=== PATIENT | female | born 1970 | race Caucasian/White ===

== ENCOUNTER 2017-10-20 22:24 | Emergency (ER) | payer BC, OTHER ==
[~2017-10-20] VITALS: Ht 167.6 cm; Wt 73.8 kg
[~2017-10-20 22:24] MED LIST: ESTR30GE TOP; LISI10TA4 PO; OMEP20TA5 PO; SERT100T PO; VERA240T PO
[2017-10-20] MEDS ORDERED: phenobarbital inj 260 MG in normal saline 100ml IV soln 99 ML IV STA (23:21)
[2017-10-20] MEDS ORDERED: thiamine 100mg tablet PO ONE (23:25)
[2017-10-20] MEDS ORDERED: ondansetron 4mg rapidly disintigrating tab PO ONE (23:25)
[2017-10-20] MEDS ORDERED: magnesium oxide 400mg tablet PO ONE (23:25)
[2017-10-20] MEDS ORDERED: normal saline 1000ML IV soln IVB ONE (23:25)
[2017-10-21] MEDS ORDERED: phenobarbital sod 130mg/ml inj. IV ONE (00:05)
[2017-10-21 00:12] LABS: BASOPHILS % (AUTO) 0.4 % (0-1); EOSINOPHILS # (AUTO) 0.1 X10'3 (0-0.9); EOSINOPHILS % (AUTO) 2.5 % (0-6); HEMATOCRIT 32.6 % (35.0-45.0); HEMOGLOBIN 11.2 g/dl (12.0-16.0); MEAN CORPUSCULAR HEMOGLOBIN 30.8 PG (27.0-31.0); MEAN CORPUSCULAR HGB CONC 34.5 % (33.0-36.5); MEAN CORPUSCULAR VOLUME 89.4 FL (78-98); MEAN PLATELET VOLUME 7.1 FL (7.4-10.4); MONOCYTES # (AUTO) 0.4 X10'3 (0-0.9); MONOCYTES % (AUTO) 6.9 % (2-12); NEUTROPHILS # (AUTO) 2.9 X10'3 (1.8-7.7); NEUTROPHILS % (AUTO) 53.2 % (42-75); PLATELET COUNT 236 X10'3 (140-440); RED BLOOD COUNT 3.64 X10'6 (4.20-5.60); RED CELL DISTRIBUTION WIDTH 14.3 % (11.5-14.5); WHITE BLOOD COUNT 5.5 X10'3 (4.5-11.0)
[2017-10-21 00:25] LABS: ALANINE AMINOTRANSFERASE 56 U/L (12-78); ALBUMIN 3.4 G/DL (3.4-5.0); ALBUMIN/GLOBULIN RATIO 0.8 (1.1-1.5); ALKALINE PHOSPHATASE 54 IU/L (46-116); ANION GAP 12 (8-16); ASPARTATE AMINO TRANSFERASE 59 U/L (10-37); BILIRUBIN,TOTAL 0.2 MG/DL (0.1-1.0); BLOOD UREA NITROGEN 10 MG/DL (7-18); BUN/CREATININE RATIO 16.1 (6.6-38.0); CHLORIDE 108 MMOL/L (99-107); CREATININE 0.62 MG/DL (0.40-0.90); ETHANOL 0.272 GM/DL (0.0-0.010); GLUCOSE 87 MG/DL (70-104); MAGNESIUM 1.7 MG/DL (1.5-2.4); POTASSIUM 3.7 MMOL/L (3.5-5.1); SODIUM 145 MMOL/L (135-145); TOTAL CARBON DIOXIDE 24.9 MMOL/L (24-32); TOTAL PROTEIN 7.9 G/DL (6.4-8.2); eGFR > 90 ML/MIN
[2017-10-21 00:47] VITALS: BP 136/99
== END 2017-10-21 00:49 | disposition home or self-care (01) ==
LOC: ER 22:25
DX: F10.239 Alcohol dependence with withdrawal, unspecified (principal); F10.229 Alcohol dependence with intoxication, unspecified; Z86.19 Personal history of other infectious and parasitic diseases; Z59.0 Homelessness; Z79.899 Other long term (current) drug therapy; Y90.0 Blood alcohol level of less than 20 mg/100 ml
CPT/HCPCS: 36415; 80053; 80320; 82948; 83735; 85025; 93005; 96374; 99285; J2560; J7030

== ENCOUNTER 2021-06-01 11:01 | Emergency (ER) | payer BC, OTHER ==
[~2021-06-01] VITALS: Ht 170.2 cm; Wt 63.6 kg
[~2021-06-01 11:01] MED LIST changes: +LISI10TA27 PO; -LISI10TA4 PO
[2021-06-01] MEDS ORDERED: TETanus/Pertussis (Acell)/Diphther VAC/PF (Tdap-Adult) 0.5ml syringe IMVAC ONE (11:35)
[2021-06-01] MEDS ORDERED: normal saline 1000ml 1,000 ML IVB ONE (12:15)
[2021-06-01 12:16] LABS: BASOPHILS % (AUTO) 0.4 % (0-1); EOSINOPHILS % (AUTO) 0.5 % (0-6); HEMATOCRIT 32.8 % (35.0-45.0); LYMPHOCYTES # (AUTO) 2.2 X10'3 (1.1-4.8); LYMPHOCYTES % (AUTO) 35.7 % (21-51); MEAN CORPUSCULAR HEMOGLOBIN 32.8 PG (27.0-31.0); MEAN CORPUSCULAR HGB CONC 33.7 g/dL (33.0-36.5); MEAN CORPUSCULAR VOLUME 97.3 FL (78-98); MEAN PLATELET VOLUME 7.1 FL (7.4-10.4); MONOCYTES # (AUTO) 0.8 X10'3 (0-0.9); MONOCYTES % (AUTO) 12.4 % (2-12); NEUTROPHILS # (AUTO) 3.2 X10'3 (1.8-7.7); PLATELET COUNT 276 X10'3 (140-440); RED BLOOD COUNT 3.37 X10'6 (4.20-5.60); RED CELL DISTRIBUTION WIDTH 12.7 % (11.5-14.5); WHITE BLOOD COUNT 6.3 X10'3 (4.5-11.0)
[2021-06-01 12:30] LABS: ALANINE AMINOTRANSFERASE 75 U/L (12-78); ALBUMIN/GLOBULIN RATIO 0.8 (1.1-1.5); ALKALINE PHOSPHATASE 32 IU/L (46-116); ANION GAP 11 (8-16); ASPARTATE AMINO TRANSFERASE 44 U/L (10-37); BILIRUBIN,TOTAL 0.1 MG/DL (0.1-1.0); BLOOD UREA NITROGEN 10 MG/DL (7-18); BUN/CREATININE RATIO 15.6 (6.6-38.0); CALCIUM 8.5 MG/DL (8.5-10.1); CHLORIDE 110 MMOL/L (99-107); CREATININE 0.64 MG/DL (0.40-0.90); GLUCOSE 100 MG/DL (70-104); POTASSIUM 3.6 MMOL/L (3.5-5.1); SODIUM 144 MMOL/L (135-145); TOTAL CARBON DIOXIDE 23.4 MMOL/L (24-32); TOTAL PROTEIN 6.8 G/DL (6.4-8.2); eGFR > 90 ML/MIN
[2021-06-01 12:33] LABS: ETHANOL 0.397 GM/DL (0.0-0.010)
[2021-06-01] MEDS ORDERED: ATOM40CA7 PO (13:08)
[2021-06-01] MEDS ORDERED: BENA20TA10 PO (13:09)
[2021-06-01] MEDS ORDERED: PANT-47 PO (13:11)
[2021-06-01 13:12] LABS: URINE HCG NEGATIVE (NEG)
--- NOTE | 2021-06-01 13:21 | NUR ---
pt awoke to use restroom. pt ambulated independently and gave urine sample. pt was informed of 5150 status. pt was cooperative for assessments.
[2021-06-01 13:26] LABS: URINE AMPHETAMINE SCREEN NEGATIVE (Neg); URINE BARBITUATE SCREEN NEGATIVE (Neg); URINE BENZODIAZEPINES SCREEN POSITIVE (Neg); URINE CANNABINOID SCREEN NEGATIVE (Neg); URINE COCAINE SCREEN NEGATIVE (Neg); URINE METHADONE SCREEN NEGATIVE (Neg); URINE OPIATE SCREEN NEGATIVE (Neg); URINE PHENCYCLIDINE SCREEN NEGATIVE (Neg)
[2021-06-01] MEDS: atomoxetine 40 MG capsule PO SCH (13:34)
--- NOTE | 2021-06-01 15:51 | NUR ---
pt awoke and ate some of her lunch. pt denies having any concerns at this time.
--- NOTE | 2021-06-01 18:30 | NUR ---
Patient is sleeping quietly, ETOL recently. In view from nursing station. No distress observed.
--- NOTE | 2021-06-01 19:30 | NUR ---
Patient awake and is cooperative. [facility] will follow more in the morning when patient's alcohol levels are reduced. Patient tells this internal communications writer that she is depressed and has had recent suicidal ideations, no plan now. Patient states she drinks 2 bottles of wine and a half pint of whiskey daily. Patient was able to ambulate to the bathroom with no issues.
--- NOTE | 2021-06-01 19:50 | NUR ---
This investment underwriter consulted with Dr. Jacob concerning alcohol history and a PRN order is being placed for Ativan 1mg PO q4h for anxiety/agitation. Future consideration will be given if needed to institute CIWA protocol.
--- NOTE | 2021-06-01 22:03 | NUR ---
Patient is within view of the nursing station and is sleeping on her left side. No distress is observed and her bed is in low abel's position.
[2021-06-01] MEDS: LORazepam 1 MG tablet PO PRN (23:10)
--- NOTE | 2021-06-01 23:12 | NUR ---
Patient awake with mild anxiety. PRN ativan 1mg PO was given. Patient returned to sleep. Will continue to monitor.
--- NOTE | 2021-06-02 01:29 | NUR ---
Patient is positioned in a side-lying position on her left side. She is sleeping.
--- NOTE | 2021-06-02 03:27 | NUR ---
Patient is lying on her left side and is sleeping. Will continue to monitor.
--- NOTE | 2021-06-02 04:57 | NUR ---
Patient is sleeping quietly on her left side. No distress. In view from nurses station.
[2021-06-02 05:37] VITALS: BP_DIAS 83
[2021-06-02] MEDS ORDERED: pantoprazole 40mg Tablet.DR PO SCH (08:00)
[2021-06-02] MEDS ORDERED: lisinopril 20mg tablet PO SCH (08:00)
[2021-06-02] MEDS ORDERED: verapamil SR 120mg (sust. release) tab PO SCH (08:00)
[2021-06-02] MEDS: atomoxetine 40 MG capsule PO SCH (08:36)
[2021-06-02 08:37] VITALS: BP_SYST 129
[2021-06-02] MEDS: LORazepam 1 MG tablet PO PRN (08:40)
--- NOTE | 2021-06-02 08:57 | NUR ---
Pt up to bathroom steady gait and breakfast given. Pt ate and took all am medications. She also requested another Ativan. Ativan given. [facility] at bedside for eval.
--- NOTE | 2021-06-02 10:17 | NUR ---
Pt Francois called to picker tender pt for D/c
== END 2021-06-02 11:15 ==
LOC: ER 11:02
DX: S11.91XA Laceration without foreign body of unspecified part of neck, initial encounter (principal); Z20.822 Contact with and (suspected) exposure to COVID-19; R45.851 Suicidal ideations; F41.9 Anxiety disorder, unspecified; F31.9 Bipolar disorder, unspecified; Z86.19 Personal history of other infectious and parasitic diseases; Z72.89 Other problems related to lifestyle; Z79.899 Other long term (current) drug therapy; W26.0XXA Contact with knife, initial encounter; Y93.89 Activity, other specified; Y92.89 Other specified places as the place of occurrence of the external cause; Y99.8 Other external cause status
CPT/HCPCS: 36415; 80053; 80305; 80320; 81025; 85025; 87635; 90715; 96360; 99285; C9803; J7030

== ENCOUNTER 2021-06-04 22:09 | Inpatient (IN) | payer BC ==
[~2021-06-04] VITALS: Ht 167.6 cm; Wt 58.8 kg
[~2021-06-04 22:09] MED LIST changes: +ATOM40CA7 PO; +BENA20TA83 PO; -ESTR30GE TOP; -LISI10TA27 PO; -OMEP20TA5 PO; +PANT-47 PO; -SERT100T PO
--- NOTE | 2021-06-04 22:30 | NUR ---
Pt was transferred over from main ER to bed 22. Brought in by [facility] on a 5150. Per the pt was trying to re-open her laceration on her right neck from 2 days ago when she cut her throat. Pt is +SI stating that she just wants to go to sleep. She stated she just lost her job. Pt stated she drank about a quart of hard alcohol this evening and does it every day. Pt is calm and cooperative.
[2021-06-04 23:08] LABS: URINE AMPHETAMINE SCREEN NEGATIVE (Neg); URINE BARBITUATE SCREEN NEGATIVE (Neg); URINE BENZODIAZEPINES SCREEN POSITIVE (Neg); URINE CANNABINOID SCREEN NEGATIVE (Neg); URINE COCAINE SCREEN NEGATIVE (Neg); URINE METHADONE SCREEN NEGATIVE (Neg); URINE OPIATE SCREEN NEGATIVE (Neg); URINE PHENCYCLIDINE SCREEN NEGATIVE (Neg)
[2021-06-04] MEDS ORDERED: VERA120T19 PO (23:15)
[2021-06-04 23:37] LABS: BASOPHILS % (AUTO) 0.7 % (0-1); EOSINOPHILS # (AUTO) 0.1 X10'3 (0-0.9); EOSINOPHILS % (AUTO) 1.5 % (0-6); HEMATOCRIT 33.4 % (35.0-45.0); HEMOGLOBIN 11.4 g/dl (12.0-16.0); LYMPHOCYTES # (AUTO) 2.5 X10'3 (1.1-4.8); LYMPHOCYTES % (AUTO) 41.6 % (21-51); MEAN CORPUSCULAR HGB CONC 34.2 g/dL (33.0-36.5); MEAN CORPUSCULAR VOLUME 96.4 FL (78-98); MEAN PLATELET VOLUME 6.7 FL (7.4-10.4); MONOCYTES # (AUTO) 0.4 X10'3 (0-0.9); MONOCYTES % (AUTO) 7.3 % (2-12); NEUTROPHILS % (AUTO) 48.9 % (42-75); PLATELET COUNT 312 X10'3 (140-440); RED BLOOD COUNT 3.46 X10'6 (4.20-5.60); RED CELL DISTRIBUTION WIDTH 12.7 % (11.5-14.5)
--- NOTE | 2021-06-04 23:41 | NUR ---
Pt appears to be sleeping.
[2021-06-04 23:50] LABS: ALANINE AMINOTRANSFERASE 81 U/L (12-78); ALBUMIN 3.2 G/DL (3.4-5.0); ALBUMIN/GLOBULIN RATIO 0.8 (1.1-1.5); ALKALINE PHOSPHATASE 35 IU/L (46-116); ANION GAP 8 (8-16); ASPARTATE AMINO TRANSFERASE 54 U/L (10-37); BILIRUBIN,TOTAL 0.2 MG/DL (0.1-1.0); BLOOD UREA NITROGEN 12 MG/DL (7-18); BUN/CREATININE RATIO 18.2 (6.6-38.0); CALCIUM 8.9 MG/DL (8.5-10.1); CHLORIDE 109 MMOL/L (99-107); CREATININE 0.66 MG/DL (0.40-0.90); ETHANOL 0.218 GM/DL (0.0-0.010); GLUCOSE 77 MG/DL (70-104); POTASSIUM 3.7 MMOL/L (3.5-5.1); SODIUM 144 MMOL/L (135-145); TOTAL CARBON DIOXIDE 27.3 MMOL/L (24-32); TOTAL PROTEIN 7.4 G/DL (6.4-8.2); eGFR > 90 ML/MIN
--- NOTE | 2021-06-05 02:00 | NUR ---
pt appears to be sleeping.
--- NOTE | 2021-06-05 03:47 | NUR ---
pt appears to be sleeping.
--- NOTE | 2021-06-05 07:00 | NUR ---
Pt sleeping comfortably on left side, respirations even and unlabored. No diaphoresis noted.
[2021-06-05] MEDS ORDERED: verapamil tablet 120 MG TABLET PO SCH (08:00)
[2021-06-05] MEDS ORDERED: atomoxetine 40 MG capsule PO SCH (08:00)
[2021-06-05] MEDS ORDERED: lisinopril 20mg tablet PO SCH (08:00)
--- NOTE | 2021-06-05 08:00 | NUR ---
Pt awake requesting Ativan. Pt's ETOH was .218 upon admit. Pt reports she drinks "1 quart of wine and 1 pint of hard ETOH daily." CIWA score 3. Received order for Ativan 1mg.
[2021-06-05] MEDS ORDERED: LORazepam 1 MG tablet PO ONE ×2 (08:05→12:20)
[2021-06-05] MEDS: pantoprazole 40mg Tablet.DR PO SCH (08:23)
--- NOTE | 2021-06-05 09:04 | NUR ---
Pt was cooperative with one on one assessment. Pt denies suicidial/homicidal thoughts. Pt r/t S/I on "her drinking." "Everything is wrong" Pt is guarded in conversation, states "I know I have a drinking problem." Combined with the depression. Pt presents with depressed mood and affect. Pt ate 75% of her breakfast. Addendum: 06/05/21 at 0911 by MARIANNE Atlucy effective - TARIQWA score 1.
--- NOTE | 2021-06-05 10:23 | NUR ---
Pt woke requested water. Assessed superficial cut on right side of neck, cleansed with normal saline. Pt became tearful states "I don't want to " then stops speaking. Continues to present guarded and depressed. Addendum: 06/05/21 at 1147 by MARIANNE SA in 12/2016 - Pt came to ED r/t SA slit right side of throat with razor blade, required 3 superficial sutures. MARISOL was .223. Other visits show MARISOL .272 to .35
[2021-06-05] MEDS ORDERED: nicotine 21mg patch - 24 hr TD SCH (10:35)
[2021-06-05 11:24] LABS: CLARITY,URINE CLEAR (Clear); COLOR,URINE Yellow (Yellow); GLUCOSE, URINE Negative (Neg); KETONES,URINE Negative (Neg); NITRITES, URINE NEGATIVE (Neg); OCCULT BLOOD,URINE NEGATIVE (Neg); PROTEIN,URINE Negative (Neg); UA COLLECTION TYPE NON-SPECIFIED; UROBILINOGEN,URINE 0.2 E.U/dL (0.2-1.0)
[2021-06-05 11:25] LABS: LEUKOCYTE ESTERASE ,URINE NEGATIVE (Neg)
--- NOTE | 2021-06-05 12:26 | NUR ---
Pt resting comfortably, easily aroused to name. Diaphoresis and mild tremors noted. CIWA was 6. Received order for Ativan 1mg. A&Ox4. Obtained U/A and Covid for placement requirements. Will continue to monitor.
--- NOTE | 2021-06-05 13:16 | NUR ---
Pt awake eating lunch.
--- NOTE | 2021-06-05 14:26 | NUR ---
Pt left unit at 1425. Noted a yellowing of pt's skin when pt was out in fluorescent light. Notified [facility].
[2021-06-05] MEDS ORDERED: loperamide 2mg capsule PO PRN (14:30)
[2021-06-05] MEDS ORDERED: mag hydrox/Alum hydrox/simeth 30ml oral suspension PO PRN (14:30)
[2021-06-05] MEDS ORDERED: NICOTINE POLACRILEX 2 MG LOZENGE BC PRN (14:30)
[2021-06-05] MEDS ORDERED: magnesium hydroxide 30ml (MOM) UD suspension PO PRN (14:30)
[2021-06-05] MEDS ORDERED: acetaminophen 325mg tablet PO PRN ×2 (14:30)
[2021-06-05 15:01] VITALS: BP 119/88
[2021-06-05] MEDS ORDERED: VERA240T PO (15:45)
[2021-06-05] MEDS ORDERED: ATOM60CA PO (15:45)
[2021-06-05] MEDS ORDERED: TRAZ-256 PO (15:45)
[2021-06-05] MEDS ORDERED: LISI20TA28 PO (15:45)
[2021-06-05] MEDS ORDERED: LISI40TA13 PO (15:47)
--- NOTE | 2021-06-05 17:14 | NUR ---
ADMIT NOTE: Pt was transferred from ER overflow to [facility] today at 1425. She was cooperative with safety check, skin check, shower, and admit interventions. Pt was BIB her SO yesterday 06/04/21 to ED for SI with plan to reopen her neck laceration. Pt has a superficial self-inflicted laceration right neck which she did a with an exacto knife a couple of days prior. Pt has an extensive 25 year Hx of ETOH abuse. She has gone through rehab several times. BAL was 0.218. Pt reports she has a Hx of DT's but has never had alcohol withdrawal seizures. Pt is on a CIWA Q4H, her last score at 1600 was a 6. Pt also cut her own neck back in December of 2016. Pt reports she slit her right wrist back in 2003 and was hospitalized at [facility] for 3 days. Pt reported her depression at a 9/10 with SI, no current plan. Pt contracts for safety here. Pt has a Hx of depression, anxiety, panic, Hep C from a blood transfusion in the late , HTN, GERD, migraines, and tumor/lesion removal of thyroid and pancreas.
[2021-06-05 19:44] VITALS: BP 137/98
[2021-06-05] MEDS: traZODone 50mg tablet PO PRN (20:23)
--- NOTE | 2021-06-06 03:23 | NUR ---
Nursing Progress Note: Legal hold: Voluntary Patient is on Voluntary status for DTS Report received from BRANDON Fitzpatrick with use of SBAR. Assessment Why is pt here: Pt was transferred from ER overflow to [facility]. She was cooperative with safety check, skin check, shower, and admit interventions. Pt was BIB her SO yesterday 06/04/21 to ED for SI with plan to reopen her neck laceration. Pt has a superficial self-inflicted laceration right neck which she did a with an exacto knife a couple of days prior. Pt has an extensive 25 year Hx of ETOH abuse. She has gone through rehab several times. BAL was 0.218. Pt reports she has a Hx of DT's but has never had alcohol withdrawal seizures. Pt is on a CIWA Q4H, her last score at 1600 was a 6. Pt also cut her own neck back in December of 2016. Pt reports she slit her right wrist back in 2003 and was hospitalized at [facility] for 3 days. Pt reported her depression at a 9/10 with SI, no current plan. Pt contracts for safety here. Pt has a Hx of depression, anxiety, panic, Hep C from a blood transfusion in the late 's, HTN, GERD, migraines, and tumor/lesion removal of thyroid and pancreas. What has happened this shift: Pt was in the hallway at change of shift. Pt spent time pacing in the miranda and talking on the phone. Pts CIWA score was 6. She requested ativan and c/o anxiety, slight nausea and sweating. Pt states she usually takes 100mg of trazodone at night to sleep. Pt was given prn trazodone at . Pt states she is here due to s/i. She states her alcoholism is the main reason she has s/i. S/I, H/I: Pt denies "not right now" A/VH: Pt denies Sleep:see sleep hours ADL's: Independent Group attendance: No Were meds taken: Yes Any med S/E: None observed or reported Mental Status Exam Appearance: disheveled unkept, declined shower Eye contact: fair Behavior: Polite cooperative with care Speech: Clear, audible, WNL Mood: Depressed, anxious Affect: constricted Thought process: Circumstantial Thought Content: meeting her needs Cognition: A&O x3 Insight: fair Judgment: fair Interventions PRN's used: trazodone ativan Therapeutic interventions: 1:1 assessment, therapeutic communication, active listening, ensured contract for safety, medication education/administration/monitoring, provided clear and simple instructions, encouragement to attend groups, behavior monitoring and intervention as needed; distraction, redirection, reality orientation, and positive reinforcement, and maintained Q 15 minute safety checks. Restraints/seclusion/emergency medication: N/A Justification of Continued Inpatient Treatment: Patient continues to require a safe and therapeutic environment, medication adjustment/monitoring, and crisis intervention.
[2021-06-06 08:00] VITALS: BP 137/97
[2021-06-06] MEDS: ATOMOXETINE 60 MG PO SCH (08:00)
--- NOTE | 2021-06-06 08:30 | NUR ---
Nursing Progress Note (Medications): Pt's home medication, Atomoxetine 60mg is unavailable at this time. This was endorsed to Dr. Kamara who ordered a one-time dose of Atomoxetine 50mg this AM. Pt's will be brining in her regular dose this evening. Also, per Dr. Kamara, this telegraphic typewriter operator spoke to pt's regular psychiatry care center, [facility]. Per Litzy (worker there), pt. was also prescribed Pristiq ER 100mg in January of 2021. However, per pt. she has not been taking this medication X 2 months, but then started taking it again two weeks ago. This was endorsed to Dr. Kamara who will not re-start this medication at this time. This was endorsed to pt. who reports understanding. Also per Dr. Kamara, notify him if pt. scores over 8 on the CIWA assessment, will endorse to Noc shift.
[2021-06-06] MEDS: verapamil SR 120mg (sust. release) tab PO SCH (08:57)
[2021-06-06] MEDS: lisinopril 20mg tablet PO SCH (08:58)
[2021-06-06] MEDS: nicotine 21mg patch - 24 hr TD SCH (08:58)
[2021-06-06] MEDS: pantoprazole 40mg Tablet.DR PO SCH (08:58)
[2021-06-06] MEDS ORDERED: atomoxetine 25mg capsule PO ONE (09:20)
[2021-06-06] MEDS: LORazepam 1 MG tablet PO PRN ×2 (09:36→18:12)
[2021-06-06 10:47] LABS: HEMOGLOBIN A1C 5.2 % (4.5-6.2)
[2021-06-06 10:59] LABS: CHOL/HDL RATIO 2.4 (0.00-4.99); CHOLESTEROL 275 MG/DL (0-200); HDL CHOLESTEROL 116 MG/DL (35-60); LDL CHOLESTEROL 133 MG/DL (50-100); TRIGLYCERIDES 73 MG/DL (20-135)
--- NOTE | 2021-06-06 12:54 | NUR ---
Nursing Progress Note: Legal hold: 5150 Client on involuntary status for DTS Report received from nurse with use of SBAR: BRANDON Nelson Why are they here: Pt was transferred from ER overflow to [facility]. Pt was BIB her SO yesterday 06/04/21 to ED for SI with plan to reopen her neck laceration. Pt has a superficial self-inflicted laceration right neck which she did a with an exacto knife a couple of days prior. Pt has an extensive 25 year Hx of ETOH abuse. She has gone through rehab several times. BAL was 0.218. Pt reports she has a Hx of DT's but has never had alcohol withdrawal seizures. Pt is on a CIWA Q4H, her last score at 1600 was a 6. Pt also cut her own neck back in December of 2016. Pt reports she slit her right wrist back in 2003 and was hospitalized at [facility] for 3 days. Pt reported her depression at a 9/10 with SI, no current plan. Pt contracts for safety here. Pt has a Hx of depression, anxiety, panic, Hep C from a blood transfusion in the late , HTN, GERD, migraines, and tumor/lesion removal of thyroid and pancreas. Assessment What has happened this shift: Received pt. sleeping in bed at the beginning of the shift, she was awoken for breakfast in the Group Room. Afterwards, pt. returned back to her room where she sat on her bed, this specification writer introduced self and established rapport. Pt. presents as cooperative, anxious, and slightly withdrawn. She denies any S/I, H/I, A/V/ALCOCER, and no delusional statements made. However pt. does admit to anxiety and depression r/t to being on the unit, and when this specification writer questions her regarding her self inflicted superficial rt. neck lacerations, pt. become tearful. Pt. declines to discuss the event further and becomes more guarded with conversation, she states, "I just want to get better." Pt. does attend group, and remains up throughout the shift, however continues to be withdrawn from others. Pt's will be brining in her medication tonight (see previous note). She continues on CIWA, and scores a 6 this AM, endorsed to Dr. Kamara and will continue to monitor. PRN Ativan administered with effectiveness. S/I, H/I: Denies A/VH: Pt. denies, does not appear internally preoccupied Sleep: Pt. reports she slept well, sleep hours are 10 ADL's: Independent Group attendance: Yes Were meds taken: Yes Any med S/E: None Mental Status Exam Appearance: Neat and appropriately dressed Eye contact: Good Behavior: Cooperative, anxious, and slightly withdrawn Speech: Soft and minimal responses Mood: Anxious Affect: Constricted Thought process: Poverty of thought Thought Content: WNL Cognition: A&O X4 Insight: Poor Judgment: Poor Interventions PRN's used: Ativan Therapeutic interventions: Introduced self and established rapport, maintained a safe and therapeutic environment, ensured contract for safety, provided clear and simple instructions, provided active listening and positive encouragement, clarified medications per MD, and maintained Q 15min safety checks. Restraints/seclusion/emergency medication: N/A Justification of Continued Inpatient Treatment: Pt. requires interruption of current crisis, a safe and supportive environment, and Q 15min safety checks.
--- NOTE | 2021-06-06 14:30 | NUR ---
Group Art Tx, Continued: Patient was responsive to the topic, drawing and journaling exercise. She was tearful at times as she colleen. Patient wrote: I am opening to my new season of change.... I think the meaning of life is to be independently happy. I feel I can stop worrying about how people look at me. I wish to keep an open & honest attitude. I want to look at the good side of everything. I need my families unconditional support. I will follow my dreams of being successful. I believe I can help myself by helping others. I am trustworthy and a good human." Patient remained encouraged and supportive of her peers during the group process. *Please refer to the [facility] Case Notes for entire overview. Ibis Toribio MA, GENERAL ADMINISTRATOR #[id number] [facility], Art Therapist Addendum: 06/06/21 at 1703 by Ibis MARTINS Amended: Links added.
[2021-06-06 19:55] VITALS: BP 110/83
[2021-06-06] MEDS: traZODone 50mg tablet PO PRN (20:38)
--- NOTE | 2021-06-06 20:39 | NUR ---
REMOVED NICOTINE PATCH
[2021-06-07] MEDS: traZODone 50mg tablet PO PRN ×3 (02:53→22:40)
--- NOTE | 2021-06-07 04:17 | NUR ---
Nursing Progress Note: Legal hold: 5150 Client on involuntary status for DTS Report received from nurse with use of SBAR: BRANDON Fitzpatrick Why are they here: Pt was transferred from ER overflow to [facility]. Pt was BIB her SO yesterday 06/04/21 to ED for SI with plan to reopen her neck laceration. Pt has a superficial self-inflicted laceration right neck which she did a with an exacto knife a couple of days prior. Pt has an extensive 25 year Hx of ETOH abuse. She has gone through rehab several times. BAL was 0.218. Pt reports she has a Hx of DT's but has never had alcohol withdrawal seizures. Pt is on a CIWA Q4H, her last score at 1600 was a 6. Pt also cut her own neck back in December of 2016. Pt reports she slit her right wrist back in 2003 and was hospitalized at [facility] for 3 days. Pt reported her depression at a 9/10 with SI, no current plan. Pt contracts for safety here. Pt has a Hx of depression, anxiety, panic, Hep C from a blood transfusion in the late , HTN, GERD, migraines, and tumor/lesion removal of thyroid and pancreas. Assessment What has happened this shift: Pt was in her room resting at change of shift. Pt spent time in the rec room watching tv and continues to report feeling depressed. Pt is hoping to "get better" but feels hopeless that it will happen, stating she has been to rehab several times. Pt scored reported low anxiety during CIWA assessment with a score of 1 and was not given any ativan. She requested prn trazodone at HS and slept for approx 6 hours then approached the nurses station stating she had been laying awake and couldnt sleep and would like a repeat dose of trazodone. Pt CIWA score was 0 and she denies anxiety and did not want ativan prn. Pt was given a prn dose of trazodone. Pt states she usually takes 100mg when she is home. S/I, H/I: Denies A/VH: Pt. denies, does not appear internally preoccupied Sleep: see sleep hours ADL's: Independent Group attendance: Yes Were meds taken: Yes Any med S/E: None Mental Status Exam Appearance: Neat and appropriately dressed Eye contact: Good Behavior: Cooperative, anxious, and slightly withdrawn Speech: Soft and minimal responses Mood: Depressed Affect: Constricted Thought process: Poverty of thought Thought Content: feeling depressed wants to get better but feels hopeless about her situation Cognition: A&O X4 Insight: Poor Judgment: Poor Interventions PRN's used: trazodone Therapeutic interventions: Introduced self and established rapport, maintained a safe and therapeutic environment, ensured contract for safety, provided clear and simple instructions, provided active listening and positive encouragement, clarified medications per MD, and maintained Q 15min safety checks. Restraints/seclusion/emergency medication: N/A Justification of Continued Inpatient Treatment: Pt. requires interruption of current crisis, a safe and supportive environment, and Q 15min safety checks.
[2021-06-07 08:00] VITALS: BP 138/86
[2021-06-07] MEDS: verapamil SR 120mg (sust. release) tab PO SCH (08:26)
[2021-06-07] MEDS: pantoprazole 40mg Tablet.DR PO SCH (08:26)
[2021-06-07] MEDS: ATOMOXETINE 60 MG PO SCH (08:26)
[2021-06-07] MEDS: lisinopril 20mg tablet PO SCH (08:27)
[2021-06-07] MEDS: nicotine 21mg patch - 24 hr TD SCH (08:28)
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
[2021-06-07] MEDS ORDERED: diphenhydrAMINE 50 mg/ml inj ONE (11:20)
[2021-06-07] MEDS ORDERED: haloperidol lactate 5mg/ml inj ONE (11:20)
[2021-06-07] MEDS ORDERED: LORazepam 2 mg/ml vial ONE (11:21)
--- NOTE | 2021-06-07 12:18 | NUR ---
Met with Felicita to complete psychosocial assessment. Felicita is a 51 y/o female who was placed on 5150 by [facility] for danger to self. She had attempted to open a wound on her throat in a suicide attempt while intoxicated on 06/04/21. Whe presented to the ED on 06/01/21 with a self inflicted wound to her neck as a suicide attempt while intoxicated. She was evaluated by [facility] and released the next day with a plan for follow up with she did not do. Felicita has a long history of depression which began as a teen. This is her 3nd psychiatric admission.She was hospitalized in 2017 and about 10 years prior to that. She has attempted suicide 3-4 times. She has a long history of alcohol abuse and reported she has been to rehab "too many times". Felicita reported she was laid off about 2 weeks ago which has been a huge stressor for her. She reported when she is working she only consumes about 2 glasses/wine night. She reported now that she has not been working she has been "drinking excessively" which includes a pint of whiskey and a bottle of wine/day. She is not interested in alcohol treatment at this time, "I know what I need to do". She plans on returning home and following up with Dr Godoy upon discharge. LEAH Landa Addendum: 06/07/21 at 1218 by Samara Willard SS Amended: Links added.
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
[2021-06-07 20:00] VITALS: BP 103/76
--- NOTE | 2021-06-08 05:00 | NUR ---
RN PROGRESS NOTE: LEGAL HOLD: 5150 for DTS REASON FOR ADMIT: Self-inflicted laceration to neck. Depression/anxiety and suicidal ideation. THIS SHIFT: Client was sitting in bed, reading a book at [facility]. She makes good eye contact, and is Alert/Oriented. Reports that admission to the unit has been helpful and denies side effects to medications. 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 Client reports that her current crisis began when she was laid-off from her job. Clients' thought process is linear and connected. Her mood is stable at this time. Client showered. Compliant with meds. Required a second dose of 50 mg Trazodone PO for sleep.
[2021-06-08] MEDS ORDERED: atomoxetine 40 MG capsule PO SCH (08:00)
[2021-06-08] MEDS: nicotine 21mg patch - 24 hr TD SCH (08:30)
[2021-06-08] MEDS: verapamil SR 120mg (sust. release) tab PO SCH (08:30)
[2021-06-08] MEDS: lisinopril 20mg tablet PO SCH (08:31)
[2021-06-08] MEDS: pantoprazole 40mg Tablet.DR PO SCH (08:31)
[2021-06-08 08:32] VITALS: BP 102/69
[2021-06-08] MEDS ORDERED: docusate sod 100mg capsule PO SCH (12:30)
--- NOTE | 2021-06-08 13:41 | NUR ---
Nursing Progress Note: Legal hold: 5150 Client on involuntary status for DTS Report received from nurse with use of SBAR: Akila Fry RN Why are they here: Pt was transferred from ER overflow to [facility]. Pt was BIB her SO yesterday 06/04/21 to ED for SI with plan to reopen her neck laceration. Pt has a superficial self-inflicted laceration right neck which she did a with an exacto knife a couple of days prior. Pt has an extensive 25 year Hx of ETOH abuse. She has gone through rehab several times. BAL was 0.218. Pt reports she has a Hx of DT's but has never had alcohol withdrawal seizures. Pt is on a CIWA Q4H, her last score at 1600 was a 6. Pt also cut her own neck back in December of 2016. Pt reports she slit her right wrist back in 2003 and was hospitalized at [facility] for 3 days. Pt reported her depression at a 9/10 with SI, no current plan. Pt contracts for safety here. Pt has a Hx of depression, anxiety, panic, Hep C from a blood transfusion in the late 's, HTN, GERD, migraines, and tumor/lesion removal of thyroid and pancreas. Assessment What has happened this shift: Received pt. sleeping in bed at the beginning of the shift, she was awoken for breakfast in the Group Room. Afterwards, pt. remained up pacing in the hallway, she appears restless. 1:1 completed, pt. reports she is disappointed because she was hoping to go home, but she understands that the doctor is adjusting her medications and would like to monitor her longer. Pt. appears to be gaining insight and states with a smile, "I'm okay with that, there's noting I can do about it and I'm really enjoying the groups." Pt. continues to deny any S/I and also denies any depression this shift. She does admit to some anxiety r/t to her desire to check her cell phone messages from work and see if she really was laid off from her job. Pt. states, "I'm just afraid of what I will find. I pissed the wrong person off." This commercial lines underwriter sat with her while she checked her phone and pt. handled this well. No tearful episodes or s/s of distress were exhibited. Pt. remains up throughout the day and appears to be interacting more with others. Pt. reported stomach pain this shift r/t constipation, she states this is a chronic issue for her. This was endorsed to Dr. Kamara and obtained an order for Colace 200mg daily, medication administered and will continue to monitor. S/I, H/I: Denies A/VH: Pt. denies, does not appear internally preoccupied Sleep: Pt. reports she slept well, sleep hours are 5.75 ADL's: Independent Group attendance: Yes Were meds taken: Yes Any med S/E: None Mental Status Exam Appearance: Neat and appropriately dressed Eye contact: Good Behavior: Cooperative, restless, and slightly withdrawn Speech: Soft, WNL Mood: Anxious Affect: Blunted with animation Thought process: Linear Thought Content: WNL Cognition: A&O X4 Insight: Fair Judgment: Fair Interventions PRN's used: None Therapeutic interventions: Maintained a safe and therapeutic environment, ensured contract for safety, provided clear and simple instructions, provided active listening and positive encouragement, monitored constipation and obtained an order for Colace, and maintained Q 15min safety checks. Restraints/seclusion/emergency medication: N/A Justification of Continued Inpatient Treatment: Per Dr. Kamara, pt. requires medication adjustments and a safe and supportive environment.
[2021-06-08 20:00] VITALS: BP 92/60
--- NOTE | 2021-06-08 22:26 | NUR ---
COAT CHECK ATTENDANT NOTE: Client left AMA at 22:25. Medications and personal belongings were inventoried with client. Client was escorted by Tu Y. to a private vehicle belonging to her daughter. The clients 5[address] at 14:25[address] Dr Kamara was notified. This RN encouraged the client to stay overnight and speak with Dr Kamara in the am. Client refused to sign in voluntarily. The client stated "I can do the med adjustment outside of the hospital." The client denied SI/HI and contracted for safety. This RN spoke with clients spouse (with her verbal permission). Clients spouse expressed concern about discharge and reported that the client had had four recent hospitalizations r/t excessive drinking and threats of suicide. Spouse reports the client has been unstable. Client began drinking heavily after the of her daughter. Client and spouse had conflicting parenting style causing stress in the relationship. Client reports history of significant ETOH use. At this time client is planning to return home, check the status of her job, and attend AA. Client is AO x 4. Mood is stable at this time.
[2021-06-09] MEDS ORDERED: ATOM80CA3 PO (12:59)
== END 2021-06-08 22:25 | disposition left against medical advice (07) | DRG 885 ==
LOC: ER 22:10 → ED HOLD 06-05 10:26 → ADULT MH 06-05 14:29
PROVIDERS: ADMIT Psychiatry & Neurology Psychiatry; ATTEND Psychiatry & Neurology Psychiatry
DX: F33.9 Major depressive disorder, recurrent, unspecified (principal); B19.20 Unspecified viral hepatitis C without hepatic coma; R45.851 Suicidal ideations; Z20.822 Contact with and (suspected) exposure to COVID-19; Z53.29 Procedure and treatment not carried out because of patient's decision for other reasons; F41.0 Panic disorder [episodic paroxysmal anxiety]; F90.9 Attention-deficit hyperactivity disorder, unspecified type; Z81.8 Family history of other mental and behavioral disorders; Z91.19 Patient's noncompliance with other medical treatment and regimen
CPT/HCPCS: 36415; 80053; 80061; 80305; 80320; 81003; 83036; 84443; 85025; 87081; 87635; 99285; C9803; J1200; J1630; J2060

== ENCOUNTER 2021-06-21 14:44 | Emergency (ER) | payer BC ==
[~2021-06-21] VITALS: Ht 167.6 cm; Wt 58.5 kg
[~2021-06-21 14:44] MED LIST changes: -ATOM40CA7 PO; +ATOM80CA3 PO; -BENA20TA83 PO; +LISI40TA13 PO; +TRAZ-256 PO
[2021-06-21 16:04] VITALS: BP 102/67
== END 2021-06-21 16:33 | disposition home or self-care (01) ==
LOC: ER 14:45
DX: Z02.89 Encounter for other administrative examinations (principal); F10.20 Alcohol dependence, uncomplicated; F41.9 Anxiety disorder, unspecified; F31.9 Bipolar disorder, unspecified; Z86.19 Personal history of other infectious and parasitic diseases; Z98.890 Other specified postprocedural states; Z72.89 Other problems related to lifestyle; Z79.899 Other long term (current) drug therapy; Y90.9 Presence of alcohol in blood, level not specified
CPT/HCPCS: 99282

== ENCOUNTER 2022-12-27 03:20 | Emergency (ER) | payer BC ==
[~2022-12-27] VITALS: Ht 167.6 cm; Wt 59.1 kg
[2022-12-27] MEDS ORDERED: normal saline 1000ml 1,000 ML IV ONE (03:30)
[2022-12-27] MEDS ORDERED: ondansetron/PF 4mg/2ml inj IV ONE (03:30)
[2022-12-27] MEDS ORDERED: pantoprazole 40mg IV 80 MG in normal saline 100ml IV soln 100 ML IV ONE (03:40)
[2022-12-27] MEDS ORDERED: pantoprazole 40MG/NS 100ML BAG 100 ML IV ONE ×2 (03:50→04:04)
[2022-12-27 03:55] LABS: BASOPHILS % (AUTO) 0.5 % (0-1); EOSINOPHILS % (AUTO) 0.1 % (0-6); HEMATOCRIT 39.2 % (35.0-45.0); HEMOGLOBIN 13.8 g/dl (12.0-16.0); LYMPHOCYTES # (AUTO) 2.3 X10'3 (1.1-4.8); LYMPHOCYTES % (AUTO) 23.3 % (21-51); MEAN CORPUSCULAR HEMOGLOBIN 32.4 PG (27.0-31.0); MEAN CORPUSCULAR HGB CONC 35.3 g/dL (33.0-36.5); MEAN CORPUSCULAR VOLUME 91.8 FL (78-98); MEAN PLATELET VOLUME 6.7 FL (7.4-10.4); MONOCYTES # (AUTO) 0.8 X10'3 (0-0.9); MONOCYTES % (AUTO) 7.8 % (2-12); NEUTROPHILS # (AUTO) 6.8 X10'3 (1.8-7.7); NEUTROPHILS % (AUTO) 68.3 % (42-75); PLATELET COUNT 344 X10'3 (140-440); RED BLOOD COUNT 4.27 X10'6 (4.20-5.60); RED CELL DISTRIBUTION WIDTH 14.1 % (11.5-14.5)
[2022-12-27 04:09] LABS: ALANINE AMINOTRANSFERASE 73 U/L (12-78); ALBUMIN/GLOBULIN RATIO 0.9 (1.1-1.5); ALKALINE PHOSPHATASE 50 IU/L (46-116); ANION GAP 8 (8-16); ASPARTATE AMINO TRANSFERASE 52 U/L (10-37); BILIRUBIN,TOTAL 0.3 MG/DL (0.1-1.0); BLOOD UREA NITROGEN 11 MG/DL (7-18); BUN/CREATININE RATIO 17.2 (10.0-20.0); CALCIUM 9.9 MG/DL (8.5-10.1); CHLORIDE 87 MMOL/L (99-107); CREATININE 0.64 MG/DL (0.40-0.90); ETHANOL 0.207 GM/DL (0.0-0.010); GLUCOSE 143 MG/DL (70-104); LIPASE 178 U/L (73-393); POTASSIUM 3.4 MMOL/L (3.5-5.1); SODIUM 128 MMOL/L (135-145); TOTAL CARBON DIOXIDE 33.4 MMOL/L (24-32); TOTAL PROTEIN 8.5 G/DL (6.4-8.2); eGFR > 90 ML/MIN
[2022-12-27] MEDS ORDERED: POTASSIUM BICARB 20meq eff tab 20 MEQ TABLET.EFF PO ONE (04:20)
[2022-12-27] MEDS ORDERED: ONDA8TAB13 PO (04:35)
[2022-12-27] MEDS ORDERED: proCHLORperazine 10 MG/2 ml inj IV ONE (04:35)
[2022-12-27 04:48] VITALS: BP 138/84
== END 2022-12-27 04:50 | disposition home or self-care (01) ==
LOC: ER 03:21
DX: K29.20 Alcoholic gastritis without bleeding (principal); F31.9 Bipolar disorder, unspecified
CPT/HCPCS: 36415; 80053; 80320; 83690; 84484; 85025; 96361; 96374; 96375; 99284; C9113; J0780; J2405; J7030

== ENCOUNTER 2023-01-08 12:45 | Emergency (ER) | payer BC ==
[~2023-01-08] VITALS: Ht 167.6 cm; Wt 59.1 kg
[~2023-01-08 12:45] MED LIST changes: +ONDA8TAB13 PO
[2023-01-08] MEDS ORDERED: ATOM25CA6 PO (12:58)
[2023-01-08] MEDS ORDERED: FLUO20CA39 PO (13:00)
[2023-01-08] MEDS ORDERED: BENA20TA82 PO (13:00)
[2023-01-08 13:26] LABS: CLARITY,URINE CLEAR (Clear); COLOR,URINE STRAW (Yellow); GLUCOSE, URINE NEGATIVE (Neg); KETONES,URINE NEGATIVE (Neg); LEUKOCYTE ESTERASE ,URINE NEGATIVE (Neg); NITRITES, URINE NEGATIVE (Neg); OCCULT BLOOD,URINE NEGATIVE (Neg); PH,URINE 5.5 (4.8-8.0); PROTEIN,URINE NEGATIVE (Neg); UROBILINOGEN,URINE 0.2 E.U/dL (0.2-1.0)
[2023-01-08 13:32] LABS: UA COLLECTION TYPE VOIDED
[2023-01-08 13:35] LABS: BASOPHILS % (AUTO) 0.4 % (0-1); EOSINOPHILS # (AUTO) 0.1 X10'3 (0-0.9); HEMATOCRIT 38.6 % (35.0-45.0); HEMOGLOBIN 13.3 g/dl (12.0-16.0); LYMPHOCYTES # (AUTO) 2.5 X10'3 (1.1-4.8); LYMPHOCYTES % (AUTO) 24.9 % (21-51); MEAN CORPUSCULAR HEMOGLOBIN 32.4 PG (27.0-31.0); MEAN CORPUSCULAR HGB CONC 34.4 g/dL (33.0-36.5); MEAN CORPUSCULAR VOLUME 94.1 FL (78-98); MEAN PLATELET VOLUME 6.3 FL (7.4-10.4); MONOCYTES # (AUTO) 0.7 X10'3 (0-0.9); MONOCYTES % (AUTO) 6.5 % (2-12); NEUTROPHILS # (AUTO) 6.8 X10'3 (1.8-7.7); NEUTROPHILS % (AUTO) 67.2 % (42-75); PLATELET COUNT 427 X10'3 (140-440); RED CELL DISTRIBUTION WIDTH 14.6 % (11.5-14.5); WHITE BLOOD COUNT 10.1 X10'3 (4.5-11.0)
[2023-01-08 13:49] LABS: URINE AMPHETAMINE SCREEN NEGATIVE (Neg); URINE BARBITUATE SCREEN NEGATIVE (Neg); URINE BENZODIAZEPINES SCREEN NEGATIVE (Neg); URINE CANNABINOID SCREEN NEGATIVE (Neg); URINE COCAINE SCREEN NEGATIVE (Neg); URINE METHADONE SCREEN NEGATIVE (Neg); URINE OPIATE SCREEN NEGATIVE (Neg); URINE PHENCYCLIDINE SCREEN NEGATIVE (Neg)
[2023-01-08 13:50] LABS: ALANINE AMINOTRANSFERASE 57 U/L (12-78); ALBUMIN 3.9 G/DL (3.4-5.0); ALBUMIN/GLOBULIN RATIO 0.9 (1.1-1.5); ALKALINE PHOSPHATASE 51 IU/L (46-116); ANION GAP 10 (8-16); ASPARTATE AMINO TRANSFERASE 40 U/L (10-37); BILIRUBIN,TOTAL 0.2 MG/DL (0.1-1.0); BLOOD UREA NITROGEN 7 MG/DL (7-18); BUN/CREATININE RATIO 11.7 (10.0-20.0); CALCIUM 9.8 MG/DL (8.5-10.1); CHLORIDE 95 MMOL/L (99-107); GLUCOSE 109 MG/DL (70-104); POTASSIUM 4.1 MMOL/L (3.5-5.1); SODIUM 129 MMOL/L (135-145); TOTAL CARBON DIOXIDE 24.5 MMOL/L (24-32); TOTAL PROTEIN 8.2 G/DL (6.4-8.2); eGFR > 90 ML/MIN
[2023-01-08 14:02] LABS: ETHANOL 0.345 GM/DL (0.0-0.010)
[2023-01-08] MEDS ORDERED: famotidine/PF 10 mg/ml inj IV ONE (15:20)
[2023-01-08] MEDS ORDERED: folic acid 1mg/0.2ml inj IV ONE (15:20)
[2023-01-08] MEDS ORDERED: ondansetron/PF 4mg/2ml inj IV ONE (15:20)
[2023-01-08] MEDS ORDERED: normal saline 1000ML IV soln IV ONE (15:20)
[2023-01-08] MEDS ORDERED: thiamine 100mg/ml 2ml inj. IV ONE (15:20)
[2023-01-08] MEDS ORDERED: acetaminophen 325mg tablet PO ONE (15:45)
--- NOTE | 2023-01-08 16:05 | NUR ---
Patient brought back to room 22 with two friends. Patient is crying off and on. I.V. started left antecubital and running normal saline. is now at bedside. Rosalio BRITO here to evaluate patient. Patient reports being depressed and suicidal. Blood ETOH is .345.
--- NOTE | 2023-01-08 16:53 | NUR ---
PACKET FAXED TO [facility]
--- NOTE | 2023-01-08 16:53 | NUR ---
PT BROUGHT BACK STRAIGHT FROM [facility] @[id number]
[2023-01-08] MEDS ORDERED: haloperidol lactate 5mg/ml inj IM PRN (18:45)
[2023-01-08] MEDS ORDERED: cloNIDine 0.1 mg tablet PO PRN (18:45)
[2023-01-08] MEDS ORDERED: LORazepam 1 MG tablet PO PRN (18:45)
--- NOTE | 2023-01-08 19:24 | NUR ---
Patient lying in bed after finishing her dinner. Patient is crying and says "I don't know what to do about my life". Patient is very upset that her daughter is getting Friday, and patient is not invited. Patient reports, "I just want to ". Patient states that she has had prior suicidal attempts: She has taken a gun and put it to her head. She slit her throat and her wrist. Patient is crying to herself. NaCl 2500 liters infused.
[2023-01-08] MEDS ORDERED: non-formulary drug (Ondansetron 8mg ODT*** (Ondansetron Odt) 1 TAB) PO SCH (20:00)
--- NOTE | 2023-01-08 20:57 | NUR ---
Patient is sleeping prone in bed after 2 mg of Ativan p.o. was given. Patient states that she has insomnia. No distress noted.
--- NOTE | 2023-01-08 23:46 | NUR ---
Client is resting on her right side. Resp even and unlabored.
--- NOTE | 2023-01-09 00:36 | NUR ---
Patient is laying on her left side sleeping. Respirations are even and nonlabored.
--- NOTE | 2023-01-09 03:58 | NUR ---
Patient continues to sleep in bed. No distress noted.
--- NOTE | 2023-01-09 05:28 | NUR ---
Patient is sleeping on her right side in bed. Respirations are even and unlabored.
[2023-01-09 05:47] VITALS: BP_DIAS 105
--- NOTE | 2023-01-09 06:35 | NUR ---
Pt is asleep in bed. No distress at this time.
[2023-01-09 07:52] LABS: BASOPHILS % (AUTO) 0.4 % (0-1); EOSINOPHILS # (AUTO) 0.1 X10'3 (0-0.9); EOSINOPHILS % (AUTO) 1.8 % (0-6); HEMOGLOBIN 12.3 g/dl (12.0-16.0); LYMPHOCYTES # (AUTO) 0.9 X10'3 (1.1-4.8); LYMPHOCYTES % (AUTO) 15.7 % (21-51); MEAN CORPUSCULAR HEMOGLOBIN 32.1 PG (27.0-31.0); MEAN CORPUSCULAR HGB CONC 34.1 g/dL (33.0-36.5); MEAN CORPUSCULAR VOLUME 94.2 FL (78-98); MEAN PLATELET VOLUME 6.2 FL (7.4-10.4); MONOCYTES # (AUTO) 0.4 X10'3 (0-0.9); MONOCYTES % (AUTO) 6.9 % (2-12); NEUTROPHILS # (AUTO) 4.3 X10'3 (1.8-7.7); NEUTROPHILS % (AUTO) 75.2 % (42-75); PLATELET COUNT 298 X10'3 (140-440); RED BLOOD COUNT 3.82 X10'6 (4.20-5.60); RED CELL DISTRIBUTION WIDTH 14.8 % (11.5-14.5); WHITE BLOOD COUNT 5.7 X10'3 (4.5-11.0)
[2023-01-09] MEDS ORDERED: non-formulary drug (Lisinopril* 1 TAB) PO SCH (08:00)
[2023-01-09] MEDS ORDERED: FLUoxetine 10mg capsule PO SCH (08:00)
[2023-01-09] MEDS ORDERED: lisinopril 20mg tablet PO SCH ×3 (08:00→08:35)
[2023-01-09] MEDS ORDERED: atomoxetine 25mg capsule PO SCH (08:00)
[2023-01-09] MEDS ORDERED: verapamil SR 120mg (sust. release) tab PO SCH (08:00)
[2023-01-09] MEDS ORDERED: pantoprazole 40mg Tablet.DR PO SCH (08:00)
[2023-01-09 08:07] LABS: ALANINE AMINOTRANSFERASE 81 U/L (12-78); ALBUMIN 3.4 G/DL (3.4-5.0); ALBUMIN/GLOBULIN RATIO 0.9 (1.1-1.5); ALKALINE PHOSPHATASE 45 IU/L (46-116); ANION GAP 7 (8-16); ASPARTATE AMINO TRANSFERASE 94 U/L (10-37); BILIRUBIN,TOTAL 0.6 MG/DL (0.1-1.0); BLOOD UREA NITROGEN 8 MG/DL (7-18); BUN/CREATININE RATIO 12.5 (10.0-20.0); CALCIUM 9.8 MG/DL (8.5-10.1); CHLORIDE 102 MMOL/L (99-107); CREATININE 0.64 MG/DL (0.40-0.90); GLUCOSE 88 MG/DL (70-104); POTASSIUM 4.3 MMOL/L (3.5-5.1); SODIUM 138 MMOL/L (135-145); TOTAL CARBON DIOXIDE 29.1 MMOL/L (24-32); TOTAL PROTEIN 7.2 G/DL (6.4-8.2); eGFR > 90 ML/MIN
[2023-01-09 08:38] VITALS: BP_SYST 128
--- NOTE | 2023-01-09 09:25 | NUR ---
Pt resting in bed comfortable. Pt took mormning meds with no issues. Ate about 75% of breakfast tray and then laid back down to rest.
[2023-01-09] MEDS ORDERED: naltrexone 50mg tablet PO ONE (11:20)
[2023-01-09] MEDS ORDERED: VENL150C58 PO (11:27)
--- NOTE | 2023-01-09 11:32 | NUR ---
Pt sitting up at bedside talking to substance abuse coordinator. No distress noted at this time.
--- NOTE | 2023-01-09 11:41 | NUR ---
Received order for consult. Met with patient in regards to alcohol use and to see if patient was interested in resources for treatment options. Patient just got out of rehab. Patient states that she was receiving Naltrexone and was doing really well. Going to 5 meetings a week. Patient ran out of meds and relapsed. Patient does not have sponsor. I talked to Moe and he will restart her Naltrexone. I expressed the importance of getting a sponsor and going back to meetings. I gave patient a list of resources and has my card to call me with any questions.
--- NOTE | 2023-01-09 12:15 | NUR ---
Called [facility] to check status of naltrexone. They said they would send it as soon as they get it ready.
--- NOTE | 2023-01-09 14:26 | NUR ---
Pt resting in bed comfortable. IV taken out, canula was intact. Pt currently awaiting discharge. No distress noted.
[2023-01-09] MEDS ORDERED: NALT50TA PO (15:46)
[2023-01-10] MEDS ORDERED: naltrexone 50mg tablet PO SCH (08:00)
[2023-01-10] MEDS ORDERED: venlafaxine XR 75mg capsule (Q24H) PO SCH (08:00)
== END 2023-01-09 16:07 | disposition home or self-care (01) ==
LOC: ER 12:46
DX: F10.129 Alcohol abuse with intoxication, unspecified (principal); R45.851 Suicidal ideations; Z20.822 Contact with and (suspected) exposure to COVID-19; E87.1 Hypo-osmolality and hyponatremia; F41.9 Anxiety disorder, unspecified; F31.9 Bipolar disorder, unspecified; Z79.899 Other long term (current) drug therapy; Y90.9 Presence of alcohol in blood, level not specified
CPT/HCPCS: 36415; 80053; 80305; 80320; 81003; 84443; 85025; 87811; 93005; 96361; 96374; 96375; 99285; J2405; J3411; J3490; J7030; J7040

== ENCOUNTER 2023-01-24 16:54 | Emergency (ER) | payer BC ==
[~2023-01-24] VITALS: Ht 167.6 cm; Wt 59.1 kg
[~2023-01-24 16:54] MED LIST changes: +ATOM25CA6 PO; -ATOM80CA3 PO; +BENA20TA82 PO; +FLUO20CA39 PO; -LISI40TA13 PO; +NALT50TA PO; -ONDA8TAB13 PO; -TRAZ-256 PO; +VENL150C58 PO
[2023-01-24] MEDS ORDERED: LORazepam 2 mg/ml vial IV ONE (17:40)
[2023-01-24 20:59] LABS: BASOPHILS # (AUTO) 0.1 X10'3 (0-0.2); BASOPHILS % (AUTO) 0.3 % (0-1); EOSINOPHILS % (AUTO) 0.1 % (0-6); HEMATOCRIT 44.2 % (35.0-45.0); HEMOGLOBIN 15.2 g/dl (12.0-16.0); LYMPHOCYTES # (AUTO) 1.2 X10'3 (1.1-4.8); LYMPHOCYTES % (AUTO) 6.6 % (21-51); MEAN CORPUSCULAR HGB CONC 34.5 g/dL (33.0-36.5); MEAN CORPUSCULAR VOLUME 92.7 FL (78-98); MEAN PLATELET VOLUME 6.7 FL (7.4-10.4); MONOCYTES # (AUTO) 0.5 X10'3 (0-0.9); MONOCYTES % (AUTO) 2.8 % (2-12); NEUTROPHILS # (AUTO) 16.5 X10'3 (1.8-7.7); NEUTROPHILS % (AUTO) 90.2 % (42-75); PLATELET COUNT 408 X10'3 (140-440); RED BLOOD COUNT 4.77 X10'6 (4.20-5.60); RED CELL DISTRIBUTION WIDTH 14.9 % (11.5-14.5); WHITE BLOOD COUNT 18.2 X10'3 (4.5-11.0)
[2023-01-24 21:07] LABS: ALANINE AMINOTRANSFERASE 52 U/L (12-78); ALBUMIN 3.8 G/DL (3.4-5.0); ALBUMIN/GLOBULIN RATIO 0.8 (1.1-1.5); ALKALINE PHOSPHATASE 55 IU/L (46-116); ANION GAP 16 (8-16); ASPARTATE AMINO TRANSFERASE 48 U/L (10-37); BILIRUBIN,TOTAL 0.2 MG/DL (0.1-1.0); BLOOD UREA NITROGEN 18 MG/DL (7-18); BUN/CREATININE RATIO 21.4 (10.0-20.0); CALCIUM 9.6 MG/DL (8.5-10.1); CHLORIDE 89 MMOL/L (99-107); CREATININE 0.84 MG/DL (0.40-0.90); GLUCOSE 169 MG/DL (70-104); POTASSIUM 3.4 MMOL/L (3.5-5.1); SODIUM 136 MMOL/L (135-145); TOTAL CARBON DIOXIDE 31.4 MMOL/L (24-32); TOTAL PROTEIN 8.6 G/DL (6.4-8.2); eGFR 71 ML/MIN
[2023-01-24] MEDS ORDERED: normal saline 1000ML IV soln IVB ONE (21:20)
[2023-01-24 22:24] LABS: CLARITY,URINE SLIGHTLY CLOUDY (Clear); COLOR,URINE YELLOW (Yellow); GLUCOSE, URINE NEGATIVE (Neg); KETONES,URINE TRACE mg/dl (Neg); LEUKOCYTE ESTERASE ,URINE NEGATIVE (Neg); NITRITES, URINE NEGATIVE (Neg); OCCULT BLOOD,URINE MODERATE (Neg); PROTEIN,URINE >=300 mg/dl (Neg); UROBILINOGEN,URINE 0.2 E.U/dL (0.2-1.0)
[2023-01-24 22:25] LABS: UA COLLECTION TYPE STRAIGHT CATH
[2023-01-24 22:39] LABS: CELLULAR CAST 0-4 /LPF (NEGATIVE); FINE GRANULAR CAST 0-3 /LPF (NEGATIVE); MUCUS STRANDS MANY /LPF (Neg); WBC,URINE 0-4 /HPF (0-4)
[2023-01-24 22:40] LABS: BACTERIA,URINE FEW /HPF (Neg); RBC,URINE 0-2 /HPF (0-2); SQUAMOUS EPITHELIAL CELL,UR FEW /LPF (FEW); TRANSITIONAL EPI CELLS,URINE FEW /HPF
[2023-01-24 22:46] LABS: URINE AMPHETAMINE SCREEN NEGATIVE (Neg); URINE BARBITUATE SCREEN NEGATIVE (Neg); URINE BENZODIAZEPINES SCREEN NEGATIVE (Neg); URINE CANNABINOID SCREEN NEGATIVE (Neg); URINE COCAINE SCREEN NEGATIVE (Neg); URINE METHADONE SCREEN NEGATIVE (Neg); URINE OPIATE SCREEN NEGATIVE (Neg); URINE PHENCYCLIDINE SCREEN NEGATIVE (Neg)
--- NOTE | 2023-01-25 01:00 | NUR ---
This patient was brought from main ER. She continues to sleep. Additional evaluation will be done if patient awakens and is cooperative.
--- NOTE | 2023-01-25 03:00 | NUR ---
Per Dr. Doron coker to discontinue saline lock.
--- NOTE | 2023-01-25 03:14 | NUR ---
Saline lock (20 ga) DC'd with cath intact.
[2023-01-25] MEDS ORDERED: LORazepam 1 MG tablet PO ONE ×3 (03:25→15:00)
--- NOTE | 2023-01-25 03:31 | NUR ---
This patient is now awake and cooperative. Water given along with warm blankets. Patient denies S/I, H/I, or any hallucinations. Patient tells this documentation writer that she drank about a half gallon of wine and some whiskey too, prior to coming to the ED in a depressed state. Patient tells this documentation writer that her depression has resolved. Patient states she has anxiety and can't sleep.
--- NOTE | 2023-01-25 03:35 | NUR ---
Ativan 1mg and Melatonin 9 mg will be given PO.
[2023-01-25] MEDS: Melatonin 3mg tablet PO SCH (03:42)
--- NOTE | 2023-01-25 06:58 | NUR ---
Patient sleeping on her right side. No S/S of distress noted.
--- NOTE | 2023-01-25 08:50 | NUR ---
Patient ate her breakfast and is now sleeping.
[2023-01-25] MEDS ORDERED: ondansetron 4mg rapidly disintigrating tab PO ONE ×2 (10:20→15:00)
--- NOTE | 2023-01-25 10:30 | NUR ---
Patient requested Ativan. Patient started having emesis. Received orders for Ativan and Zofran. Patient resting comfortably at this time.
--- NOTE | 2023-01-25 12:45 | NUR ---
Patient's called and was informed that the [facility] has not seen patient, and there are no discharge orders.
[2023-01-25] MEDS ORDERED: dicyclomine 10 MG capsule PO ONE (14:55)
[2023-01-25] MEDS ORDERED: famotidine 20mg tablet PO ONE (14:55)
[2023-01-25] MEDS ORDERED: acetaminophen 325mg tablet PO ONE (14:55)
--- NOTE | 2023-01-25 16:48 | NUR ---
Patient up to the restroom.
--- NOTE | 2023-01-25 18:30 | NUR ---
Patient is awake and cooperative. She states she is depressed. She denies S/I, H/I, or any hallucinations. Patient has eaten her dinner. No distress. In direct view from nurses station.
[2023-01-25] MEDS ORDERED: NALT50TA PO (19:24)
[2023-01-25] MEDS ORDERED: VERA240T PO (19:37)
[2023-01-25] MEDS ORDERED: LISI40TA13 PO (19:41)
--- NOTE | 2023-01-25 19:41 | NUR ---
Patient is up to bathroom to void. She then returned to bed to sleep.
[2023-01-25] MEDS ORDERED: PANT40TA54 PO (19:42)
[2023-01-25] MEDS ORDERED: ATOM25CA6 PO (19:44)
[2023-01-25] MEDS ORDERED: BENA20TA82 PO (19:45)
[2023-01-25] MEDS ORDERED: VENL150T3 PO (19:49)
[2023-01-25] MEDS ORDERED: FLUO10CA28 PO (19:56)
--- NOTE | 2023-01-25 21:13 | NUR ---
Patient is sleeping quietly, no distress.
[2023-01-25] MEDS: LORazepam 1 MG tablet PO PRN (23:20)
--- NOTE | 2023-01-25 23:25 | NUR ---
Patient awoke, ambulated to the bathroom to void. Patient is slightly ataxic. Some trembling. Patient is cooperative and medication compliant. Some anxiety. Patient tells this typewriter aligner that she feels like she might be going through withdrawl. Ativan will be given.
--- NOTE | 2023-01-25 23:30 | NUR ---
Ativan 2mg given PO.
--- NOTE | 2023-01-26 01:41 | NUR ---
Patient awoke, asked about medications. Patient reassured that she is in a safe place. Am med's reviewed. Patient returned to sleep.
--- NOTE | 2023-01-26 03:00 | NUR ---
Patient sleeping quietly.
[2023-01-26] MEDS: Melatonin 3mg tablet PO SCH (03:25)
--- NOTE | 2023-01-26 04:13 | NUR ---
Patient is sleeping on her left side. Bed in low fowlers position.
--- NOTE | 2023-01-26 05:04 | NUR ---
Patient awoke, up to bathroom to void. Gait is less ataxic than earlier. Patient complains of nausea. This marketing underwriter will get a Zofran order. Additional Ativan will be given for mild tremors. Patient is cooperative and linear.
[2023-01-26] MEDS ORDERED: ondansetron 4mg rapidly disintigrating tab PO ONE (05:05)
[2023-01-26] MEDS: LORazepam 1 MG tablet PO PRN ×3 (05:20→13:43)
--- NOTE | 2023-01-26 06:57 | NUR ---
Patient is sleeping in bed. No S/S of distress noted.
[2023-01-26] MEDS ORDERED: pantoprazole 40mg Tablet.DR PO SCH (07:30)
[2023-01-26] MEDS ORDERED: atomoxetine 25mg capsule PO SCH (08:00)
[2023-01-26] MEDS ORDERED: verapamil SR 120mg (sust. release) tab PO SCH (08:00)
[2023-01-26] MEDS ORDERED: lisinopril 20mg tablet PO SCH (08:00)
[2023-01-26] MEDS ORDERED: FLUoxetine 10mg capsule PO SCH (08:00)
[2023-01-26] MEDS ORDERED: venlafaxine XR 75mg capsule (Q24H) PO SCH (08:00)
[2023-01-26] MEDS ORDERED: non-formulary drug (Lisinopril* 1 TAB) PO SCH (08:00)
--- NOTE | 2023-01-26 10:28 | NUR ---
[facility] evaluated patient for possible 5150. Alexandre states that we will watch her through the day and see how she does today. Patient is unstable on her feet, and needs standby assist. Patient ate breakfast and is sleeping at this time.
--- NOTE | 2023-01-26 10:43 | NUR ---
Patient states that she is feeling a little better today. [facility] here and evaluated patient. Patient ate breakfast and then medications were administered. Patient requested Ativan early, but was given at ordered time.
[2023-01-26] MEDS ORDERED: ONDA4TAB12 PO (11:42)
[2023-01-26] MEDS ORDERED: CHLO25CA10 PO (11:42)
--- NOTE | 2023-01-26 12:18 | NUR ---
Patient ate lunch, requesting Ativan, will administer when due in 1 hour. Patient will be discharged this afternoon.
--- NOTE | 2023-01-26 16:17 | NUR ---
Patient's is here to take her home. Registration is getting her valuables out of the safe.
[2023-01-26 16:25] VITALS: BP 170/104
[2023-01-26] MEDS ORDERED: Melatonin 3mg tablet PO SCH (21:00)
== END 2023-01-26 16:29 | disposition home or self-care (01) ==
LOC: ER 16:55
DX: R45.851 Suicidal ideations (principal); F10.129 Alcohol abuse with intoxication, unspecified; Y90.9 Presence of alcohol in blood, level not specified; F32.A Depression, unspecified; Z79.899 Other long term (current) drug therapy
CPT/HCPCS: 36415; 71045; 80053; 80305; 80320; 81001; 84443; 85025; 96361; 96374; 96376; 99285; J2060; J7030; 96375

== ENCOUNTER 2023-10-16 16:43 | Emergency (ER) | payer BC ==
[~2023-10-16] VITALS: Ht 167.6 cm; Wt 57.0 kg
[~2023-10-16 16:43] MED LIST changes: -ATOM25CA6 PO; +ATOM40CA7 PO; -BENA20TA82 PO; +FLUO-211 PO; -FLUO20CA39 PO; +LISI40TA13 PO; -NALT50TA PO; -PANT-47 PO; +PANT40TA54 PO; -VENL150C58 PO; +VENL150T3 PO; -VERA240T PO; +VERA240T92 PO
[2023-10-16 17:36] VITALS: TEMP 98.2
[2023-10-16] MEDS: HYDROmorphone 1 mg/ml syringe IV ONE ×2 (19:23→23:17)
[2023-10-16 19:53] LABS: BASOPHILS % (AUTO) 0.2 % (0-1); EOSINOPHILS # (AUTO) 0.5 X10'3 (0-0.9); EOSINOPHILS % (AUTO) 3.5 % (0-6); HEMATOCRIT 25.7 % (35.0-45.0); HEMOGLOBIN 8.7 g/dl (12.0-16.0); LYMPHOCYTES # (AUTO) 1.2 X10'3 (1.1-4.8); LYMPHOCYTES % (AUTO) 7.4 % (21-51); MEAN CORPUSCULAR HEMOGLOBIN 28.7 PG (27.0-31.0); MEAN CORPUSCULAR HGB CONC 33.8 g/dL (33.0-36.5); MEAN CORPUSCULAR VOLUME 84.7 FL (78-98); MEAN PLATELET VOLUME 6.3 FL (7.4-10.4); MONOCYTES # (AUTO) 1.3 X10'3 (0-0.9); MONOCYTES % (AUTO) 8.2 % (2-12); NEUTROPHILS # (AUTO) 12.6 X10'3 (1.8-7.7); NEUTROPHILS % (AUTO) 80.7 % (42-75); PLATELET COUNT 540 X10'3 (140-440); RED BLOOD COUNT 3.03 X10'6 (4.20-5.60); WHITE BLOOD COUNT 15.6 X10'3 (4.5-11.0)
[2023-10-16 20:13] LABS: ALBUMIN 2.5 G/DL (3.4-5.0); ANION GAP 13 (8-16); BLOOD UREA NITROGEN 37 MG/DL (7-18); BUN/CREATININE RATIO 33.3 (10.0-20.0); CALCIUM 9.7 MG/DL (8.5-10.1); CHLORIDE 94 MMOL/L (99-107); CREATININE 1.11 MG/DL (0.40-0.90); GLUCOSE 108 MG/DL (70-104); POTASSIUM 4.5 MMOL/L (3.5-5.1); SODIUM 123 MMOL/L (135-145); TOTAL CARBON DIOXIDE 16.4 MMOL/L (24-32); eCRCL 53 ML/MIN; eGFR 51 ML/MIN
[2023-10-16] MEDS ORDERED: iohexol 300mg/ml 100ml inj. ONE (20:46)
[2023-10-16 21:06] LABS: ALANINE AMINOTRANSFERASE 54 U/L (12-78); ALBUMIN/GLOBULIN RATIO 0.4 (1.1-1.5); ALKALINE PHOSPHATASE 106 IU/L (46-116); ASPARTATE AMINO TRANSFERASE 40 U/L (10-37); BILIRUBIN,DIRECT 0.4 MG/DL (0-0.3); BILIRUBIN,TOTAL 0.6 MG/DL (0.1-1.0); TOTAL PROTEIN 8.3 G/DL (6.4-8.2)
[2023-10-16 23:25] VITALS: BP 113/79; PULSE 91; RESP 16; O2SAT 98
== END 2023-10-16 23:27 ==
LOC: ER 16:44
DX: R10.9 Unspecified abdominal pain (principal); R14.0 Abdominal distension (gaseous); F41.8 Other specified anxiety disorders; F31.9 Bipolar disorder, unspecified; Z98.890 Other specified postprocedural states; Z72.89 Other problems related to lifestyle; Z79.899 Other long term (current) drug therapy; Z79.2 Long term (current) use of antibiotics
CPT/HCPCS: 36415; 71045; 74177; 80048; 80076; 83605; 84145; 85025; 87040; 96374; 96376; 99285; J1170; J3490; J7030; Q9967; A4398

== ENCOUNTER 2023-11-03 18:13 | Inpatient (IN) | payer BC ==
[~2023-11-03] VITALS: Ht 167.6 cm; Wt 51.8 kg
[2023-11-03] MEDS: HYDROmorphone 1 mg/ml syringe IV ONE ×2 (18:30→18:56)
[2023-11-03 19:02] LABS: BILIRUBIN,URINE NEGATIVE (Neg); CLARITY,URINE CLEAR (Clear); COLOR,URINE YELLOW (Yellow); GLUCOSE, URINE NEGATIVE (Neg); KETONES,URINE TRACE mg/dl (Neg); LEUKOCYTE ESTERASE ,URINE NEGATIVE (Neg); NITRITES, URINE NEGATIVE (Neg); OCCULT BLOOD,URINE NEGATIVE (Neg); PH,URINE 5.5 (4.8-8.0); PROTEIN,URINE TRACE mg/dl (Neg); UROBILINOGEN,URINE 0.2 E.U/dL (0.2-1.0)
[2023-11-03 19:21] LABS: UA COLLECTION TYPE CLN CATCH MIDSTREAM
[2023-11-03 19:28] LABS: HYALINE CASTS 0-3 /LPF (NEGATIVE)
[2023-11-03 19:31] LABS: SQUAMOUS EPITHELIAL CELL,UR NONE SEEN /LPF (FEW)
[2023-11-03 19:32] LABS: BACTERIA,URINE FEW /HPF (Neg); CAL OXALATE CRYSTALS FEW /HPF (NEGATIVE); RBC,URINE NONE SEEN /HPF (0-2)
[2023-11-03 19:58] LABS: APTT 30 SECONDS (22-32); BASOPHILS # (AUTO) 0.1 X10'3 (0-0.2); BASOPHILS % (AUTO) 0.4 % (0-1); EOSINOPHILS # (AUTO) 0.5 X10'3 (0-0.9); EOSINOPHILS % (AUTO) 4.2 % (0-6); HEMATOCRIT 30.4 % (35.0-45.0); HEMOGLOBIN 10.2 g/dl (12.0-16.0); LYMPHOCYTES # (AUTO) 1.3 X10'3 (1.1-4.8); LYMPHOCYTES % (AUTO) 10.4 % (21-51); MEAN CORPUSCULAR HEMOGLOBIN 28.3 PG (27.0-31.0); MEAN CORPUSCULAR HGB CONC 33.6 g/dL (33.0-36.5); MEAN CORPUSCULAR VOLUME 84.1 FL (78-98); MEAN PLATELET VOLUME 7.5 FL (7.4-10.4); MONOCYTES # (AUTO) 1.1 X10'3 (0-0.9); MONOCYTES % (AUTO) 8.8 % (2-12); NEUTROPHILS # (AUTO) 9.2 X10'3 (1.8-7.7); NEUTROPHILS % (AUTO) 76.2 % (42-75); PLATELET COUNT 538 X10'3 (140-440); PROTHROMBIN TIME 10.6 SECONDS (9.0-12.0); RED BLOOD COUNT 3.62 X10'6 (4.20-5.60); RED CELL DISTRIBUTION WIDTH 17.3 % (11.5-14.5); WHITE BLOOD COUNT 12.1 X10'3 (4.5-11.0)
[2023-11-03 20:01] LABS: ALANINE AMINOTRANSFERASE 56 U/L (12-78); ALBUMIN 2.3 G/DL (3.4-5.0); ALBUMIN/GLOBULIN RATIO 0.4 (1.1-1.5); ALKALINE PHOSPHATASE 84 IU/L (46-116); ANION GAP 9 (8-16); ASPARTATE AMINO TRANSFERASE 33 U/L (10-37); BILIRUBIN,TOTAL 0.5 MG/DL (0.1-1.0); BLOOD UREA NITROGEN 16 MG/DL (7-18); CALCIUM 9.7 MG/DL (8.5-10.1); CHLORIDE 98 MMOL/L (99-107); CREATININE 0.64 MG/DL (0.40-0.90); GLUCOSE 93 MG/DL (70-104); POTASSIUM 4.4 MMOL/L (3.5-5.1); SODIUM 131 MMOL/L (135-145); TOTAL CARBON DIOXIDE 23.8 MMOL/L (24-32); TOTAL PROTEIN 7.9 G/DL (6.4-8.2); eCRCL 91 ML/MIN; eGFR > 90 ML/MIN
[2023-11-03] MEDS ORDERED: potassium Cl 40MEQ/1/2NS 520ml 520 ML IV PRN (22:25)
[2023-11-03] MEDS ORDERED: magnesium Cl slow-release 64mg tablet PO PRN (22:25)
[2023-11-03] MEDS ORDERED: mag hydrox/Alum hydrox/simeth 30ml oral suspension PO PRN (22:25)
[2023-11-03] MEDS ORDERED: potassium Cl 20 mEq SR tablet PO PRN ×2 (22:25)
[2023-11-03] MEDS ORDERED: magnesium 2GM in 50ml NS 50 ML IV PRN (22:25)
[2023-11-03] MEDS ORDERED: acetaminophen 325mg tablet PO PRN (22:25)
[2023-11-03] MEDS ORDERED: magnesium hydroxide 30ml (MOM) UD suspension PO PRN (22:25)
[2023-11-03] MEDS ORDERED: magnesium 4gm in 100ml NS 100 ML IV PRN (22:25)
[2023-11-03] MEDS: normal saline 1000ml 1,000 ML IV SCH (22:35)
[2023-11-03] MEDS ORDERED: ketorolac trometh. 30mg/ml inj. IV ONE (23:00)
[2023-11-03] MEDS: ketorolac tromethamine 15mg/ml inj. IV ONE (23:19)
[2023-11-04 00:05] VITALS: BP 125/86; PULSE 78; RESP 16; TEMP 97.8; O2SAT 97
[2023-11-04] MEDS ORDERED: OXYcodone (OXYCONTIN) Ext Release 15 MG TAB.SR.12H PO ONE (00:50)
[2023-11-04] MEDS: morphine 4 MG/ML inj SYRINge IV ONE (01:29)
[2023-11-04] MEDS ORDERED: ketorolac trometh. 30mg/ml inj. IV ONE (04:15)
[2023-11-04] MEDS: ketorolac tromethamine 15mg/ml inj. IV ONE (04:24)
[2023-11-04] MEDS: diphenhydrAMINE 50 mg/ml inj IV ONE (04:24)
[2023-11-04 06:06] LABS: BASOPHILS % (AUTO) 0.3 % (0-1); EOSINOPHILS # (AUTO) 0.5 X10'3 (0-0.9); EOSINOPHILS % (AUTO) 4.9 % (0-6); HEMOGLOBIN 9.5 g/dl (12.0-16.0); LYMPHOCYTES # (AUTO) 1.3 X10'3 (1.1-4.8); LYMPHOCYTES % (AUTO) 11.8 % (21-51); MEAN CORPUSCULAR HEMOGLOBIN 28.6 PG (27.0-31.0); MEAN CORPUSCULAR VOLUME 84.1 FL (78-98); MEAN PLATELET VOLUME 7.3 FL (7.4-10.4); MONOCYTES # (AUTO) 0.9 X10'3 (0-0.9); MONOCYTES % (AUTO) 8.4 % (2-12); NEUTROPHILS # (AUTO) 8.1 X10'3 (1.8-7.7); NEUTROPHILS % (AUTO) 74.6 % (42-75); PLATELET COUNT 543 X10'3 (140-440); RED BLOOD COUNT 3.33 X10'6 (4.20-5.60); RED CELL DISTRIBUTION WIDTH 17.5 % (11.5-14.5); WHITE BLOOD COUNT 10.9 X10'3 (4.5-11.0)
[2023-11-04 06:17] LABS: APTT 30 SECONDS (22-32); PROTHROMBIN TIME 10.8 SECONDS (9.0-12.0)
[2023-11-04 06:23] LABS: ALANINE AMINOTRANSFERASE 56 U/L (12-78); ALBUMIN 2.2 G/DL (3.4-5.0); ALBUMIN/GLOBULIN RATIO 0.4 (1.1-1.5); ALKALINE PHOSPHATASE 83 IU/L (46-116); ANION GAP 7 (8-16); ASPARTATE AMINO TRANSFERASE 35 U/L (10-37); BILIRUBIN,TOTAL 0.6 MG/DL (0.1-1.0); BLOOD UREA NITROGEN 17 MG/DL (7-18); BUN/CREATININE RATIO 21.3 (10.0-20.0); CALCIUM 10.2 MG/DL (8.5-10.1); CHLORIDE 101 MMOL/L (99-107); GLUCOSE 104 MG/DL (70-104); MAGNESIUM 1.7 MG/DL (1.5-2.4); PHOSPHORUS 4.5 MG/DL (2.3-4.5); POTASSIUM 4.4 MMOL/L (3.5-5.1); SODIUM 133 MMOL/L (135-145); TOTAL CARBON DIOXIDE 24.7 MMOL/L (24-32); TOTAL PROTEIN 7.6 G/DL (6.4-8.2); eCRCL 73 ML/MIN; eGFR 75 ML/MIN
[2023-11-04 06:51] VITALS: BP 153/84; PULSE 78; RESP 18; TEMP 96.6; O2SAT 98
[2023-11-04] MEDS: K and/or MAG REPLACEMENT MC SCH (08:00)
[2023-11-04 08:10] VITALS: RESP 18; O2SAT 98
[2023-11-04] MEDS: docusate sod 100mg capsule PO SCH (08:49)
[2023-11-04] MEDS: pantoprazole 40 MG vial IV SCH (08:50)
[2023-11-04 10:00] VITALS: BP 141/78; PULSE 75; RESP 18; TEMP 97.8; O2SAT 98
[2023-11-04] MEDS: oxyCODONE SR 10mg (sust. release) tab PO SCH (10:38)
[2023-11-04] MEDS: diatr meglu/diatrizoate 30ml oral sol.-(3 dose) bottle PO SCH (21:54)
[2023-11-04] MEDS: HYDROmorphone 1 mg/ml syringe IV PRN (21:54)
[2023-11-04 22:00] VITALS: BP 145/94; PULSE 70; RESP 16; TEMP 97; O2SAT 100
[2023-11-04 23:05] VITALS: BP 142/86; PULSE 76; RESP 16; TEMP 97.2; O2SAT 98
[2023-11-05] VITALS (8 sets, daily range): BP systolic 146–186; BP diastolic 66–95; PULSE 66–87; RESP 14–22; TEMP 97.3–99.1; O2SAT 94–100
[2023-11-05 05:42] LABS: BASOPHILS % (AUTO) 0.5 % (0-1); EOSINOPHILS # (AUTO) 0.3 X10'3 (0-0.9); EOSINOPHILS % (AUTO) 3.3 % (0-6); HEMATOCRIT 29.3 % (35.0-45.0); LYMPHOCYTES # (AUTO) 1.2 X10'3 (1.1-4.8); MEAN CORPUSCULAR HEMOGLOBIN 28.8 PG (27.0-31.0); MEAN CORPUSCULAR HGB CONC 34.2 g/dL (33.0-36.5); MEAN CORPUSCULAR VOLUME 84.3 FL (78-98); MEAN PLATELET VOLUME 7.4 FL (7.4-10.4); MONOCYTES # (AUTO) 0.7 X10'3 (0-0.9); MONOCYTES % (AUTO) 7.8 % (2-12); NEUTROPHILS % (AUTO) 75.4 % (42-75); PLATELET COUNT 578 X10'3 (140-440); RED BLOOD COUNT 3.48 X10'6 (4.20-5.60); RED CELL DISTRIBUTION WIDTH 17.3 % (11.5-14.5); WHITE BLOOD COUNT 9.2 X10'3 (4.5-11.0)
[2023-11-05 05:47] LABS: APTT 31 SECONDS (22-32); PROTHROMBIN TIME 10.9 SECONDS (9.0-12.0)
[2023-11-05 05:52] LABS: ALANINE AMINOTRANSFERASE 83 U/L (12-78); ALBUMIN 2.2 G/DL (3.4-5.0); ALBUMIN/GLOBULIN RATIO 0.4 (1.1-1.5); ALKALINE PHOSPHATASE 88 IU/L (46-116); ANION GAP 10 (8-16); ASPARTATE AMINO TRANSFERASE 63 U/L (10-37); BILIRUBIN,TOTAL 0.5 MG/DL (0.1-1.0); BLOOD UREA NITROGEN 15 MG/DL (7-18); BUN/CREATININE RATIO 19.5 (10.0-20.0); CALCIUM 9.9 MG/DL (8.5-10.1); CHLORIDE 101 MMOL/L (99-107); CREATININE 0.77 MG/DL (0.40-0.90); GLUCOSE 90 MG/DL (70-104); MAGNESIUM 1.6 MG/DL (1.5-2.4); PHOSPHORUS 4.5 MG/DL (2.3-4.5); POTASSIUM 4.2 MMOL/L (3.5-5.1); SODIUM 133 MMOL/L (135-145); TOTAL CARBON DIOXIDE 22.1 MMOL/L (24-32); TOTAL PROTEIN 7.4 G/DL (6.4-8.2); eCRCL 76 ML/MIN; eGFR 78 ML/MIN
[2023-11-05] MEDS ORDERED: iohexol 300mg/ml 100ml inj. ONE (10:33)
[2023-11-05] MEDS: HYDROcodone/acetaminophen 10/325mg tab PO ONE (12:05)
[2023-11-05] MEDS ORDERED: LISI-644 PO (14:13)
[2023-11-05] MEDS ORDERED: diatr meglu/diatrizoate 30ml oral sol.-(3 dose) bottle ONE (15:51)
[2023-11-05] MEDS: HYDROmorphone 1 mg/ml syringe IV PRN (16:00)
[2023-11-05] MEDS: lisinopril 20mg tablet PO SCH (20:02)
[2023-11-05] MEDS: HYDROmorphone 1 mg/ml syringe IV ONE (23:22)
[2023-11-06] MEDS: ketorolac tromethamine 15mg/ml inj. IV ONE (05:40)
[2023-11-06 06:30] VITALS: BP 155/96; PULSE 71; RESP 18; TEMP 98.3; O2SAT 99
[2023-11-06 06:31] LABS: LYMPHOCYTES # (AUTO) 1.2 X10'3 (1.1-4.8); MEAN CORPUSCULAR VOLUME 83.4 FL (78-98); MEAN PLATELET VOLUME 7.5 FL (7.4-10.4); WHITE BLOOD COUNT 10.1 X10'3 (4.5-11.0)
[2023-11-06 06:35] LABS: APTT 31 SECONDS (22-32)
[2023-11-06 06:37] LABS: BASOPHILS # (AUTO) 0.1 X10'3 (0-0.2); BASOPHILS % (AUTO) 1.3 % (0-1); EOSINOPHILS # (AUTO) 0.4 X10'3 (0-0.9); EOSINOPHILS % (AUTO) 3.6 % (0-6); HEMATOCRIT 27.9 % (35.0-45.0); HEMOGLOBIN 9.7 g/dl (12.0-16.0); MEAN CORPUSCULAR HEMOGLOBIN 28.9 PG (27.0-31.0); MEAN CORPUSCULAR HGB CONC 34.7 g/dL (33.0-36.5); MONOCYTES # (AUTO) 0.6 X10'3 (0-0.9); MONOCYTES % (AUTO) 5.8 % (2-12); NEUTROPHILS # (AUTO) 7.8 X10'3 (1.8-7.7); NEUTROPHILS % (AUTO) 77.3 % (42-75); PLATELET COUNT 589 X10'3 (140-440); RED BLOOD COUNT 3.35 X10'6 (4.20-5.60); RED CELL DISTRIBUTION WIDTH 17.1 % (11.5-14.5)
[2023-11-06 06:52] LABS: ALANINE AMINOTRANSFERASE 65 U/L (12-78); ALBUMIN 2.2 G/DL (3.4-5.0); ALBUMIN/GLOBULIN RATIO 0.4 (1.1-1.5); ALKALINE PHOSPHATASE 85 IU/L (46-116); ANION GAP 10 (8-16); ASPARTATE AMINO TRANSFERASE 31 U/L (10-37); BILIRUBIN,TOTAL 0.5 MG/DL (0.1-1.0); BLOOD UREA NITROGEN 10 MG/DL (7-18); BUN/CREATININE RATIO 14.9 (10.0-20.0); CHLORIDE 100 MMOL/L (99-107); CREATININE 0.67 MG/DL (0.40-0.90); GLUCOSE 100 MG/DL (70-104); MAGNESIUM 1.3 MG/DL (1.5-2.4); PHOSPHORUS 3.9 MG/DL (2.3-4.5); POTASSIUM 3.9 MMOL/L (3.5-5.1); SODIUM 129 MMOL/L (135-145); TOTAL CARBON DIOXIDE 19.1 MMOL/L (24-32); TOTAL PROTEIN 7.4 G/DL (6.4-8.2); eCRCL 87 ML/MIN; eGFR > 90 ML/MIN
[2023-11-06] MEDS: pantoprazole 40mg Tablet.DR PO SCH (07:08)
[2023-11-06] MEDS: venlafaxine 25mg tablet PO SCH (07:08)
[2023-11-06] MEDS: lisinopril 20mg tablet PO SCH (07:09)
[2023-11-06 08:00] VITALS: RESP 18; O2SAT 99
[2023-11-06] MEDS ORDERED: ALPRAZolam 0.25mg tablet PO PRN (10:30)
[2023-11-06] MEDS: HYDROcodone/acetaminophen 10/325mg tab PO PRN (10:34)
[2023-11-06] MEDS: ondansetron/PF 4mg/2ml inj IV PRN (11:24)
[2023-11-06 17:57] VITALS: BP 159/98; PULSE 66; RESP 16; TEMP 98; O2SAT 98
[2023-11-06] MEDS: lactose-reduced food (Ensure Enlive) - 237ml bottle PO SCH (18:01)
[2023-11-06 20:00] VITALS: RESP 16; O2SAT 98
[2023-11-06 22:00] VITALS: BP 134/86; PULSE 74; RESP 16; TEMP 98.4; O2SAT 97
[2023-11-07 06:00] VITALS: BP 141/90; PULSE 73; RESP 15; TEMP 98; O2SAT 97
[2023-11-07 06:02] LABS: HEMOGLOBIN 10.8 g/dl (12.0-16.0); LYMPHOCYTES # (AUTO) 1.1 X10'3 (1.1-4.8); LYMPHOCYTES % (AUTO) 9.9 % (21-51); MEAN CORPUSCULAR HGB CONC 33.7 g/dL (33.0-36.5); WHITE BLOOD COUNT 11.6 X10'3 (4.5-11.0)
[2023-11-07 06:03] LABS: BASOPHILS # (AUTO) 0.1 X10'3 (0-0.2); BASOPHILS % (AUTO) 0.5 % (0-1); EOSINOPHILS # (AUTO) 0.4 X10'3 (0-0.9); MEAN CORPUSCULAR VOLUME 83.2 FL (78-98); MEAN PLATELET VOLUME 7.2 FL (7.4-10.4); MONOCYTES # (AUTO) 0.8 X10'3 (0-0.9); MONOCYTES % (AUTO) 6.8 % (2-12); NEUTROPHILS # (AUTO) 9.2 X10'3 (1.8-7.7); NEUTROPHILS % (AUTO) 79.8 % (42-75); PLATELET COUNT 710 X10'3 (140-440); RED BLOOD COUNT 3.84 X10'6 (4.20-5.60); RED CELL DISTRIBUTION WIDTH 16.6 % (11.5-14.5)
[2023-11-07 06:12] LABS: PROTHROMBIN TIME 11.1 SECONDS (9.0-12.0)
[2023-11-07 06:20] LABS: ALANINE AMINOTRANSFERASE 65 U/L (12-78); ALBUMIN 2.6 G/DL (3.4-5.0); ALBUMIN/GLOBULIN RATIO 0.5 (1.1-1.5); ALKALINE PHOSPHATASE 85 IU/L (46-116); ANION GAP 10 (8-16); ASPARTATE AMINO TRANSFERASE 29 U/L (10-37); BILIRUBIN,TOTAL 0.5 MG/DL (0.1-1.0); BLOOD UREA NITROGEN 10 MG/DL (7-18); BUN/CREATININE RATIO 12.2 (10.0-20.0); CALCIUM 10.7 MG/DL (8.5-10.1); CHLORIDE 97 MMOL/L (99-107); CREATININE 0.82 MG/DL (0.40-0.90); GLUCOSE 99 MG/DL (70-104); MAGNESIUM 1.1 MG/DL (1.5-2.4); PHOSPHORUS 4.9 MG/DL (2.3-4.5); POTASSIUM 3.9 MMOL/L (3.5-5.1); SODIUM 128 MMOL/L (135-145); TOTAL CARBON DIOXIDE 21.2 MMOL/L (24-32); TOTAL PROTEIN 8.3 G/DL (6.4-8.2); eCRCL 71 ML/MIN; eGFR 73 ML/MIN
[2023-11-07 08:00] VITALS: RESP 16
[2023-11-07] MEDS: lisinopril 20mg tablet PO SCH (08:10)
[2023-11-07] MEDS ORDERED: potassium Cl 20 mEq SR tablet PO PRN ×2 (09:55)
[2023-11-07] MEDS ORDERED: potassium Cl 40MEQ/1/2NS 520ml 520 ML IV PRN (09:55)
[2023-11-07] MEDS ORDERED: magnesium Cl slow-release 64mg tablet PO PRN (09:55)
[2023-11-07] MEDS ORDERED: magnesium 4gm in 100ml NS 100 ML IV PRN (09:55)
[2023-11-07 10:00] VITALS: BP 163/96; PULSE 76; RESP 17; TEMP 97.9; O2SAT 98
[2023-11-07] MEDS: magnesium 2GM in 50ml NS 50 ML IV PRN (11:10)
[2023-11-07 18:00] VITALS: BP 146/98; PULSE 79; RESP 16; TEMP 98.8; O2SAT 98
[2023-11-07] MEDS: enoxaparin 40mg/0.4ml syringe SUBCUT SCH (19:36)
[2023-11-07] MEDS: metoclopramide 5 mg/ml inj IV SCH (19:37)
[2023-11-07 20:00] VITALS: RESP 20; O2SAT 98
[2023-11-07] MEDS: K and/or MAG REPLACEMENT MC SCH (20:00)
[2023-11-07 22:00] VITALS: BP 144/92; PULSE 92; RESP 20; TEMP 98.7; O2SAT 98
[2023-11-07] MEDS: gabapentin 400mg capsule PO SCH (23:07)
[2023-11-08 05:40] LABS: PROTHROMBIN TIME 10.9 SECONDS (9.0-12.0)
[2023-11-08 05:56] LABS: ALANINE AMINOTRANSFERASE 64 U/L (12-78); ALBUMIN/GLOBULIN RATIO 0.5 (1.1-1.5); ALKALINE PHOSPHATASE 97 IU/L (46-116); ANION GAP 13 (8-16); ASPARTATE AMINO TRANSFERASE 23 U/L (10-37); BILIRUBIN,TOTAL 0.5 MG/DL (0.1-1.0); BLOOD UREA NITROGEN 14 MG/DL (7-18); BUN/CREATININE RATIO 12.3 (10.0-20.0); CALCIUM 10.9 MG/DL (8.5-10.1); CHLORIDE 95 MMOL/L (99-107); CREATININE 1.14 MG/DL (0.40-0.90); GLUCOSE 110 MG/DL (70-104); MAGNESIUM 1.5 MG/DL (1.5-2.4); PHOSPHORUS 5.2 MG/DL (2.3-4.5); SODIUM 126 MMOL/L (135-145); TOTAL CARBON DIOXIDE 18.5 MMOL/L (24-32); TOTAL PROTEIN 9.2 G/DL (6.4-8.2); eCRCL 51 ML/MIN; eGFR 50 ML/MIN
[2023-11-08 06:00] LABS: EOSINOPHILS # (AUTO) 0.2 X10'3 (0-0.9); HEMOGLOBIN 12.2 g/dl (12.0-16.0); MONOCYTES # (AUTO) 0.8 X10'3 (0-0.9); NEUTROPHILS # (AUTO) 13.3 X10'3 (1.8-7.7)
[2023-11-08 06:04] LABS: BASOPHILS % (AUTO) 0.2 % (0-1); HEMATOCRIT 35.6 % (35.0-45.0); LYMPHOCYTES # (AUTO) 1.1 X10'3 (1.1-4.8); LYMPHOCYTES % (AUTO) 7.4 % (21-51); MEAN CORPUSCULAR HEMOGLOBIN 28.4 PG (27.0-31.0); MEAN CORPUSCULAR HGB CONC 34.4 g/dL (33.0-36.5); MEAN CORPUSCULAR VOLUME 82.7 FL (78-98); MEAN PLATELET VOLUME 7.3 FL (7.4-10.4); NEUTROPHILS % (AUTO) 86.4 % (42-75); PLATELET COUNT 790 X10'3 (140-440); RED BLOOD COUNT 4.31 X10'6 (4.20-5.60); RED CELL DISTRIBUTION WIDTH 16.8 % (11.5-14.5); WHITE BLOOD COUNT 15.4 X10'3 (4.5-11.0)
[2023-11-08 06:59] VITALS: BP 117/86; PULSE 98; RESP 18; TEMP 97.5; O2SAT 99
[2023-11-08 08:00] VITALS: RESP 18; O2SAT 99
[2023-11-08 10:00] VITALS: BP 111/76; PULSE 105; RESP 16; TEMP 97.7; O2SAT 99
[2023-11-08] MEDS ORDERED: ALPRAZolam 0.25mg tablet JT PRN (13:52)
[2023-11-08] MEDS ORDERED: acetaminophen 325mg/10.15ml oral unit dose solution JT PRN (13:52)
[2023-11-08] MEDS ORDERED: magnesium hydroxide 30ml (MOM) UD suspension JT PRN (13:54)
[2023-11-08] MEDS ORDERED: mag hydrox/Alum hydrox/simeth 30ml oral suspension JT PRN (13:54)
[2023-11-08] MEDS ORDERED: POTASSIUM BICARB 20meq eff tab 20 MEQ TABLET.EFF JT PRN ×2 (13:55)
[2023-11-08] MEDS: gabapentin 400mg capsule JT SCH (16:21)
[2023-11-08 18:00] VITALS: BP 93/62; PULSE 109; RESP 14; TEMP 98.8; O2SAT 96
[2023-11-08] MEDS: normal saline 1000ml 1,000 ML IV ONE (19:04)
[2023-11-08] MEDS: normal saline 1000ml 1,000 ML IV SCH (19:05)
[2023-11-08 20:00] VITALS: RESP 14; O2SAT 96
[2023-11-08] MEDS: docusate sodium 100mg/10ml UD cup JT SCH (20:00)
[2023-11-08] MEDS: lisinopril 20mg tablet JT SCH (20:00)
[2023-11-08] MEDS: venlafaxine 25mg tablet JT SCH (20:37)
[2023-11-08 22:00] VITALS: BP 108/75; PULSE 100; RESP 18; TEMP 97.9; O2SAT 97
[2023-11-09 06:51] VITALS: BP 105/72; PULSE 94; RESP 19; TEMP 98.1; O2SAT 96
[2023-11-09] MEDS: lansoprazole 15mg solutab JT SCH (08:04)
[2023-11-09 09:00] VITALS: RESP 16; O2SAT 98
[2023-11-09 11:00] VITALS: BP 121/84; PULSE 91; RESP 15; TEMP 97.7; O2SAT 98
[2023-11-09 13:09] LABS: ALBUMIN 2.6 G/DL (3.4-5.0); ANION GAP 10 (8-16); BLOOD UREA NITROGEN 30 MG/DL (7-18); BUN/CREATININE RATIO 13.8 (10.0-20.0); CALCIUM 9.7 MG/DL (8.5-10.1); CHLORIDE 93 MMOL/L (99-107); CREATININE 2.17 MG/DL (0.40-0.90); GLUCOSE 124 MG/DL (70-104); POTASSIUM 4.5 MMOL/L (3.5-5.1); TOTAL CARBON DIOXIDE 15.3 MMOL/L (24-32); eCRCL 27 ML/MIN; eGFR 24 ML/MIN
[2023-11-09 13:13] LABS: SODIUM 118 MMOL/L (135-145)
[2023-11-09] MEDS: normal saline 1000ml 1,000 ML IV ONE (13:40)
[2023-11-09 14:11] LABS: UA EOSINOPHILS NO EOS /HPF
[2023-11-09] MEDS ORDERED: sodium chloride 1gm tablet PO PRN (14:35)
[2023-11-09] MEDS: sodium chloride 1gm tablet PO ONE (15:18)
[2023-11-09 18:00] VITALS: BP 128/80; PULSE 75; RESP 15; TEMP 97.8; O2SAT 98
[2023-11-09 20:00] VITALS: RESP 15; O2SAT 98
[2023-11-09 22:14] VITALS: BP 129/88; PULSE 92; RESP 20; TEMP 98.5; O2SAT 99
[2023-11-10 06:28] VITALS: BP 113/77; PULSE 89; RESP 20; TEMP 97.8; O2SAT 99
[2023-11-10] MEDS: ringers solution, lacted 1,000 ML IV ONE (07:35)
[2023-11-10 08:32] LABS: BASOPHILS # (AUTO) 0.1 X10'3 (0-0.2); BASOPHILS % (AUTO) 0.3 % (0-1); EOSINOPHILS # (AUTO) 0.1 X10'3 (0-0.9); EOSINOPHILS % (AUTO) 0.8 % (0-6); HEMATOCRIT 29.4 % (35.0-45.0); LYMPHOCYTES # (AUTO) 1.2 X10'3 (1.1-4.8); LYMPHOCYTES % (AUTO) 7.5 % (21-51); MEAN CORPUSCULAR HEMOGLOBIN 28.7 PG (27.0-31.0); MEAN CORPUSCULAR HGB CONC 33.8 g/dL (33.0-36.5); MEAN CORPUSCULAR VOLUME 84.8 FL (78-98); MONOCYTES # (AUTO) 0.8 X10'3 (0-0.9); MONOCYTES % (AUTO) 4.8 % (2-12); NEUTROPHILS # (AUTO) 13.7 X10'3 (1.8-7.7); NEUTROPHILS % (AUTO) 86.6 % (42-75); PLATELET COUNT 485 X10'3 (140-440); RED BLOOD COUNT 3.47 X10'6 (4.20-5.60); RED CELL DISTRIBUTION WIDTH 16.9 % (11.5-14.5); WHITE BLOOD COUNT 15.8 X10'3 (4.5-11.0)
[2023-11-10 09:30] VITALS: RESP 18; O2SAT 97
[2023-11-10 10:00] VITALS: BP 159/91; PULSE 102; RESP 20; TEMP 97.6; O2SAT 100
[2023-11-10 11:01] LABS: ALBUMIN 2.4 G/DL (3.4-5.0); ANION GAP 11 (8-16); BLOOD UREA NITROGEN 21 MG/DL (7-18); CALCIUM 9.4 MG/DL (8.5-10.1); CHLORIDE 104 MMOL/L (99-107); CREATININE 0.84 MG/DL (0.40-0.90); GLUCOSE 90 MG/DL (70-104); POTASSIUM 4.8 MMOL/L (3.5-5.1); PREALBUMIN 21.1 MG/DL (19-36); SODIUM 127 MMOL/L (135-145); eCRCL 69 ML/MIN; eGFR 71 ML/MIN
[2023-11-10 11:09] LABS: TOTAL CARBON DIOXIDE 12.5 MMOL/L (24-32)
[2023-11-10] MEDS ORDERED: gabapentin 400mg capsule JT SCH (12:03)
[2023-11-10] MEDS: HYDROmorphone 1 mg/ml syringe IV PRN (17:29)
[2023-11-10 18:00] VITALS: BP 128/80; PULSE 90; RESP 20; TEMP 98.5; O2SAT 99
[2023-11-10 20:00] VITALS: RESP 20; O2SAT 99
[2023-11-10] MEDS: enoxaparin 30mg/0.3ml syringe SUBCUT SCH (20:00)
[2023-11-10 22:00] VITALS: BP 151/99; PULSE 99; RESP 20; TEMP 97.5; O2SAT 95
[2023-11-11 06:00] VITALS: BP 139/97; PULSE 81; RESP 15; TEMP 97.5; O2SAT 97
[2023-11-11 06:10] LABS: BASOPHILS # (AUTO) 0.1 X10'3 (0-0.2); BASOPHILS % (AUTO) 0.4 % (0-1); EOSINOPHILS # (AUTO) 0.2 X10'3 (0-0.9); EOSINOPHILS % (AUTO) 1.4 % (0-6); HEMATOCRIT 29.5 % (35.0-45.0); HEMOGLOBIN 9.8 g/dl (12.0-16.0); LYMPHOCYTES # (AUTO) 1.3 X10'3 (1.1-4.8); LYMPHOCYTES % (AUTO) 7.3 % (21-51); MEAN CORPUSCULAR HEMOGLOBIN 28.2 PG (27.0-31.0); MEAN CORPUSCULAR HGB CONC 33.4 g/dL (33.0-36.5); MEAN CORPUSCULAR VOLUME 84.3 FL (78-98); MEAN PLATELET VOLUME 6.9 FL (7.4-10.4); MONOCYTES # (AUTO) 0.8 X10'3 (0-0.9); MONOCYTES % (AUTO) 4.7 % (2-12); NEUTROPHILS # (AUTO) 15.2 X10'3 (1.8-7.7); NEUTROPHILS % (AUTO) 86.2 % (42-75); PLATELET COUNT 582 X10'3 (140-440); RED BLOOD COUNT 3.49 X10'6 (4.20-5.60); RED CELL DISTRIBUTION WIDTH 17.3 % (11.5-14.5); WHITE BLOOD COUNT 17.6 X10'3 (4.5-11.0)
[2023-11-11 06:29] LABS: ALANINE AMINOTRANSFERASE 33 U/L (12-78); ALBUMIN 2.4 G/DL (3.4-5.0); ALBUMIN/GLOBULIN RATIO 0.5 (1.1-1.5); ALKALINE PHOSPHATASE 74 IU/L (46-116); ANION GAP 9 (8-16); ASPARTATE AMINO TRANSFERASE 19 U/L (10-37); BILIRUBIN,TOTAL 0.3 MG/DL (0.1-1.0); BLOOD UREA NITROGEN 15 MG/DL (7-18); BUN/CREATININE RATIO 20.5 (10.0-20.0); CALCIUM 9.2 MG/DL (8.5-10.1); CHLORIDE 104 MMOL/L (99-107); CREATININE 0.73 MG/DL (0.40-0.90); GLUCOSE 92 MG/DL (70-104); POTASSIUM 4.5 MMOL/L (3.5-5.1); SODIUM 128 MMOL/L (135-145); TOTAL CARBON DIOXIDE 15.2 MMOL/L (24-32); TOTAL PROTEIN 7.3 G/DL (6.4-8.2); eCRCL 75 ML/MIN; eGFR 83 ML/MIN
[2023-11-11] MEDS ORDERED: ALPRAZolam 0.25mg tablet PO PRN (07:06)
[2023-11-11] MEDS ORDERED: acetaminophen 325mg tablet PO PRN (07:06)
[2023-11-11] MEDS ORDERED: lansoprazole 15mg solutab PO SCH (07:07)
[2023-11-11] MEDS: lisinopril 20mg tablet PO SCH (07:58)
[2023-11-11] MEDS: pantoprazole 40mg Tablet.DR PO SCH (07:58)
[2023-11-11] MEDS: gabapentin 400mg capsule PO SCH (07:59)
[2023-11-11] MEDS: docusate sod 100mg capsule PO SCH (07:59)
[2023-11-11] MEDS: sodium chloride 1gm tablet PO SCH (07:59)
[2023-11-11] MEDS: venlafaxine 25mg tablet PO SCH (07:59)
[2023-11-11] MEDS: ALPRAZolam 0.25mg tablet PO PRN (11:22)
[2023-11-11] MEDS: oxyCODONE/APAP 10/325mg tablet PO PRN (17:09)
[2023-11-11 18:00] VITALS: BP 158/103; PULSE 87; RESP 23; TEMP 97.7; O2SAT 98
[2023-11-11 20:00] VITALS: RESP 20; O2SAT 95
[2023-11-11] MEDS: HYDROmorphone 1 mg/ml syringe IV PRN (21:04)
[2023-11-11 22:00] VITALS: BP 158/88; PULSE 95; RESP 24; TEMP 97.9; O2SAT 98
[2023-11-12] VITALS (7 sets, daily range): BP systolic 134–163; BP diastolic 80–102; PULSE 88–98; RESP 14–20; TEMP 97.1–98.1; O2SAT 96–100
[2023-11-12 06:09] LABS: MEAN PLATELET VOLUME 6.9 FL (7.4-10.4)
[2023-11-12 06:11] LABS: BASOPHILS # (AUTO) 0.1 X10'3 (0-0.2); BASOPHILS % (AUTO) 0.4 % (0-1); EOSINOPHILS # (AUTO) 0.2 X10'3 (0-0.9); EOSINOPHILS % (AUTO) 0.8 % (0-6); HEMATOCRIT 30.5 % (35.0-45.0); LYMPHOCYTES # (AUTO) 1.7 X10'3 (1.1-4.8); LYMPHOCYTES % (AUTO) 8.2 % (21-51); MEAN CORPUSCULAR HGB CONC 32.9 g/dL (33.0-36.5); NEUTROPHILS # (AUTO) 17.8 X10'3 (1.8-7.7); NEUTROPHILS % (AUTO) 85.6 % (42-75); PLATELET COUNT 560 X10'3 (140-440); RED BLOOD COUNT 3.58 X10'6 (4.20-5.60); RED CELL DISTRIBUTION WIDTH 16.8 % (11.5-14.5); WHITE BLOOD COUNT 20.8 X10'3 (4.5-11.0)
[2023-11-12] MEDS: diatr meglu/diatrizoate 30ml oral sol.-(3 dose) bottle PO SCH (21:00)
[2023-11-13 06:15] LABS: BASOPHILS # (AUTO) 0.1 X10'3 (0-0.2); BASOPHILS % (AUTO) 0.3 % (0-1); EOSINOPHILS # (AUTO) 0.2 X10'3 (0-0.9); EOSINOPHILS % (AUTO) 1.3 % (0-6); HEMATOCRIT 29.2 % (35.0-45.0); HEMOGLOBIN 9.7 g/dl (12.0-16.0); LYMPHOCYTES # (AUTO) 1.3 X10'3 (1.1-4.8); LYMPHOCYTES % (AUTO) 7.7 % (21-51); MEAN CORPUSCULAR HEMOGLOBIN 27.8 PG (27.0-31.0); MEAN CORPUSCULAR HGB CONC 33.1 g/dL (33.0-36.5); MEAN CORPUSCULAR VOLUME 84.1 FL (78-98); MEAN PLATELET VOLUME 7.1 FL (7.4-10.4); MONOCYTES # (AUTO) 1.2 X10'3 (0-0.9); MONOCYTES % (AUTO) 7.4 % (2-12); NEUTROPHILS % (AUTO) 83.3 % (42-75); PLATELET COUNT 463 X10'3 (140-440); RED BLOOD COUNT 3.47 X10'6 (4.20-5.60); RED CELL DISTRIBUTION WIDTH 16.9 % (11.5-14.5); WHITE BLOOD COUNT 16.8 X10'3 (4.5-11.0)
[2023-11-13 07:00] VITALS: BP 133/93; PULSE 105; RESP 18; TEMP 98.3; O2SAT 97
[2023-11-13 10:00] VITALS: BP 135/93; PULSE 90; RESP 18; TEMP 98.1; O2SAT 98
[2023-11-13] MEDS: oxyCODONE/APAP 10/325mg tablet PO PRN (10:14)
[2023-11-13] MEDS ORDERED: iohexol 300mg/ml 100ml inj. ONE (10:51)
[2023-11-13] MEDS: sodium bicarbonate 1meq/ml inj 150 ML in dextrose 5%-water 1,000 ML IV SCH (12:37)
[2023-11-13 17:00] LABS: BILIRUBIN,URINE NEGATIVE (Neg); CLARITY,URINE SLIGHTLY CLOUDY (Clear); COLOR,URINE YELLOW (Yellow); GLUCOSE, URINE NEGATIVE (Neg); KETONES,URINE NEGATIVE (Neg); LEUKOCYTE ESTERASE ,URINE SMALL (Neg); NITRITES, URINE NEGATIVE (Neg); OCCULT BLOOD,URINE TRACE-INTACT (Neg); PH,URINE 5.5 (4.8-8.0); PROTEIN,URINE NEGATIVE (Neg); UROBILINOGEN,URINE 0.2 E.U/dL (0.2-1.0)
[2023-11-13 17:01] LABS: UA COLLECTION TYPE VOIDED
[2023-11-13 17:19] LABS: BACTERIA,URINE 4+ /HPF (Neg); SQUAMOUS EPITHELIAL CELL,UR FEW /LPF (FEW); WBC,URINE TNTC /HPF (0-4)
[2023-11-13 17:20] LABS: RBC,URINE 0-2 /HPF (0-2); WBC CLUMPS,URINE MODERATE /HPF (NEGATIVE)
[2023-11-13 18:00] VITALS: BP 128/78; PULSE 87; RESP 17; TEMP 97.9; O2SAT 97
[2023-11-13 20:00] VITALS: RESP 16; O2SAT 97
[2023-11-13 22:00] VITALS: BP 118/68; PULSE 87; RESP 14; TEMP 98.3; O2SAT 96
[2023-11-14 06:00] VITALS: BP 108/71; PULSE 78; RESP 18; TEMP 97.6; O2SAT 95
[2023-11-14 06:15] LABS: BASOPHILS % (AUTO) 0.3 % (0-1); EOSINOPHILS # (AUTO) 0.3 X10'3 (0-0.9); EOSINOPHILS % (AUTO) 1.5 % (0-6); HEMATOCRIT 27.9 % (35.0-45.0); HEMOGLOBIN 9.7 g/dl (12.0-16.0); LYMPHOCYTES # (AUTO) 1.6 X10'3 (1.1-4.8); LYMPHOCYTES % (AUTO) 9.5 % (21-51); MEAN CORPUSCULAR HEMOGLOBIN 29.2 PG (27.0-31.0); MEAN CORPUSCULAR HGB CONC 34.9 g/dL (33.0-36.5); MEAN CORPUSCULAR VOLUME 83.5 FL (78-98); MEAN PLATELET VOLUME 7.2 FL (7.4-10.4); MONOCYTES # (AUTO) 1.3 X10'3 (0-0.9); MONOCYTES % (AUTO) 7.8 % (2-12); NEUTROPHILS # (AUTO) 13.3 X10'3 (1.8-7.7); NEUTROPHILS % (AUTO) 80.9 % (42-75); PLATELET COUNT 439 X10'3 (140-440); RED BLOOD COUNT 3.34 X10'6 (4.20-5.60); RED CELL DISTRIBUTION WIDTH 16.6 % (11.5-14.5); WHITE BLOOD COUNT 16.4 X10'3 (4.5-11.0)
[2023-11-14 06:27] LABS: ALANINE AMINOTRANSFERASE 51 U/L (12-78); ALBUMIN 2.4 G/DL (3.4-5.0); ALBUMIN/GLOBULIN RATIO 0.5 (1.1-1.5); ALKALINE PHOSPHATASE 76 IU/L (46-116); ANION GAP 10 (8-16); ASPARTATE AMINO TRANSFERASE 19 U/L (10-37); BILIRUBIN,TOTAL 0.3 MG/DL (0.1-1.0); BLOOD UREA NITROGEN 11 MG/DL (7-18); BUN/CREATININE RATIO 13.8 (10.0-20.0); CALCIUM 8.6 MG/DL (8.5-10.1); CHLORIDE 100 MMOL/L (99-107); GLUCOSE 105 MG/DL (70-104); POTASSIUM 3.9 MMOL/L (3.5-5.1); SODIUM 128 MMOL/L (135-145); TOTAL CARBON DIOXIDE 18.4 MMOL/L (24-32); TOTAL PROTEIN 7.4 G/DL (6.4-8.2); eCRCL 69 ML/MIN; eGFR 75 ML/MIN
[2023-11-14 08:00] VITALS: RESP 18; O2SAT 95
[2023-11-14 10:00] VITALS: BP 102/72; PULSE 100; RESP 16; TEMP 97; O2SAT 97
[2023-11-14] MEDS: gabapentin 400mg capsule PO ONE (15:48)
[2023-11-14] MEDS ORDERED: DAPTOMYCIN IV SCH (18:45)
[2023-11-14] MEDS ORDERED: NORMAL SALINE IV SCH (18:45)
[2023-11-14 19:00] VITALS: BP 101/69; PULSE 88; RESP 17; TEMP 97.9; O2SAT 96
[2023-11-14 20:00] VITALS: RESP 18; O2SAT 99
[2023-11-14] MEDS: fluconazole/NS 400mg/200ml bag 200 ML IV SCH (20:03)
[2023-11-14] MEDS: gabapentin 300mg capsule PO SCH (21:36)
[2023-11-14] MEDS: meropenem inj 500 MG in normal saline 100ml IV soln 100 ML IV SCH (21:37)
[2023-11-14 22:05] VITALS: BP 115/72; PULSE 87; RESP 18; TEMP 98.6; O2SAT 99
[2023-11-14] MEDS: NORMAL SALINE IV SCH (22:25)
[2023-11-14] MEDS: DAPTOMYCIN IV SCH (22:25)
[2023-11-15 06:00] VITALS: BP 102/76; PULSE 86; RESP 18; TEMP 97.8; O2SAT 99
[2023-11-15 09:15] VITALS: RESP 18; O2SAT 99
[2023-11-15 10:00] VITALS: BP 124/77; PULSE 86; RESP 18; TEMP 97.7; O2SAT 99
[2023-11-15] MEDS ORDERED: potassium Cl 40MEQ/1/2NS 520ml 520 ML IV PRN (11:10)
[2023-11-15] MEDS ORDERED: potassium Cl 20 mEq SR tablet PO PRN ×2 (11:10)
[2023-11-15] MEDS ORDERED: magnesium Cl slow-release 64mg tablet PO PRN (11:10)
[2023-11-15 12:31] LABS: BASOPHILS # (AUTO) 0.1 X10'3 (0-0.2); BASOPHILS % (AUTO) 0.3 % (0-1); EOSINOPHILS # (AUTO) 0.4 X10'3 (0-0.9); EOSINOPHILS % (AUTO) 2.1 % (0-6); HEMATOCRIT 27.8 % (35.0-45.0); HEMOGLOBIN 9.1 g/dl (12.0-16.0); LYMPHOCYTES # (AUTO) 1.6 X10'3 (1.1-4.8); LYMPHOCYTES % (AUTO) 9.3 % (21-51); MEAN CORPUSCULAR HEMOGLOBIN 27.4 PG (27.0-31.0); MEAN CORPUSCULAR HGB CONC 32.8 g/dL (33.0-36.5); MEAN CORPUSCULAR VOLUME 83.3 FL (78-98); MEAN PLATELET VOLUME 6.8 FL (7.4-10.4); MONOCYTES # (AUTO) 1.5 X10'3 (0-0.9); MONOCYTES % (AUTO) 8.6 % (2-12); NEUTROPHILS # (AUTO) 14.1 X10'3 (1.8-7.7); NEUTROPHILS % (AUTO) 79.7 % (42-75); PLATELET COUNT 382 X10'3 (140-440); RED BLOOD COUNT 3.34 X10'6 (4.20-5.60); RED CELL DISTRIBUTION WIDTH 16.9 % (11.5-14.5); WHITE BLOOD COUNT 17.7 X10'3 (4.5-11.0)
[2023-11-15 12:38] LABS: ALANINE AMINOTRANSFERASE 41 U/L (12-78); ALBUMIN 2.2 G/DL (3.4-5.0); ALBUMIN/GLOBULIN RATIO 0.5 (1.1-1.5); ALKALINE PHOSPHATASE 63 IU/L (46-116); ANION GAP 7 (8-16); ASPARTATE AMINO TRANSFERASE 17 U/L (10-37); BILIRUBIN,TOTAL 0.3 MG/DL (0.1-1.0); BLOOD UREA NITROGEN 12 MG/DL (7-18); BUN/CREATININE RATIO 15.6 (10.0-20.0); CALCIUM 7.8 MG/DL (8.5-10.1); CHLORIDE 94 MMOL/L (99-107); CREATININE 0.77 MG/DL (0.40-0.90); GLUCOSE 87 MG/DL (70-104); POTASSIUM 3.6 MMOL/L (3.5-5.1); SODIUM 130 MMOL/L (135-145); TOTAL CARBON DIOXIDE 29.3 MMOL/L (24-32); TOTAL PROTEIN 6.7 G/DL (6.4-8.2); eCRCL 73 ML/MIN; eGFR 78 ML/MIN
[2023-11-15 12:42] LABS: MAGNESIUM 0.5 MG/DL (1.5-2.4)
[2023-11-15] MEDS: magnesium 4gm in 100ml NS 100 ML IV PRN (13:23)
[2023-11-15] MEDS: magnesium 2GM in 50ml NS 50 ML IV PRN (17:49)
[2023-11-15 18:00] VITALS: BP 108/67; PULSE 81; RESP 18; TEMP 97.8; O2SAT 98
[2023-11-15] MEDS: K and/or MAG REPLACEMENT MC SCH (20:01)
[2023-11-15 20:15] VITALS: RESP 16; O2SAT 98
[2023-11-15 22:00] VITALS: BP 103/71; PULSE 74; RESP 16; TEMP 97.9; O2SAT 100
[2023-11-16] MEDS: mag hydrox/Alum hydrox/simeth 30ml oral suspension PO PRN (05:15)
[2023-11-16 06:15] LABS: BASOPHILS % (AUTO) 0.2 % (0-1); EOSINOPHILS # (AUTO) 0.4 X10'3 (0-0.9); EOSINOPHILS % (AUTO) 2.3 % (0-6); HEMOGLOBIN 8.4 g/dl (12.0-16.0); LYMPHOCYTES # (AUTO) 1.2 X10'3 (1.1-4.8); LYMPHOCYTES % (AUTO) 7.8 % (21-51); MEAN CORPUSCULAR HEMOGLOBIN 28.1 PG (27.0-31.0); MEAN CORPUSCULAR HGB CONC 33.6 g/dL (33.0-36.5); MEAN CORPUSCULAR VOLUME 83.6 FL (78-98); MONOCYTES # (AUTO) 1.2 X10'3 (0-0.9); MONOCYTES % (AUTO) 7.7 % (2-12); NEUTROPHILS # (AUTO) 12.7 X10'3 (1.8-7.7); PLATELET COUNT 384 X10'3 (140-440); RED BLOOD COUNT 2.98 X10'6 (4.20-5.60); WHITE BLOOD COUNT 15.5 X10'3 (4.5-11.0)
[2023-11-16 06:23] LABS: ALANINE AMINOTRANSFERASE 39 U/L (12-78); ALBUMIN 2.2 G/DL (3.4-5.0); ALBUMIN/GLOBULIN RATIO 0.5 (1.1-1.5); ALKALINE PHOSPHATASE 133 IU/L (46-116); ANION GAP 5 (8-16); ASPARTATE AMINO TRANSFERASE 22 U/L (10-37); BILIRUBIN,TOTAL 0.3 MG/DL (0.1-1.0); BLOOD UREA NITROGEN 9 MG/DL (7-18); BUN/CREATININE RATIO 13.8 (10.0-20.0); CALCIUM 8.3 MG/DL (8.5-10.1); CHLORIDE 94 MMOL/L (99-107); CREATININE 0.65 MG/DL (0.40-0.90); GLUCOSE 91 MG/DL (70-104); MAGNESIUM 1.8 MG/DL (1.5-2.4); POTASSIUM 3.6 MMOL/L (3.5-5.1); SODIUM 129 MMOL/L (135-145); TOTAL CARBON DIOXIDE 29.9 MMOL/L (24-32); TOTAL PROTEIN 6.7 G/DL (6.4-8.2); eCRCL 87 ML/MIN; eGFR > 90 ML/MIN
[2023-11-16 07:16] VITALS: BP 120/80; PULSE 87; RESP 18; TEMP 98.1; O2SAT 100
[2023-11-16 08:45] VITALS: RESP 18; O2SAT 100
[2023-11-16 10:00] VITALS: BP 123/82; PULSE 96; RESP 16; TEMP 98.7; O2SAT 96
[2023-11-16] MEDS: magnesium hydroxide 30ml (MOM) UD suspension PO SCH (12:06)
[2023-11-16 18:00] VITALS: BP 101/70; PULSE 91; RESP 20; TEMP 98.8; O2SAT 98
[2023-11-16 20:10] VITALS: RESP 20; O2SAT 98
[2023-11-16 22:00] VITALS: BP 105/74; PULSE 82; RESP 18; TEMP 97.6; O2SAT 96
[2023-11-17 06:49] VITALS: BP 119/75; PULSE 84; RESP 16; TEMP 97.6; O2SAT 98
[2023-11-17 09:20] VITALS: RESP 18; O2SAT 97
[2023-11-17 10:00] VITALS: BP 110/73; PULSE 96; RESP 16; TEMP 97.4; O2SAT 97
[2023-11-17 13:32] LABS: BASOPHILS % (AUTO) 0 % (0-1); EOSINOPHILS # (AUTO) 0.3 X10'3 (0-0.9); EOSINOPHILS % (AUTO) 1.6 % (0-6); HEMATOCRIT 24.2 % (35.0-45.0); LYMPHOCYTES # (AUTO) 0.9 X10'3 (1.1-4.8); LYMPHOCYTES % (AUTO) 4.7 % (21-51); MEAN CORPUSCULAR HGB CONC 33.1 g/dL (33.0-36.5); MEAN CORPUSCULAR VOLUME 84.4 FL (78-98); MEAN PLATELET VOLUME 6.8 FL (7.4-10.4); MONOCYTES # (AUTO) 1.2 X10'3 (0-0.9); MONOCYTES % (AUTO) 6.9 % (2-12); NEUTROPHILS # (AUTO) 15.8 X10'3 (1.8-7.7); NEUTROPHILS % (AUTO) 86.8 % (42-75); PLATELET COUNT 352 X10'3 (140-440); RED BLOOD COUNT 2.87 X10'6 (4.20-5.60); RED CELL DISTRIBUTION WIDTH 16.9 % (11.5-14.5); WHITE BLOOD COUNT 18.2 X10'3 (4.5-11.0)
[2023-11-17 13:41] LABS: ALANINE AMINOTRANSFERASE 37 U/L (12-78); ALBUMIN 2.2 G/DL (3.4-5.0); ALBUMIN/GLOBULIN RATIO 0.5 (1.1-1.5); ALKALINE PHOSPHATASE 72 IU/L (46-116); ANION GAP 3 (8-16); ASPARTATE AMINO TRANSFERASE 10 U/L (10-37); BILIRUBIN,TOTAL 0.3 MG/DL (0.1-1.0); BLOOD UREA NITROGEN 9 MG/DL (7-18); CALCIUM 9.1 MG/DL (8.5-10.1); CHLORIDE 95 MMOL/L (99-107); CREATININE 0.69 MG/DL (0.40-0.90); GLUCOSE 101 MG/DL (70-104); MAGNESIUM 1.8 MG/DL (1.5-2.4); POTASSIUM 4.3 MMOL/L (3.5-5.1); SODIUM 128 MMOL/L (135-145); TOTAL CARBON DIOXIDE 30.2 MMOL/L (24-32); TOTAL PROTEIN 6.6 G/DL (6.4-8.2); eCRCL 80 ML/MIN; eGFR 89 ML/MIN
[2023-11-17 18:00] VITALS: BP 108/74; PULSE 84; RESP 18; TEMP 97.8; O2SAT 99
[2023-11-17 20:10] VITALS: RESP 18; O2SAT 99
[2023-11-17 22:00] VITALS: BP 123/84; PULSE 76; RESP 18; TEMP 98.9; O2SAT 97
[2023-11-18] VITALS (7 sets, daily range): BP systolic 103–124; BP diastolic 68–79; PULSE 79–89; RESP 12–18; TEMP 97–98; O2SAT 94–98
[2023-11-18 06:06] LABS: BASOPHILS % (AUTO) 0.2 % (0-1); EOSINOPHILS # (AUTO) 0.3 X10'3 (0-0.9); EOSINOPHILS % (AUTO) 1.7 % (0-6); HEMATOCRIT 24.7 % (35.0-45.0); HEMOGLOBIN 8.4 g/dl (12.0-16.0); LYMPHOCYTES # (AUTO) 1.4 X10'3 (1.1-4.8); LYMPHOCYTES % (AUTO) 8.5 % (21-51); MEAN CORPUSCULAR HEMOGLOBIN 28.5 PG (27.0-31.0); MEAN CORPUSCULAR VOLUME 83.7 FL (78-98); MONOCYTES # (AUTO) 1.1 X10'3 (0-0.9); MONOCYTES % (AUTO) 6.7 % (2-12); NEUTROPHILS # (AUTO) 13.7 X10'3 (1.8-7.7); NEUTROPHILS % (AUTO) 82.9 % (42-75); PLATELET COUNT 365 X10'3 (140-440); RED BLOOD COUNT 2.96 X10'6 (4.20-5.60); RED CELL DISTRIBUTION WIDTH 16.7 % (11.5-14.5); WHITE BLOOD COUNT 16.5 X10'3 (4.5-11.0)
[2023-11-18 06:26] LABS: ALANINE AMINOTRANSFERASE 34 U/L (12-78); ALBUMIN 2.3 G/DL (3.4-5.0); ALBUMIN/GLOBULIN RATIO 0.5 (1.1-1.5); ALKALINE PHOSPHATASE 102 IU/L (46-116); ANION GAP 2 (8-16); ASPARTATE AMINO TRANSFERASE 22 U/L (10-37); BILIRUBIN,TOTAL 0.4 MG/DL (0.1-1.0); BLOOD UREA NITROGEN 9 MG/DL (7-18); BUN/CREATININE RATIO 12.5 (10.0-20.0); CALCIUM 9.1 MG/DL (8.5-10.1); CHLORIDE 94 MMOL/L (99-107); CREATININE 0.72 MG/DL (0.40-0.90); GLUCOSE 82 MG/DL (70-104); MAGNESIUM 1.9 MG/DL (1.5-2.4); POTASSIUM 4.7 MMOL/L (3.5-5.1); SODIUM 123 MMOL/L (135-145); TOTAL CARBON DIOXIDE 26.8 MMOL/L (24-32); eCRCL 77 ML/MIN; eGFR 85 ML/MIN
[2023-11-18] MEDS: fluconazole 100mg tablet PO SCH (09:13)
[2023-11-18] MEDS: magnesium hydroxide 30ml (MOM) UD suspension PO PRN (19:13)
[2023-11-19] VITALS (9 sets, daily range): BP systolic 101–108; BP diastolic 54–80; PULSE 75–96; RESP 14–17; TEMP 97.1–98.8; O2SAT 95–100
[2023-11-19 04:28] LABS: BASOPHILS % (AUTO) 0.1 % (0-1); EOSINOPHILS # (AUTO) 0.2 X10'3 (0-0.9); EOSINOPHILS % (AUTO) 1.6 % (0-6); HEMATOCRIT 25.2 % (35.0-45.0); HEMOGLOBIN 8.6 g/dl (12.0-16.0); LYMPHOCYTES % (AUTO) 6.7 % (21-51); MEAN CORPUSCULAR HEMOGLOBIN 28.6 PG (27.0-31.0); MEAN CORPUSCULAR VOLUME 84.1 FL (78-98); MEAN PLATELET VOLUME 6.6 FL (7.4-10.4); MONOCYTES # (AUTO) 1.1 X10'3 (0-0.9); MONOCYTES % (AUTO) 7.1 % (2-12); NEUTROPHILS # (AUTO) 12.9 X10'3 (1.8-7.7); NEUTROPHILS % (AUTO) 84.5 % (42-75); PLATELET COUNT 351 X10'3 (140-440); RED BLOOD COUNT 2.99 X10'6 (4.20-5.60); RED CELL DISTRIBUTION WIDTH 16.9 % (11.5-14.5); WHITE BLOOD COUNT 15.3 X10'3 (4.5-11.0)
[2023-11-19 04:39] LABS: ALANINE AMINOTRANSFERASE 33 U/L (12-78); ALBUMIN 2.3 G/DL (3.4-5.0); ALBUMIN/GLOBULIN RATIO 0.5 (1.1-1.5); ALKALINE PHOSPHATASE 82 IU/L (46-116); ANION GAP 8 (8-16); ASPARTATE AMINO TRANSFERASE 16 U/L (10-37); BILIRUBIN,TOTAL 0.3 MG/DL (0.1-1.0); BLOOD UREA NITROGEN 10 MG/DL (7-18); BUN/CREATININE RATIO 13.7 (10.0-20.0); CALCIUM 9.7 MG/DL (8.5-10.1); CHLORIDE 96 MMOL/L (99-107); CREATININE 0.73 MG/DL (0.40-0.90); GLUCOSE 92 MG/DL (70-104); MAGNESIUM 1.8 MG/DL (1.5-2.4); POTASSIUM 4.9 MMOL/L (3.5-5.1); SODIUM 128 MMOL/L (135-145); TOTAL CARBON DIOXIDE 24.2 MMOL/L (24-32); TOTAL PROTEIN 7.1 G/DL (6.4-8.2); eCRCL 75 ML/MIN; eGFR 83 ML/MIN
[2023-11-19] MEDS: tPA-cathflo 2 MG/2 ml IV flush IVF ONE ×2 (09:40)
[2023-11-20 02:52] LABS: BASOPHILS % (AUTO) 0.1 % (0-1); EOSINOPHILS # (AUTO) 0.2 X10'3 (0-0.9); EOSINOPHILS % (AUTO) 1.7 % (0-6); HEMATOCRIT 26.8 % (35.0-45.0); HEMOGLOBIN 8.4 g/dl (12.0-16.0); LYMPHOCYTES # (AUTO) 1.5 X10'3 (1.1-4.8); LYMPHOCYTES % (AUTO) 10.2 % (21-51); MEAN CORPUSCULAR HEMOGLOBIN 26.8 PG (27.0-31.0); MEAN CORPUSCULAR HGB CONC 31.5 g/dL (33.0-36.5); MEAN CORPUSCULAR VOLUME 85.3 FL (78-98); MEAN PLATELET VOLUME 6.5 FL (7.4-10.4); MONOCYTES # (AUTO) 1.2 X10'3 (0-0.9); MONOCYTES % (AUTO) 8.1 % (2-12); NEUTROPHILS # (AUTO) 11.4 X10'3 (1.8-7.7); NEUTROPHILS % (AUTO) 79.9 % (42-75); PLATELET COUNT 367 X10'3 (140-440); RED BLOOD COUNT 3.14 X10'6 (4.20-5.60); RED CELL DISTRIBUTION WIDTH 16.7 % (11.5-14.5); WHITE BLOOD COUNT 14.3 X10'3 (4.5-11.0)
[2023-11-20 03:06] LABS: ALANINE AMINOTRANSFERASE 29 U/L (12-78); ALBUMIN 2.2 G/DL (3.4-5.0); ALBUMIN/GLOBULIN RATIO 0.4 (1.1-1.5); ALKALINE PHOSPHATASE 74 IU/L (46-116); ANION GAP 4 (8-16); ASPARTATE AMINO TRANSFERASE 14 U/L (10-37); BILIRUBIN,TOTAL 0.3 MG/DL (0.1-1.0); BLOOD UREA NITROGEN 16 MG/DL (7-18); CALCIUM 9.9 MG/DL (8.5-10.1); CHLORIDE 91 MMOL/L (99-107); GLUCOSE 90 MG/DL (70-104); PREALBUMIN 16.2 MG/DL (19-36); TOTAL CARBON DIOXIDE 25.2 MMOL/L (24-32); TOTAL PROTEIN 7.1 G/DL (6.4-8.2); eCRCL 54 ML/MIN; eGFR 58 ML/MIN
[2023-11-20 03:10] LABS: SODIUM 120 MMOL/L (135-145)
[2023-11-20] MEDS: normal saline 1000ml 1,000 ML IV SCH (03:28)
[2023-11-20] MEDS: sodium chloride 1gm tablet PO SCH (03:35)
[2023-11-20 07:19] VITALS: BP 103/72; PULSE 77; RESP 16; TEMP 98.2; O2SAT 97
[2023-11-20 07:56] VITALS: RESP 16; O2SAT 97
[2023-11-20 10:34] VITALS: BP 97/70; PULSE 86; RESP 16; TEMP 98; O2SAT 97
[2023-11-20 18:00] VITALS: BP 109/68; PULSE 82; RESP 18; TEMP 98.6; O2SAT 100
[2023-11-20 20:00] VITALS: RESP 18; O2SAT 100
[2023-11-20] MEDS: gabapentin 300mg capsule PO SCH (21:30)
[2023-11-20] MEDS: oxyCODONE/APAP 10/325mg tablet PO PRN (21:32)
[2023-11-20 22:00] VITALS: BP 99/57; PULSE 79; RESP 14; TEMP 97.9; O2SAT 97
[2023-11-21 08:00] VITALS: RESP 16; O2SAT 97
[2023-11-21 09:45] VITALS: BP_SYST 115; PULSE 85
[2023-11-21 14:15] VITALS: RESP 16
[2023-11-21 17:32] VITALS: RESP 18
[2023-11-21] MEDS ORDERED: OXYC-150 PO (17:52)
== END 2023-11-21 17:44 | disposition home health service (06) | DRG 757 ==
LOC: ER 18:17 → ED HOLD 22:27 → ORTHO 4S 11-04 00:09 → SUR 3N 11-04 23:00
PROVIDERS: ADMIT Internal Medicine; ATTEND Family Medicine
PROC: BW211ZZ Computerized Tomography (CT Scan) of Abdomen and Pelvis using Low Osmolar Contrast (ICD-10-PCS; principal; 2023-11-13)
DX: N73.9 Female pelvic inflammatory disease, unspecified (principal); K65.9 Peritonitis, unspecified; N17.0 Acute kidney failure with tubular necrosis; K56.7 Ileus, unspecified; E44.0 Moderate protein-calorie malnutrition; R18.8 Other ascites; E87.1 Hypo-osmolality and hyponatremia; F10.20 Alcohol dependence, uncomplicated; F31.9 Bipolar disorder, unspecified; K21.9 Gastro-esophageal reflux disease without esophagitis; G43.909 Migraine, unspecified, not intractable, without status migrainosus; F41.9 Anxiety disorder, unspecified; B19.20 Unspecified viral hepatitis C without hepatic coma; K76.89 Other specified diseases of liver; G89.4 Chronic pain syndrome; B96.20 Unspecified Escherichia coli [E. coli] as the cause of diseases classified elsewhere; F41.0 Panic disorder [episodic paroxysmal anxiety]; I10 Essential (primary) hypertension; Z90.49 Acquired absence of other specified parts of digestive tract; Z84.89 Family history of other specified conditions; Z93.2 Ileostomy status; Z93.1 Gastrostomy status; Z87.891 Personal history of nicotine dependence
CPT/HCPCS: 36415; 74176; 74177; 80048; 80053; 81001; 82570; 83605; 83735; 83935; 83970; 84100; 84133; 84134; 84145; 84300; 84484; 84540; 85025; 85610; 85730; 87040; 87077; 87081; 87088; 87186; 87207; 93005; 96374; 97110; 97116; 97161; 97530; 99285; A4314; A4421; A4649; A6212; A6250; A6258; A6449; C1758; C9113; G0378; J0878; J1170; J1200; J1450; J1650; J1885; J2185; J2270; J2405; J2765; J2997; J3475; J3490; J7030; J7040; J7070; J7120; Q9963; Q9967

== ENCOUNTER 2024-02-20 21:03 | Inpatient (IN) | payer BC ==
[~2024-02-20] VITALS: Ht 167.6 cm; Wt 55.1 kg
[~2024-02-20 21:03] MED LIST changes: -ATOM40CA7 PO; -FLUO-211 PO; -LISI40TA13 PO; +OXYC-150 PO; -VERA240T92 PO
[2024-02-20 22:09] LABS: BASOPHILS % (AUTO) 0.1 % (0-1); EOSINOPHILS % (AUTO) 0.1 % (0-6); HEMATOCRIT 32.9 % (35.0-45.0); HEMOGLOBIN 11.2 g/dl (12.0-16.0); LYMPHOCYTES % (AUTO) 4.9 % (21-51); MEAN CORPUSCULAR VOLUME 91.3 FL (78-98); MEAN PLATELET VOLUME 6.7 FL (7.4-10.4); MONOCYTES # (AUTO) 0.9 X10'3 (0-0.9); MONOCYTES % (AUTO) 4.6 % (2-12); NEUTROPHILS # (AUTO) 17.7 X10'3 (1.8-7.7); NEUTROPHILS % (AUTO) 90.3 % (42-75); PLATELET COUNT 444 X10'3 (140-440); RED BLOOD COUNT 3.61 X10'6 (4.20-5.60); RED CELL DISTRIBUTION WIDTH 14.3 % (11.5-14.5); WHITE BLOOD COUNT 19.6 X10'3 (4.5-11.0)
[2024-02-20 22:21] LABS: ALANINE AMINOTRANSFERASE 23 U/L (12-78); ALBUMIN 3.3 G/DL (3.4-5.0); ALBUMIN/GLOBULIN RATIO 0.8 (1.1-1.5); ALKALINE PHOSPHATASE 63 IU/L (46-116); ANION GAP 15 (8-16); ASPARTATE AMINO TRANSFERASE 11 U/L (10-37); BILIRUBIN,TOTAL 0.5 MG/DL (0.1-1.0); BLOOD UREA NITROGEN 51 MG/DL (7-18); BUN/CREATININE RATIO 59.3 (10.0-20.0); CALCIUM 8.7 MG/DL (8.5-10.1); CHLORIDE 91 MMOL/L (99-107); CREATININE 0.86 MG/DL (0.40-0.90); GLUCOSE 137 MG/DL (70-104); LIPASE 56 U/L (16-77); SODIUM 126 MMOL/L (135-145); TOTAL PROTEIN 7.7 G/DL (6.4-8.2); eCRCL 66 ML/MIN; eGFR 69 ML/MIN
[2024-02-21] MEDS: normal saline 1000ml 1,000 ML IV ONE ×3 (01:51→04:40)
[2024-02-21] MEDS ORDERED: magnesium sulf-water 2g/50mL 50 ML IV PRN (02:40)
[2024-02-21] MEDS ORDERED: ondansetron/PF 4mg/2ml inj IV PRN (02:40)
[2024-02-21] MEDS ORDERED: acetaminophen 325mg tablet PO PRN (02:40)
[2024-02-21] MEDS ORDERED: morphine 2 MG/ML inj. syringe IV PRN ×2 (02:40)
[2024-02-21] MEDS ORDERED: potassium Cl 20 mEq SR tablet PO PRN (02:40)
[2024-02-21] MEDS ORDERED: piperacillin/tazo 3.375gm/50ml 50 ML IV SCH (02:45)
[2024-02-21] MEDS ORDERED: iohexol 300mg/ml 100ml inj. ONE (02:55)
[2024-02-21 02:56] LABS: BASOPHILS # (AUTO) 0.1 X10'3 (0-0.2); BASOPHILS % (AUTO) 0.3 % (0-1); EOSINOPHILS % (AUTO) 0.1 % (0-6); HEMATOCRIT 30.9 % (35.0-45.0); HEMOGLOBIN 10.6 g/dl (12.0-16.0); LYMPHOCYTES # (AUTO) 1.8 X10'3 (1.1-4.8); LYMPHOCYTES % (AUTO) 7.3 % (21-51); MEAN CORPUSCULAR HEMOGLOBIN 31.3 PG (27.0-31.0); MEAN CORPUSCULAR HGB CONC 34.3 g/dL (33.0-36.5); MEAN CORPUSCULAR VOLUME 91.2 FL (78-98); MEAN PLATELET VOLUME 7.2 FL (7.4-10.4); MONOCYTES # (AUTO) 1.5 X10'3 (0-0.9); MONOCYTES % (AUTO) 6.2 % (2-12); NEUTROPHILS # (AUTO) 21.3 X10'3 (1.8-7.7); NEUTROPHILS % (AUTO) 86.1 % (42-75); PLATELET COUNT 496 X10'3 (140-440); RED BLOOD COUNT 3.39 X10'6 (4.20-5.60); RED CELL DISTRIBUTION WIDTH 14.4 % (11.5-14.5); WHITE BLOOD COUNT 24.7 X10'3 (4.5-11.0)
[2024-02-21 03:16] LABS: ALANINE AMINOTRANSFERASE 23 U/L (12-78); ALBUMIN 3.1 G/DL (3.4-5.0); ALBUMIN/GLOBULIN RATIO 0.7 (1.1-1.5); ALKALINE PHOSPHATASE 59 IU/L (46-116); ANION GAP 15 (8-16); ASPARTATE AMINO TRANSFERASE 16 U/L (10-37); BILIRUBIN,TOTAL 0.5 MG/DL (0.1-1.0); BLOOD UREA NITROGEN 62 MG/DL (7-18); BUN/CREATININE RATIO 60.8 (10.0-20.0); CALCIUM 8.6 MG/DL (8.5-10.1); CHLORIDE 88 MMOL/L (99-107); CREATININE 1.02 MG/DL (0.40-0.90); GLUCOSE 165 MG/DL (70-104); POTASSIUM 3.1 MMOL/L (3.5-5.1); SODIUM 123 MMOL/L (135-145); TOTAL CARBON DIOXIDE 19.9 MMOL/L (24-32); TOTAL PROTEIN 7.5 G/DL (6.4-8.2); eCRCL 55 ML/MIN; eGFR 57 ML/MIN
[2024-02-21 03:20] LABS: MAGNESIUM 0.2 MG/DL (1.5-2.4)
[2024-02-21] MEDS: normal saline 1000ml 1,000 ML IV SCH (03:32)
[2024-02-21] MEDS: HYDROmorphone inj. 0.5 MG/0.5 ML DISP.SYRIN IV SCH (03:32)
[2024-02-21] MEDS: magnesium sulf-water 4G/100mL 100 ML IV PRN (03:36)
[2024-02-21] MEDS ORDERED: pantoprazole 40mg IV 80 MG in normal saline 100ml IV soln 100 ML IV ONE (04:00)
[2024-02-21 04:20] LABS: APTT 30 SECONDS (22-32); INR 1.1 INR; PROTHROMBIN TIME 11.2 SECONDS (9.0-12.0)
[2024-02-21] MEDS: morphine 4 MG/ML inj SYRINge IV ONE (04:49)
[2024-02-21] MEDS: pantoprazole 40 MG vial IV ONE (04:50)
[2024-02-21] MEDS: pantoprazole 40MG/NS 100ML BAG 100 ML IV SCH (05:06)
[2024-02-21] MEDS: meropenem inj 500 MG in normal saline 100ml IV soln 100 ML IV SCH (05:09)
[2024-02-21 06:14] LABS: BILIRUBIN,URINE NEGATIVE (Neg); CLARITY,URINE CLEAR (Clear); COLOR,URINE YELLOW (Yellow); GLUCOSE, URINE NEGATIVE (Neg); KETONES,URINE NEGATIVE (Neg); LEUKOCYTE ESTERASE ,URINE NEGATIVE (Neg); NITRITES, URINE NEGATIVE (Neg); OCCULT BLOOD,URINE NEGATIVE (Neg); PROTEIN,URINE NEGATIVE (Neg); UROBILINOGEN,URINE 0.2 E.U/dL (0.2-1.0)
[2024-02-21 06:17] LABS: URINE HCG NEGATIVE (NEG)
[2024-02-21 06:21] LABS: UA COLLECTION TYPE NON-SPECIFIED
[2024-02-21 06:22] LABS: URINE AMPHETAMINE SCREEN NEGATIVE (Neg); URINE BARBITUATE SCREEN NEGATIVE (Neg); URINE BENZODIAZEPINES SCREEN NEGATIVE (Neg); URINE CANNABINOID SCREEN NEGATIVE (Neg); URINE COCAINE SCREEN NEGATIVE (Neg); URINE METHADONE SCREEN NEGATIVE (Neg); URINE OPIATE SCREEN POSITIVE (Neg); URINE PHENCYCLIDINE SCREEN NEGATIVE (Neg)
[2024-02-21] MEDS: K and/or MAG REPLACEMENT MC SCH (06:22)
[2024-02-21] MEDS: VANCOmycin 1250MG/NS 250ml Bag 250 ML IV ONE (06:55)
[2024-02-21] MEDS: potassium Cl 40MEQ/1/2NS 520ml 520 ML IV PRN (06:55)
[2024-02-21 11:29] LABS: HEMOGLOBIN 7.2 g/dl (12.0-16.0); MEAN CORPUSCULAR HEMOGLOBIN 31.2 PG (27.0-31.0); MEAN CORPUSCULAR HGB CONC 34.1 g/dL (33.0-36.5); MEAN CORPUSCULAR VOLUME 91.3 FL (78-98); PLATELET COUNT 246 X10'3 (140-440); RED BLOOD COUNT 2.32 X10'6 (4.20-5.60); RED CELL DISTRIBUTION WIDTH 13.9 % (11.5-14.5); WHITE BLOOD COUNT 14.4 X10'3 (4.5-11.0)
[2024-02-21 11:38] LABS: HEMATOCRIT 21.2 % (35.0-45.0)
[2024-02-21 14:23] LABS: MEAN CORPUSCULAR HEMOGLOBIN 30.8 PG (27.0-31.0); MEAN CORPUSCULAR HGB CONC 33.6 g/dL (33.0-36.5); MEAN CORPUSCULAR VOLUME 91.6 FL (78-98); MEAN PLATELET VOLUME 6.6 FL (7.4-10.4); PLATELET COUNT 306 X10'3 (140-440); RED BLOOD COUNT 2.12 X10'6 (4.20-5.60); RED CELL DISTRIBUTION WIDTH 14.5 % (11.5-14.5); WHITE BLOOD COUNT 14.5 X10'3 (4.5-11.0)
[2024-02-21 14:32] LABS: HEMOGLOBIN 6.5 g/dl (12.0-16.0)
[2024-02-21 14:33] LABS: HEMATOCRIT 19.4 % (35.0-45.0)
[2024-02-21 15:23] VITALS: BP 110/81; PULSE 99; RESP 18; TEMP 98.2
[2024-02-21 15:47] VITALS: BP 118/84; PULSE 98; RESP 18; TEMP 98.5
[2024-02-21] MEDS ORDERED: vancomycin/NS 1 GM ADD-VANTAGE 250 ML IV SCH (16:00)
[2024-02-21 16:47] VITALS: BP 117/81; PULSE 84; RESP 16; TEMP 99.4
[2024-02-21 17:30] VITALS: BP 127/81; PULSE 89; RESP 16; TEMP 99.4
[2024-02-21 19:29] LABS: BASOPHILS % (AUTO) 0.2 % (0-1); EOSINOPHILS % (AUTO) 0.2 % (0-6); HEMATOCRIT 26.3 % (35.0-45.0); HEMOGLOBIN 8.9 g/dl (12.0-16.0); LYMPHOCYTES # (AUTO) 1.6 X10'3 (1.1-4.8); LYMPHOCYTES % (AUTO) 14.4 % (21-51); MEAN CORPUSCULAR HEMOGLOBIN 30.9 PG (27.0-31.0); MEAN CORPUSCULAR HGB CONC 33.7 g/dL (33.0-36.5); MEAN CORPUSCULAR VOLUME 91.8 FL (78-98); MEAN PLATELET VOLUME 6.8 FL (7.4-10.4); MONOCYTES # (AUTO) 0.9 X10'3 (0-0.9); MONOCYTES % (AUTO) 7.9 % (2-12); NEUTROPHILS # (AUTO) 8.7 X10'3 (1.8-7.7); NEUTROPHILS % (AUTO) 77.3 % (42-75); PLATELET COUNT 272 X10'3 (140-440); RED BLOOD COUNT 2.87 X10'6 (4.20-5.60); RED CELL DISTRIBUTION WIDTH 14.1 % (11.5-14.5); WHITE BLOOD COUNT 11.2 X10'3 (4.5-11.0)
[2024-02-21] MEDS: diatr meglu/diatrizoate 30ml oral sol.-(3 dose) bottle PO SCH (21:32)
[2024-02-21 22:00] VITALS: BP 113/83; PULSE 84; RESP 16; TEMP 97; O2SAT 99
[2024-02-21 22:49] VITALS: RESP 15; O2SAT 99
[2024-02-22] VITALS (24 sets, daily range): BP systolic 91–126; BP diastolic 44–93; PULSE 65–93; RESP 15–22; TEMP 96.5–98.4; O2SAT 97–100
[2024-02-22 07:07] LABS: BASOPHILS % (AUTO) 0.2 % (0-1); EOSINOPHILS % (AUTO) 0.4 % (0-6); LYMPHOCYTES % (AUTO) 16.2 % (21-51); MEAN CORPUSCULAR HEMOGLOBIN 31.2 PG (27.0-31.0); MEAN CORPUSCULAR HGB CONC 33.9 g/dL (33.0-36.5); MEAN CORPUSCULAR VOLUME 91.9 FL (78-98); MEAN PLATELET VOLUME 6.7 FL (7.4-10.4); MONOCYTES # (AUTO) 0.5 X10'3 (0-0.9); MONOCYTES % (AUTO) 7.3 % (2-12); NEUTROPHILS # (AUTO) 4.7 X10'3 (1.8-7.7); NEUTROPHILS % (AUTO) 75.9 % (42-75); PLATELET COUNT 250 X10'3 (140-440); RED BLOOD COUNT 2.19 X10'6 (4.20-5.60); RED CELL DISTRIBUTION WIDTH 14.2 % (11.5-14.5); WHITE BLOOD COUNT 6.2 X10'3 (4.5-11.0)
[2024-02-22 07:15] LABS: HEMATOCRIT 20.1 % (35.0-45.0); HEMOGLOBIN 6.8 g/dl (12.0-16.0)
[2024-02-22 07:29] LABS: APTT 27 SECONDS (22-32); PROTHROMBIN TIME 10.5 SECONDS (9.0-12.0)
[2024-02-22 07:41] LABS: ALANINE AMINOTRANSFERASE 25 U/L (12-78); ALBUMIN 2.2 G/DL (3.4-5.0); ALBUMIN/GLOBULIN RATIO 0.7 (1.1-1.5); ALKALINE PHOSPHATASE 40 IU/L (46-116); ANION GAP 5 (8-16); ASPARTATE AMINO TRANSFERASE 16 U/L (10-37); BILIRUBIN,TOTAL 0.3 MG/DL (0.1-1.0); BLOOD UREA NITROGEN 17 MG/DL (7-18); BUN/CREATININE RATIO 33.3 (10.0-20.0); CALCIUM 8.6 MG/DL (8.5-10.1); CHLORIDE 103 MMOL/L (99-107); CREATININE 0.51 MG/DL (0.40-0.90); GLUCOSE 95 MG/DL (70-104); MAGNESIUM 1.3 MG/DL (1.5-2.4); PHOSPHORUS 2.3 MG/DL (2.3-4.5); POTASSIUM 3.4 MMOL/L (3.5-5.1); SODIUM 132 MMOL/L (135-145); TOTAL CARBON DIOXIDE 23.8 MMOL/L (24-32); TOTAL PROTEIN 5.2 G/DL (6.4-8.2); eCRCL 111 ML/MIN; eGFR > 90 ML/MIN
[2024-02-22] MEDS: magnesium Cl slow-release 64mg tablet PO PRN (09:21)
[2024-02-22] MEDS: potassium Cl 20 mEq SR tablet PO PRN (09:21)
[2024-02-22] MEDS ORDERED: MIDAZolam 1 MG/ML 5ML VIAL ONE ×2 (13:06→14:06)
[2024-02-22] MEDS ORDERED: LIDOcaine 2% Viscous 15ml cup ONE (13:06)
[2024-02-22] MEDS ORDERED: fentaNYL/PF 50MCG/1 ML 2ML syringe ONE ×2 (13:06→14:06)
[2024-02-22] MEDS ORDERED: epiNEPHrine 0.1mg/ml 10ml syringe ONE (13:58)
[2024-02-22] MEDS ORDERED: VANCOMYCIN LEVEL IV ONE (15:30)
[2024-02-22 18:48] LABS: MEAN CORPUSCULAR HEMOGLOBIN 31.4 PG (27.0-31.0); MEAN CORPUSCULAR HGB CONC 34.1 g/dL (33.0-36.5); MEAN PLATELET VOLUME 6.7 FL (7.4-10.4); PLATELET COUNT 197 X10'3 (140-440); RED BLOOD COUNT 2.11 X10'6 (4.20-5.60); RED CELL DISTRIBUTION WIDTH 14.2 % (11.5-14.5); WHITE BLOOD COUNT 5.5 X10'3 (4.5-11.0)
[2024-02-22 18:58] LABS: HEMATOCRIT 19.4 % (35.0-45.0); HEMOGLOBIN 6.6 g/dl (12.0-16.0)
[2024-02-22] MEDS: HYDROmorphone inj. 0.5 MG/0.5 ML DISP.SYRIN IV ONE (19:41)
[2024-02-22 20:16] LABS: BASOPHILS % (AUTO) 0.3 % (0-1); EOSINOPHILS # (AUTO) 0.1 X10'3 (0-0.9); EOSINOPHILS % (AUTO) 1.4 % (0-6); LYMPHOCYTES # (AUTO) 0.9 X10'3 (1.1-4.8); LYMPHOCYTES % (AUTO) 15.2 % (21-51); MEAN CORPUSCULAR HEMOGLOBIN 31.7 PG (27.0-31.0); MEAN CORPUSCULAR HGB CONC 34.5 g/dL (33.0-36.5); MEAN CORPUSCULAR VOLUME 92.1 FL (78-98); MEAN PLATELET VOLUME 6.8 FL (7.4-10.4); MONOCYTES # (AUTO) 0.4 X10'3 (0-0.9); MONOCYTES % (AUTO) 7.3 % (2-12); NEUTROPHILS # (AUTO) 4.5 X10'3 (1.8-7.7); NEUTROPHILS % (AUTO) 75.8 % (42-75); PLATELET COUNT 209 X10'3 (140-440); RED BLOOD COUNT 2.12 X10'6 (4.20-5.60); RED CELL DISTRIBUTION WIDTH 13.9 % (11.5-14.5); WHITE BLOOD COUNT 5.9 X10'3 (4.5-11.0)
[2024-02-22 20:23] LABS: HEMATOCRIT 19.5 % (35.0-45.0)
[2024-02-22 20:24] LABS: HEMOGLOBIN 6.7 g/dl (12.0-16.0)
[2024-02-22] MEDS: HYDROmorphone 1 mg/ml syringe IV PRN (22:34)
[2024-02-22] MEDS ORDERED: HYDROmorphone inj. 0.5 MG/0.5 ML DISP.SYRIN IV PRN (23:30)
[2024-02-23 00:14] LABS: HEMOGLOBIN 7.4 g/dl (12.0-16.0); MEAN CORPUSCULAR HEMOGLOBIN 31.2 PG (27.0-31.0); MEAN CORPUSCULAR HGB CONC 34.3 g/dL (33.0-36.5); MEAN CORPUSCULAR VOLUME 91.2 FL (78-98); MEAN PLATELET VOLUME 6.7 FL (7.4-10.4); PLATELET COUNT 199 X10'3 (140-440); RED BLOOD COUNT 2.37 X10'6 (4.20-5.60); RED CELL DISTRIBUTION WIDTH 14.4 % (11.5-14.5); WHITE BLOOD COUNT 5.7 X10'3 (4.5-11.0)
[2024-02-23 00:16] LABS: HEMATOCRIT 21.6 % (35.0-45.0)
[2024-02-23 06:00] VITALS: BP 113/76; PULSE 79; RESP 16; TEMP 98.1; O2SAT 98
[2024-02-23 08:00] VITALS: RESP 16; O2SAT 98
[2024-02-23 08:03] LABS: BASOPHILS % (AUTO) 0.5 % (0-1); EOSINOPHILS # (AUTO) 0.1 X10'3 (0-0.9); EOSINOPHILS % (AUTO) 2.5 % (0-6); HEMATOCRIT 22.7 % (35.0-45.0); HEMOGLOBIN 7.8 g/dl (12.0-16.0); LYMPHOCYTES # (AUTO) 0.8 X10'3 (1.1-4.8); LYMPHOCYTES % (AUTO) 17.5 % (21-51); MEAN CORPUSCULAR HEMOGLOBIN 31.5 PG (27.0-31.0); MEAN CORPUSCULAR HGB CONC 34.3 g/dL (33.0-36.5); MEAN CORPUSCULAR VOLUME 91.9 FL (78-98); MEAN PLATELET VOLUME 6.8 FL (7.4-10.4); MONOCYTES # (AUTO) 0.4 X10'3 (0-0.9); MONOCYTES % (AUTO) 7.8 % (2-12); NEUTROPHILS # (AUTO) 3.4 X10'3 (1.8-7.7); NEUTROPHILS % (AUTO) 71.7 % (42-75); PLATELET COUNT 214 X10'3 (140-440); RED BLOOD COUNT 2.47 X10'6 (4.20-5.60); RED CELL DISTRIBUTION WIDTH 14.4 % (11.5-14.5); WHITE BLOOD COUNT 4.7 X10'3 (4.5-11.0)
[2024-02-23 08:09] LABS: ALANINE AMINOTRANSFERASE 25 U/L (12-78); ALBUMIN 2.2 G/DL (3.4-5.0); ALBUMIN/GLOBULIN RATIO 0.7 (1.1-1.5); ALKALINE PHOSPHATASE 40 IU/L (46-116); ANION GAP 6 (8-16); ASPARTATE AMINO TRANSFERASE 16 U/L (10-37); BILIRUBIN,TOTAL 0.6 MG/DL (0.1-1.0); BLOOD UREA NITROGEN 7 MG/DL (7-18); BUN/CREATININE RATIO 15.6 (10.0-20.0); CALCIUM 8.4 MG/DL (8.5-10.1); CHLORIDE 104 MMOL/L (99-107); CREATININE 0.45 MG/DL (0.40-0.90); GLUCOSE 93 MG/DL (70-104); MAGNESIUM 1.1 MG/DL (1.5-2.4); PHOSPHORUS 2.4 MG/DL (2.3-4.5); POTASSIUM 3.9 MMOL/L (3.5-5.1); SODIUM 131 MMOL/L (135-145); TOTAL CARBON DIOXIDE 21.2 MMOL/L (24-32); TOTAL PROTEIN 5.2 G/DL (6.4-8.2); eCRCL 126 ML/MIN; eGFR > 90 ML/MIN
[2024-02-23 08:11] LABS: APTT 27 SECONDS (22-32); PROTHROMBIN TIME 10.5 SECONDS (9.0-12.0)
[2024-02-23 11:00] VITALS: BP 117/78; PULSE 73; RESP 20; TEMP 97.7; O2SAT 99
[2024-02-23 15:00] VITALS: BP 124/84; PULSE 69; RESP 18; TEMP 97.7; O2SAT 98
[2024-02-23 18:00] VITALS: BP 127/71; PULSE 66; RESP 18; TEMP 98.1; O2SAT 98
[2024-02-23 18:47] LABS: HEMATOCRIT 22.2 % (35.0-45.0); HEMOGLOBIN 7.6 g/dl (12.0-16.0); MEAN CORPUSCULAR HEMOGLOBIN 31.3 PG (27.0-31.0); MEAN CORPUSCULAR VOLUME 92.2 FL (78-98); MEAN PLATELET VOLUME 6.5 FL (7.4-10.4); PLATELET COUNT 239 X10'3 (140-440); RED BLOOD COUNT 2.41 X10'6 (4.20-5.60); WHITE BLOOD COUNT 7.1 X10'3 (4.5-11.0)
[2024-02-23 20:00] VITALS: RESP 18; O2SAT 98
[2024-02-24 06:00] VITALS: BP 131/79; PULSE 57; RESP 13; TEMP 97.1; O2SAT 100
[2024-02-24 08:00] VITALS: RESP 13; O2SAT 100
[2024-02-24] MEDS: pantoprazole 40mg Tablet.DR PO SCH (09:36)
[2024-02-24 11:00] VITALS: BP 126/82; PULSE 59; RESP 15; TEMP 98.2; O2SAT 99
[2024-02-24] MEDS ORDERED: PANT40TA54 PO (11:13)
[2024-02-24] MEDS ORDERED: ONDA-243 PO (11:13)
[2024-02-24] MEDS ORDERED: POLY17PO10 PO (11:19)
== END 2024-02-24 14:07 | disposition home health service (06) | DRG 378 ==
LOC: ER 21:04 → ED HOLD 02-21 02:44 → EDBEDREQ 02-21 19:44 → PCU 3S 02-21 20:37
PROVIDERS: ADMIT Internal Medicine Critical Care Medicine; ATTEND Internal Medicine
PROC: 30233N1 Transfusion of Nonautologous Red Blood Cells into Peripheral Vein, Percutaneous Approach (ICD-10-PCS; 2024-02-21)
PROC: 0DJ08ZZ Inspection of Upper Intestinal Tract, Via Natural or Artificial Opening Endoscopic (ICD-10-PCS; principal; 2024-02-22)
DX: K28.4 Chronic or unspecified gastrojejunal ulcer with hemorrhage (principal); E87.1 Hypo-osmolality and hyponatremia; E87.20 Acidosis, unspecified; D64.9 Anemia, unspecified; D72.829 Elevated white blood cell count, unspecified; E83.42 Hypomagnesemia; E87.6 Hypokalemia; E87.8 Other disorders of electrolyte and fluid balance, not elsewhere classified; F31.9 Bipolar disorder, unspecified; F41.0 Panic disorder [episodic paroxysmal anxiety]; B19.20 Unspecified viral hepatitis C without hepatic coma; N18.9 Chronic kidney disease, unspecified; F10.20 Alcohol dependence, uncomplicated; Y90.9 Presence of alcohol in blood, level not specified; G89.4 Chronic pain syndrome; Z76.5 Malingerer [conscious simulation]; Z87.11 Personal history of peptic ulcer disease; Z90.49 Acquired absence of other specified parts of digestive tract; Z93.3 Colostomy status; Z93.4 Other artificial openings of gastrointestinal tract status
CPT/HCPCS: 36415; 36430; 43235; 74177; 74178; 80053; 80305; 81003; 81025; 82941; 83605; 83690; 83735; 84100; 84145; 85025; 85027; 85610; 85730; 86803; 86885; 86900; 86901; 86920; 87040; 87081; 87522; 93005; 99152; 99285; A4371; A4421; A4620; A4649; A6209; A6213; A6250; A6449; G0378; J0171; J1170; J2185; J2250; J2270; J2470; J3010; J3370; J3475; J3480; J7030; J7040; J7050; P9016; Q9963; Q9967

== ENCOUNTER 2025-04-02 16:19 | Inpatient (IN) | payer BC ==
[~2025-04-02] VITALS: Ht 167.6 cm; Wt 57.0 kg
[~2025-04-02 16:19] MED LIST changes: +ONDA-243 PO; -OXYC-150 PO; -VENL150T3 PO
[2025-04-02 17:13] LABS: MEAN PLATELET VOLUME 6.7 FL (7.4-10.4); RED CELL DISTRIBUTION WIDTH 19.9 % (11.5-14.5)
[2025-04-02] MEDS: normal saline 1000ml 1,000 ML IV ONE ×2 (17:20→18:26)
[2025-04-02] MEDS ORDERED: octreotide inj. 1,250 MCG in normal saline 250ml IV soln 243.75 ML IV SCH (17:20)
[2025-04-02 17:27] LABS: CREATININE 0.46 MG/DL (0.40-0.90); TOTAL CARBON DIOXIDE 16.3 MMOL/L (24-32); eCRCL 126 ML/MIN; eGFR > 90 ML/MIN
[2025-04-02 17:35] LABS: PLATELET ESTIMATE INCREASED
[2025-04-02 17:36] LABS: ELLIPTOCYTES 1+
--- NOTE | 2025-04-02 18:06 | Physician Documentation ---
History of Present Illness Chief Complaint: Abdominal Pain Stated Complaint: ABD PAIN Time Seen by MD: 16:45 Primary Medical Doctor: MAKI Source: patient Mode of Arrival: EMS Exam Limitations: no limitations HPI Patient has multiple medical problems presented via EMS secondary to abdominal pain, nausea, vomiting, black tarry stools and epigastric pain. Was at [facility] yesterday with similar complaints and stated was not given a diagnosis. She com [place] of continued abd pain, weakness and worsening pain. Therefore, called EMS for repeat evaluation. Timing/Duration: days Quality/Severity: severe Location: diffuse Medication Reconciliation Allergies: Coded Allergies: No Known Allergies (Unverified , 02/21/24) Scheduled Lisinopril (Lisinopril), 1 TAB PO DAILY, (Reported) Pantoprazole Sodium (Pantoprazole Sodium), 40 MG PO BID Discontinued Medications ONDANSETRON ODT 4mg tablet (Ondansetron Odt), 0.5 TAB PO Q8H PRN for nausea/vomiting Discontinued Reason: patient no longer taking Past Medical History Past Medical History: Hepatitis C, *ENDOCRINE*, Thyroid (unspecified), Anxiety, Bipolar, Depression, Panic Disorder Past Surgical History: abdominal surgery, other Other Past Surgical History: Tumor removal of thyroid and pancreas. Patient History: FH: multiple endocrine neoplasia (MEN) syndrome brother (MEN II) MEN (multiple endocrine neoplasia) Alcohol Use: Heavy Drug Use: none Lives with: Family Lives In: Home Occupation: employed Review of Systems ROS Patient complains of abdominal pain, nausea, black tarry stools and blood in the vomit. She is known alcohol use. No fevers or chills. No chest pain or press ure. No shortness a breath. Was asked, but otherwise denies review of systems. Physical Exam Vital Signs: Temperature: 97.7, Source: Temporal, Heart Rate: 127, Respiratory Rate: 22, BP: 150/105, Pulse Oximetry: 97, Weight: 57.000 Oxygen Flow Rate: 0 Pulse Oximetry Reflects: adequate oxygenation Physical Exam General: Awake, alert, oriented. No apparent distress Neck: Supple. Normal range of motion. No JVD Respiratory: Lungs are clear to auscultation bilaterally. No respiratory distress. Chest: Normal shape and size. No accessory muscle use. Cardiovascular: Tachycardic. Normal rhythm. S1-S2. No murmur, gallop, rub. Gastrointestinal: Pain with palpation to the entire abdomen. Bowel sounds are positive. Scar noted on inspection to the anterior abdomen. Extremities: No lower extremity edema, cyanosis or clubbing. Neurologic: Alert and oriented x4. Nonfocal Psychiatric: Normal mood and affect. Skin: Normal color. Warm and dry. Progress Progress Note 1806: Guaiac positive stool. Results/Orders Results/Orders Orders - CHRISTINE JIMENEZ PROFESSOR OF ENGLISH Urinalysis, Cult If Indicated (04/02/25 16:29) Saline Lock (04/02/25 16:29) Nothing By Mouth (04/02/25 Dinner) Normal Saline 1000ml (0.9% Sodium Chlori (04/02/25 17:20) Pantoprazole 40mg/Ns 100ml Bag (Protonix (04/02/25 21:00) Normal Saline 1000ml (0.9% Sodium Chlori (04/02/25 17:20) Normal Saline 100ml... W/Octreotide Inj. (04/02/25 17:40) Completed Orders - CHRISTINE JIMENEZ PROFESSOR OF ENGLISH Cbc/Diff (04/02/25 16:29) Lipase (04/02/25 16:29) CMP (04/02/25 16:29) Morphine 4mg/Ml Inj. (Morphine Inj.) (04/02/25 17:20) Lorazepam Inj (Ativan Inj) (04/02/25 17:20) Normal Saline 250ml... W/Octreotide Inj. (04/02/25 17:20) Vital Signs 04/02/25 04/02/25 04/02/25 16:31 16:53 17:00 Temp 97.7 97.7 Pulse 137 127 Resp 20 25 22 B/P (MAP) 91/65 150/105 (120) Pulse Ox 99 97 O2 Flow Rate 0 0 Laboratory Tests Test 04/02/25 16:45 White Blood Count 17.8 H Red Blood Count 2.95 L Hemoglobin 7.2 L Hematocrit 22.4 L Mean Corpuscular Volume 75.8 L Mean Corpuscular Hemoglobin 24.4 L Mean Corpuscular Hemoglobin Concent 32.2 L Red Cell Distribution Width 19.9 H Platelet Count 481 H Mean Platelet Volume 6.7 L Neutrophils (%) (Auto) 87.6 H Lymphocytes (%) (Auto) 7.5 L Monocytes (%) (Auto) 4.7 Eosinophils (%) (Auto) 0 Basophils (%) (Auto) 0.2 Neutrophils # (Auto) 15.6 H Lymphocytes # (Auto) 1.3 Monocytes # (Auto) 0.8 Eosinophils # (Auto) 0.0 Basophils # (Auto) 0.0 CBC Comment Platelet Estimate Increased Red Blood Cell Morphology Perf Poikilocytosis 1+ Basophilic Stippling Anisocytosis 2+ Microcytosis 1+ Elliptocytes 1+ Sodium Level 133 L Potassium Level 3.6 Chloride Level 101 Carbon Dioxide Level 16.3 L Anion Gap 16 Blood Urea Nitrogen 15 Creatinine 0.46 Estimated GFR/1.73 m2 > 90 BUN/Creatinine Ratio 32.6 H Glucose Level 194 H Calcium Level 8.1 L Total Bilirubin 0.2 Aspartate Amino Transf (AST/SGOT) 25 Alanine Aminotransferase (ALT/SGPT) 13 Alkaline Phosphatase 87 Total Protein 5.6 L Albumin 2.1 L Globulin 3.5 Albumin/Globulin Ratio 0.6 L Lipase 51 Chemistry Comments Medical Decision Making Findings Patient presented with abd pain and GI bleed. Hx of the same. She has hx of multiple abd surgeries in the past. Also with hx of alcoholism. Per EMS drank 1 liter of FireBall today, but 12 in the past week. Her stool was positive for blood and she is anemic. Case was reviewed in detail with supervising physician Dr. Osuna who had the oppertunity to independently evaluate pt. Given her anemia, GI bleed and extensive hx she was recommended for admission. He recommended starting protonix as well as Sandostatin. she c/o abd pain which was treated with morphine. Was given ativan given ETOH and potential for withdrawl. Case was reviewed with the residency Service who agreed to evaluate patient for admission. Departure Disposition: ADMITTED INPATIENT Admitted to Inpatient Unit: to hospitalist Admission Level of Care: PCU with Tele Impression: Primary Impression: GI bleed Qualified Codes: K92.2 - Gastrointestinal hemorrhage, unspecified Additional Impressions: AA (alcohol abuse) Anemia Qualified Codes: D64.9 - Anemia, unspecified Condition: Fair Referrals: NO PRIMARY CARE PROVIDER (PCP) Critical Care Note Critical Care Note The very real possibility of a deterioration of this patient's condition required the highest level of my preparedness for sudden, emergent intervention. I provided critical care services, which included medication orders, frequent reevaluations of the patient's condition and response to treatment, ordering and reviewing test results, and discussing the case with necessary consultants. Critical care time was exclusive of necessary procedure time. The critical care time associated with the care of the patient was 40 minutes. Signature Scribe Signature: No Scribe Attestation: The note accurately reflects work and decisions made by me.Christine Abad NP 04/03/25 00:45 This note was created with the assistance of voice recognition software whereby errors in grammar, syntax, and/or spelling may have occurred despite active proofreading efforts by the author. Please do not hesitate to contact the provider for clarification or for questions regarding the content of this document. CHRISTINE JIMENEZ NP Apr 02, 2025 18:06
[2025-04-02] MEDS: morphine 4 MG/ML inj SYRINge IV ONE ×2 (18:23→21:20)
[2025-04-02] MEDS: octreotide inj. 500 MCG in normal saline 100ml IV soln 97.5 ML IV SCH (18:27)
[2025-04-02 18:28] LABS: OCCULT BLOOD STOOL POSITIVE (Neg)
[2025-04-02] MEDS: pantoprazole 40MG/NS 100ML BAG 100 ML IV SCH (19:00)
[2025-04-02] MEDS ORDERED: LISI5TAB22 PO (19:07)
[2025-04-02] MEDS ORDERED: magnesium hydroxide 30ml (MOM) UD suspension PO PRN (19:50)
[2025-04-02] MEDS ORDERED: potassium Cl 20 mEq SR tablet PO PRN (19:50)
[2025-04-02] MEDS ORDERED: mag hydrox/Alum hydrox/simeth 30ml oral suspension PO PRN (19:50)
[2025-04-02] MEDS ORDERED: magnesium Cl slow-release 64mg tablet PO PRN (19:50)
[2025-04-02] MEDS: K and/or MAG REPLACEMENT MC SCH (20:00)
[2025-04-02] MEDS: docusate sod 100mg capsule PO SCH (20:00)
[2025-04-02 20:14] LABS: ETHANOL 279 MG/DL (<10)
[2025-04-02 20:17] LABS: LEUKOCYTE ESTERASE ,URINE SMALL (Neg); NITRITES, URINE NEGATIVE (Neg); OCCULT BLOOD,URINE TRACE-INTACT (Neg)
[2025-04-02 20:17] LABS: APTT 26 SECONDS (22-32); INR 1.0 INR
[2025-04-02 20:22] LABS: URINE AMPHETAMINE SCREEN NEGATIVE (Neg); URINE BARBITUATE SCREEN NEGATIVE (Neg); URINE BENZODIAZEPINES SCREEN NEGATIVE (Neg); URINE CANNABINOID SCREEN NEGATIVE (Neg); URINE COCAINE SCREEN NEGATIVE (Neg); URINE METHADONE SCREEN NEGATIVE (Neg); URINE OPIATE SCREEN NEGATIVE (Neg); URINE PHENCYCLIDINE SCREEN NEGATIVE (Neg)
[2025-04-02 20:26] LABS: UA COLLECTION TYPE NON-SPECIFIED
[2025-04-02 20:27] LABS: SQUAMOUS EPITHELIAL CELL,UR NONE SEEN /LPF (FEW); WBC CLUMPS,URINE FEW /HPF (NEGATIVE)
[2025-04-02] MEDS ORDERED: haloperidol lactate 5mg/ml inj IM PRN (20:30)
--- NOTE | 2025-04-02 20:41 | HISTORY AND PHYSICAL-Residence ---
History & Physical Providers to CC Resident Creating Document: HUMBERTO DE LA GARZAOSVALDOMAN MÉNDEZ CC: FRANCISCA WALLACE MD ~ History of Present Illness Primary Medical Doctor: MAKI Reason for Admit\Complaint: Abdominal pain/bloody stools History of Present Illness Patient is a 54-year-old female with history of alcohol use disorder, hypertension, gastritis, peptic ulcer disease, recurrent GI bleeds, pelvic abscess and very complex gastrointestinal history with multiple abdominal surgeries last year by Dr Moreno who came to the ED for abdominal pain and bloody stools. Patient reports that 2 days ago she started with abdominal pain located in left upper quadrant, nonradiating, 9/10 in intensity, intermittent, and stabbing; accompanied by nausea and 5 episodes of vomiting containing water. In addition, she reports several episodes of blood per rectum for 2 days, about 2 cups at a time, 4 episodes per day, last episode today. Patient has never had a colonoscopy, and she has had multiple EGDs last one was this year, she does not recall banding of esophageal varices. Last year patient underwent multiple abdominal/gastric surgeries by Dr Moreno including but not limited to laparotomy, antrectomy with Colten-en-Y reconstruction, duodenal stump leak repair. Allergies: Coded Allergies: No Known Allergies (Unverified , 02/21/24) Home Medications Home Medications Active Pantoprazole Sodium 40 Mg Tablet. 40 Mg PO BID 30 Days Reported Lisinopril 5 Mg Tablet 1 Tab PO DAILY Past Medical History Past Medical History Alcohol use disorder Hypertension Gastritis Peptic ulcer disease Recurrent GI bleeds Pelvic abscess Very complex gastrointestinal history with multiple surgeries Past Surgical History Surgical History Comment Multiple abdominal surgeries, most recently last year Hysterectomy, 2009 , 1997 Left hip replacement, 11/2024 Family History Family History: FH: multiple endocrine neoplasia (MEN) syndrome brother (MEN II) MEN (multiple endocrine neoplasia) Past Social History Smoking: Other (Vape) Alcohol Use: Alcoholic Drug Use: None Lives with: Spouse Lives In: Home Occupation: disabled ROS ROS All systems were reviewed except for pertinent positives mentioned in HPI Exam Vitals: Vital Signs Date Time Temp Pulse Resp B/P (MAP) Pulse Ox O2 Delivery O2 Flow Rate FiO2 04/02/25 19:40 117 19 143/96 (112) 97 04/02/25 17:00 97.7 0 General: General: awake, alert oriented to place, time, and person HEENT: Marked pallor present, no icterus, dry mucous membranes Neck: No masses and tenderness Resp: Unlabored. Lungs clear to auscultation bilaterally. Chest: Normal expansion Cardiovascular: Regular Rate and rhythm, normal S1 and S2 without murmur, rub or gallop Abdomen: Soft and significantly tender to palpation in left upper quadrant. Midline well-healed skin graft, no organomegaly, no guarding and rigidity, hyperactive bowel sounds Neuro: No focal weakness in the upper and lower limb muscles, power of the muscles 5/5 bilateral upper and lower extremities, normal reflexes bilaterally. Cranial nerves intact Extremities: No cyanosis,clubbing or edema Skin: Warm and Dry Psych: Normal affect Diagnostic Data Last Recorded Lab Results: 04/02/25 1645 04/02/25 1645 Diagnostic Data: Laboratory Tests Test 04/02/25 16:45 Prothrombin Time 9.8 SECONDS (9.0-12.0) INR International Normalized Ratio 1.0 INR Activated Partial Thromboplast Time 26 SECONDS (22-32) Coagulation Comments Advance Care Planning Advanced Care plannin - 30 Minutes Additional Plan Patient is a 54-year-old female with history of alcohol use disorder, hypertension, gastritis, peptic ulcer disease, recurrent GI bleeds, pelvic abscess and very complex gastrointestinal history with multiple abdominal surgeries last year by Dr Moreno who came to the ED for abdominal pain and bloody stools. Admitted for evaluation and management of GI bleed and severe blood loss anemia. GI bleed, likely lower Abdominal pain, rule out SBO History of recurrent upper GI bleeds History of peptic ulcer disease Multiple abdominal surgeries including laparotomy, antrectomy with Colten-en-Y reconstruction, duodenal stump leak repair Patient is tachycardic and initially hypotensive but currently hemodynamically stable Last EGD in our facility in Aug showed peptic ulcer. She posteriorly underwent above mentioned surgeries Received aggressive hydration in ED Was started on octreotide in ED. Will continue for now although appears to be lower GI bleed Continue Protonix drip started in ED Started on IV NS at 100 cc/hour Pending abdomen/pelvis CT with IV and oral contrast Will consult GI and surgery Keep NPO for now Discussed in detail with Dr Wallace who recommended switching fluids to lactated ringers Severe microcytic anemia, likely 2/2 blood loss Hypovolemic shock, improved Hemoglobin is 7.2 2 unit of PRBC ordered IV fluids as above Will continue to monitor H&H Sepsis, likely abdominal source Asymptomatic bacteriuria History of pelvic abscess in December of 2023 WBC 17, lactic acid 6, procalcitonin is normal UA is positive for infection. Patient denies urinary symptoms Chest x-ray is unremarkable Start Zosyn Pending CT as above Pending blood cultures Lactic acidosis Mild hyponatremia Pending ABG lactic acid is 6, 3.5 Continue monitoring CMP IV fluids as above Discussed in detail with Dr Wallace who recommended start on Bicarb 2 amp as a IV push ---not a in another infusion. Alcohol use disorder History of alcohol withdrawals Significantly elevated ETOH level Tox screen otherwise negative Will place in alcohol withdrawal protocol administrative services specialist and substance abuse navigator consulted Code Status: DNR DVT prophylaxis: None in view of GI bleed Analgesia/sedation: Morphine GI prophylaxis: Protonix Nutrition: NPO PT: Ordered Prognosis: Guarded Disposition: Admit to PCU with tele monitoring. Continue medical management Man Miles MD Internal Medicine Resident PGY-2 I saw and discussed the case with Dr Miles I suggested giving IVF Lactated ringers in view of her acidosis and to also give 2 ampoules of NaHCO3 ---equivalent to 100meq to help improve her metabolic acidosis as well. Continue Octreotide Continue Protonix Transfuse an extra unit of blood Check an ammonia level Await formal GI consultation Monitor very closely ---preferably in ICU but as no bed can manage in step down with very close monitoring Pt quite frail and critically ill. Date of Service: Apr 02, 2025 Billing Provider: FRANCISCA WALLACE MD, LEONARDO LUIS Apr 02, 2025 20:41 FRANCISCA WALLACE MD Apr 03, 2025 09:52
[2025-04-02] MEDS: ondansetron/PF 4mg/2ml inj IV PRN (21:04)
[2025-04-02] MEDS: thiamine 100mg/ml 2ml inj. IV SCH (21:07)
[2025-04-02] MEDS: normal saline 1000ml 1,000 ML IV SCH (21:10)
[2025-04-02 21:30] VITALS: BP 135/96; PULSE 108; RESP 20; TEMP 99.5
[2025-04-02] MEDS ORDERED: diatr meglu/diatrizoate 30ml oral sol.-(3 dose) bottle ONE (21:32)
[2025-04-02 21:45] VITALS: BP 151/96; PULSE 110; RESP 21; TEMP 99.6
[2025-04-02] MEDS: diatr meglu/diatrizoate 30ml oral sol.-(3 dose) bottle PO SCH (22:14)
[2025-04-02 22:16] VITALS: BP 136/93; PULSE 105; RESP 19; TEMP 98.5
[2025-04-02] MEDS ORDERED: iohexol 300mg/ml 100ml inj. ONE (22:32)
[2025-04-02 22:51] VITALS: BP 146/91; PULSE 110; RESP 21; TEMP 97.4
[2025-04-02] MEDS: normal saline 1000ml 1,000 ML IV STA (23:01)
--- NOTE | 2025-04-02 23:22 | RADIOLOGY REPORT ---
EXAM: DI CHEST,SINGLE VIEW TECHNIQUE: Single frontal chest radiograph CLINICAL HISTORY: Shortness of breath COMPARISON: DI CHEST,SINGLE VIEW on DOS: 10/16/23, DI CHEST,SINGLE VIEW on DOS: 10/06/23, DI CHEST,SINGL E VIEW on DOS: 10/04/23, DI CHEST,SINGLE VIEW on DOS: 10/03/23, DI CHEST,SINGLE VIEW on DOS: 10/02/23 FINDINGS/IMPRESSION: The lungs are clear. The cardiomediastinal silhouette is unremarkable. No pleural effusion or pneumo thorax. No acute osseous abnormality.
[2025-04-02 23:32] VITALS: BP 160/97; PULSE 103; RESP 21; TEMP 99.2
[2025-04-03] VITALS (11 sets, daily range): BP systolic 145–196; BP diastolic 92–119; PULSE 85–102; RESP 12–22; TEMP 97.3–98.6; O2SAT 95–98
[2025-04-03] MEDS: piperacillin/tazo 4.5gm/100ml 100 ML IV SCH (00:41)
[2025-04-03] MEDS: ringers solution, lacted 1,000 ML IV SCH (03:09)
[2025-04-03] MEDS: sodium bicarbonate (8.4%) inj. 1 MEQ/ML ML ONE ×2 (03:10→03:50)
[2025-04-03] MEDS: sodium bicarbonate (8.4%) inj. 100 MEQ in dextrose 5%-water 1,000 ML IV SCH (03:45)
--- NOTE | 2025-04-03 04:58 | RADIOLOGY REPORT ---
CHEST RADIOGRAPH Indication: CENTRAL LINE PLACEMENT Technique: 1 view Comparison: DI CHEST,SINGLE VIEW on DOS: 04/02/25, DI CHEST,SINGLE VIEW on DOS: 10/16/23, DI CHEST,SINGL E VIEW on DOS: 10/06/23, DI CHEST,SINGLE VIEW on DOS: 10/04/23, DI CHEST,SINGLE VIEW on DOS: 10/03/23 FINDINGS: Lines and Tubes: Intervally placed right IJ catheter terminating over the caudal SVC. Lungs/Pleura: No focal consolidation, pleural effusion or pneumothorax. Cardiomediastinum: Unremarkable. Other: No acute osseous abnormality. Right upper quadrant surgical clips. IMPRESSION: 1. Interval placement of a right IJ catheter adequately positioned. 2. No acute cardiopulmonary abnormality or other interval change.
--- NOTE | 2025-04-03 05:45 | RADIOLOGY REPORT ---
EXAM: CT CT ABDOMEN PELVIS W/ IV ORAL CONTRAST HISTORY: GI bleed COMPARISON: CT CT ABDOMEN PELVIS on DOS: 02/22/24, CT CT ABDOMEN PELVIS on DOS: 02/21/24, CT CT ABDOMEN PELVIS on DOS: 11/13/23, CT CT ABDOMEN PELVIS on DOS: 11/05/23, CT CT ABDOMEN PELVIS on DOS: 11/05/23 TECHNIQUE: Helical CT images of the abdomen and pelvis were performed with and without 100 mL omnipaq ue 300 IV contrast. Oral contrast was administered. Sagittal and coronal reformatted images were obta ined. This CT exam was performed using 1 or more of the following dose reduction techniques: Automate d exposure control, adjustment of the mA and/or kv according to patient size, or the use of iterative reconstruction techniques. Radiation Dose: Abdomen/Pelvis: CTDIvol 11.54 mGy, DLP 633.12 mGy*cm. FINDINGS: CT abdomen: The lung bases are clear. The heart is not enlarged. There are coronary artery calcificat ions in the LAD. There is ectasia of the central pulmonary arteries, not fully imaged here. The gallb ladder is surgically absent. There are multiple hepatic simple cysts. The liver measures 20 cm longit udinal. There is gas in the biliary tree. There are multiple hyperdense cysts in the bilateral kidne ys. The pancreatic head may be atrophic or surgically absent. The spleen and adrenal glands are unrem arkable. No abdominal aortic aneurysm or dissection. CT pelvis: There is low volume free fluid in the abdomen and pelvis. No free air. There are postoper ative changes gastric bypass is and probable postoperative changes of right hemicolectomy. There is a loop of dilated mid abdominal small bowel anteriorly demonstrating wall thickening. There is a small amount of gas in the nondependent portion of the urinary bladder lumen. The appendix and uterus are surgically absent. There are postoperative changes of left total hip arthroplasty. There is mild Lumb ar degenerative disc disease. There is mild Thoracolumbar dextroscoliosis. IMPRESSION: 1. Coronary artery disease. 2. Hepatomegaly with gas in the biliary tree suggestive of prior sphincterotomy. 3. Postoperative changes of cholecystectomy, hysterectomy, left total hip arthroplasty, gastric bypas s, and likely also right hemicolectomy. 4. Loop of small bowel in the anterior mid abdomen demonstrates dilatation and diffuse wall thickenin g, consistent with enteritis. There is associated low volume free fluid in the abdomen and pelvis. 5. Small amount of gas in the nondependent portion of the urinary bladder lumen which may be due to r ecent instrumentation or cystitis.
[2025-04-03] MEDS: ringers solution, lacted 1,000 ML IV STA (07:51)
[2025-04-03] MEDS: folic acid 1mg/0.2ml inj IV SCH (08:22)
[2025-04-03 08:36] LABS: MEAN PLATELET VOLUME 6.8 FL (7.4-10.4); RED CELL DISTRIBUTION WIDTH 20.3 % (11.5-14.5)
[2025-04-03] MEDS: multivitamins, therapeutics tablet PO SCH (08:37)
[2025-04-03 09:10] LABS: CREATININE 0.67 MG/DL (0.40-0.90); PHOSPHORUS 2.4 MG/DL (2.3-4.5); TOTAL CARBON DIOXIDE 26.5 MMOL/L (24-32); eCRCL 86 ML/MIN; eGFR > 90 ML/MIN
--- NOTE | 2025-04-03 09:35 | PROGRESS NOTE ---
Daily Progress Note Providers to CC ~ Antibiotic Timeout Antibiotic Ordered?: Yes Subjective No acute events overnight. Patient examined at bedside. No new complaints, not in any acute distress. Patient denies chest pain, sob, palpitations, n/v/d. Patient reports "dark stool" prior presentation. Vss, labs notable for normalized lactic acid and normalized bicarb after fluid resuscitation and continuous LR and bicarb drip. Received 2 units of PRBC and H/H stable. Consulted GI Dr. Skelton with plans for EGD and colonoscopy. Objective Vital Signs Date Time Temp Pulse Resp B/P (MAP) Pulse Ox O2 Delivery O2 Flow Rate FiO2 04/03/25 09:01 93 18 172/115 (134) 97 0 04/03/25 07:31 98.6 Result Diagram: 04/03/2581104/03/25 08 Physical Exam General: Generalized weakness, A&Ox 3, NAD HEENT: Normocephalic, PERRLA Neck: Supple, trachea midline, no JVD Chest: Clear to auscultation bilaterally Cardiovascular: RRR, S1&S2 GI: Tenderness of medial abdomen with palpation Extremities: No cyanosis/clubbing/or edema DINING ROOM COORDINATOR: CN II-XII intact, no focal deficits Musculoskeletal: No paraspinal muscle tenderness, no muscle spasm Skin: Warm and intact Coagulation Studies Laboratory Tests Test 04/02/25 16:45 Prothrombin Time 9.8 SECONDS (9.0-12.0) INR International Normalized Ratio 1.0 INR Activated Partial Thromboplast Time 26 SECONDS (22-32) Coagulation Comments Problem\\Assessment\\Plan Patient is a 54-year-old female with history of alcohol use disorder, hypertension, gastritis, peptic ulcer disease, recurrent GI bleeds, pelvic abscess and very complex gastrointestinal history with multiple abdominal surgeries last year by Dr Moreno who came to the ED for abdominal pain and dark tarry stool. Admitted for evaluation and management of GI bleed and severe blood loss anemia. GIB Abdominal pain, rule out SBO Metabolic acidosis Lactic acidosis Dehydration Alcohol intoxication Chronic alcoholism Hx recurrent UGIB Hx embolization of branch of the SMA for UGIB (09/12/23) Hx PUD Hx laparotomy, antrectomy with Colten-en-Y reconstruction, duodenal stump leak repair -04/03: lactic acid, bicarb normalized after fluid resuscitation & continuos LR -continued on octreotide, PPI, LR, abx, bicarb normalized after fluid resuscitation and bicarb drip, NPO; consulted GI with plans for EGD and colonoscopy -will do CTA for obscure bleeding if negative findings of upper/lower scope Anemia, microcytic Hypovolemic shock, improved -04/03: received 2 units PRBC, Hgb 7.5g/dL, follow iron studies, serial H/H Sepsis 2/2 UTI UTI Cystitis Enteritis History of pelvic abscess in December of 2023 -04/03: urine cx gram positive and negative, start vanco, continue Zosyn Code Status: DNR DVT/VTE Prophylaxis: SCDs Date of Service: Apr 03, 2025 Billing Provider: SHARLA VELA Common Visit Codes: [id number] INP/OBS CARE(HIGH) SHARLA VELA Apr 03, 2025 09:35
[2025-04-03 10:08] LABS: % IRON SATURATION 36 % (11-46)
[2025-04-03] MEDS: hydrALAZINE 20mg/ml inj. IV ONE (12:22)
[2025-04-03 15:58] LABS: MEAN PLATELET VOLUME 6.6 FL (7.4-10.4); RED CELL DISTRIBUTION WIDTH 20.2 % (11.5-14.5)
[2025-04-03] MEDS: PEG 3350/Na sulf,bicarb,Cl/KCl oral sol 4 liter bottle PO ONE (17:09)
[2025-04-03] MEDS: VANCOMYCIN/WATER FOR INJ (PEG) 1.5GM/300 ML IVPB IV ONE (17:09)
[2025-04-03] MEDS: hydrALAZINE 20mg/ml inj. IV PRN (20:03)
[2025-04-04] VITALS (25 sets, daily range): BP systolic 117–195; BP diastolic 59–120; PULSE 69–109; RESP 10–20; TEMP 97.6–99; O2SAT 93–100
[2025-04-04] MEDS: vancomycin/NS 1 GM ADD-VANTAGE 250 ML IV SCH (04:58)
[2025-04-04 09:22] LABS: MEAN PLATELET VOLUME 6.8 FL (7.4-10.4); RED CELL DISTRIBUTION WIDTH 21.0 % (11.5-14.5)
[2025-04-04] MEDS ORDERED: LIDOcaine 2% Viscous 15ml cup ONE (09:35)
[2025-04-04 09:37] LABS: CREATININE 0.56 MG/DL (0.40-0.90); PHOSPHORUS 2.3 MG/DL (2.3-4.5); TOTAL CARBON DIOXIDE 31.6 MMOL/L (24-32); eCRCL 103 ML/MIN; eGFR > 90 ML/MIN
[2025-04-04 10:05] LABS: PLATELET ESTIMATE NORMAL
[2025-04-04 10:06] LABS: ELLIPTOCYTES 1+
[2025-04-04] MEDS ORDERED: fentaNYL/PF 50MCG/1 ML 2ML syringe ONE ×2 (10:13)
[2025-04-04] MEDS ORDERED: MIDAZolam 1 MG/ML 5ML VIAL ONE ×2 (10:13→10:14)
[2025-04-04] MEDS ORDERED: propofol inj 20 ML IV ONE ×2 (10:35)
[2025-04-04] MEDS: magnesium sulf-water 2g/50mL 50 ML IV PRN (12:48)
[2025-04-04] MEDS: potassium Cl 40MEQ/1/2NS 520ml 520 ML IV PRN (12:48)
--- NOTE | 2025-04-04 12:56 | CONSULTATION REPORT - RESIDENT ---
Consult Providers to CC Resident Creating Document: BRIANDAYAHIREULOGIO MUNOZ RES History of Present Illness Reason for Admit\Complaint: Abdominal pain and blood in the stool History of Present Illness A 54-year-old female with past medical history of alcohol use disorder, hypertension, gastritis, peptic ulcer disease, recurrent GI bleeds, pelvic abscess and very complex gastrointestinal history with multiple abdominal surgeries last year by Dr Moreno who came to the ED with bloody stools and abdominal pain, She reports that she has few episodes of black tarry stools for the past 2 days, about 2 cups at a time, associated with abdominal pain, nausea, vomitings. She denies diarrhea, constipation, fever, weight loss, fatigue, dizziness, syncope. Patient reports that she has intermittent, stabbing type of abdominal pain in left upper quadrant, nonradiating, 9/10 in intensity from past 2 days accompanied by nausea and 5 episodes of vomitings. She denies blood in the vomiting. She denies any recent food intake outside, travel ,fevers. Patient has never had a colonoscopy, and she has had multiple EGDs , last one was this year, she does not recall banding of esophageal varices. Allergies: Coded Allergies: No Known Allergies (Unverified , 02/21/24) Home Medications Home Medications Active Pantoprazole Sodium 40 Mg Tablet. 40 Mg PO BID 30 Days Reported Lisinopril 5 Mg Tablet 1 Tab PO DAILY Past Medical History Past Medical History Gastritis Peptic ulcer disease Recurrent GI bleeds Alcohol use disorder Hypertension Pelvic abscess Very complex gastrointestinal history with multiple surgeries Past Surgical History Surgical History Comment Antrectomy with Colten-en-Y reconstruction, duodenal stump leak repair by whipple procedure, 2023. Hysterectomy, 2009 , 1998 Left hip replacement, 11/2024 Family History Family History: FH: heart disease MOTHER FH: multiple endocrine neoplasia (MEN) syndrome FATHER brother (MEN II) MEN (multiple endocrine neoplasia) Past Social History Social History Comment Smokes vapes occasionally. Alcoholic, drinks 400-700 mL of whiskey frequently from past 20 years Denies any recreational drug use She lives with his spouse at home ROS ROS Constitutional: No fever, chills, dizziness, weight gain or loss Eyes: No pain, erythema, discharge, blurring of vision ENT: No sore throat, epistaxis, tinnitus Cardiovascular:No chest pain, palpitations, syncope, lower extremity edema, paroxysmal nocturnal dyspnea Respiratory: No Shortness of breath and cough, No hemoptysis. Gastrointestinal:Reports Abdominal pain, vomiting,nausea and melena. Normal appetite. No constipation,diarrhea, hematemesis, Musculoskeletal: No swelling or edema of extremities. Integumentary: No change in skin, hair, nails. No swelling, bruising, abrasions Neurologic: No weakness,No headache, neck pain, numbness or tingling of the extremities, Psychiatric: No delusions, depression, loss of interest in normal activity or change in sleep pattern, hallucinations, suicidal ideations Endocrine: No fatigue, no weakness. polydipsia, polyuria, change in appetite, heat or cold intolerance, sweating, dry skin Hematological: No bleeding, petechiae, bruising Allergies: No asthma or urticaria Exam Vitals: Vital Signs Date Time Temp Pulse Resp B/P (MAP) Pulse Ox O2 Delivery O2 Flow Rate FiO2 04/04/25 12:05 69 04/04/25 11:50 12 195/114 100 Nasal Cannula 3.0 04/04/25 06:00 99.0 General: Awake , alert and oriented to time,place, person, in mild distress HEENT: Atraumatic, normocephalic, PEERLA, anicteric sclera ; pink conjunctiva Neck: Trachea midline. Supple, normal range of motion, no JVD Cardiac: S1, S2 heard,Regular rate and rhythm, no murmurs heard. Chest and Respiratory: Equal breath sounds bilaterally, no tachypnea, wheezing and ronchi .Chest wall is symmetric and without deformity. Abdomen: Soft, pain and tenderness in left upper quadrant, No guarding or rigidity, Sow's sign negative. normal bowel sounds x4 quadrant, Midline well-healed skin graft, no hepatosplenomegaly MSK: Range of motion of all extremities are normal. There is no joint pain or joint swelling or joint erythema. There is no muscle pain or tenderness or swelling. Extremities: warm, well-perfused, No cyanosis, clubbing, 2+ pulses felt Neurological: Speech is clear, alert, and oriented x 4. No sensory or motor deficits. Cranial nerves II-XII intact. Skin: Warm and dry Psychiatry: Affect and mood are normal Diagnostic Data Last Recorded Lab Results: 04/04/25 0855 04/04/25 0855 Diagnostic Data: Laboratory Tests Test 04/02/25 16:45 Prothrombin Time 9.8 SECONDS (9.0-12.0) INR International Normalized Ratio 1.0 INR Activated Partial Thromboplast Time 26 SECONDS (22-32) Coagulation Comments Additional Plan A 54-year-old female with history of alcohol use disorder, hypertension, gastritis, peptic ulcer disease, recurrent GI bleeds, pelvic abscess and very complex gastrointestinal history with multiple abdominal surgeries last year by Dr Moreno who came to the ED for abdominal pain and bloody stools. Admitted for evaluation and management of GI bleed and severe blood loss anemia. Abdomen pain and melena. Possibly secondary to upper GI bleed. ruled out SBO. History of recurrent upper GI bleed. History of peptic ulcer disease S/P Multiple abdominal surgeries including laparotomy, antrectomy with Colten-en-Y reconstruction, duodenal stump leak repair CT abdomen showed: - Postoperative changes of cholecystectomy, hysterectomy, left total hip arthroplasty, gastric bypass, and likely also right hemicolectomy. -Loop of small bowel in the anterior mid abdomen demonstrates dilatation and diffuse wall thickening, consistent with enteritis. - H&H are 7.4 and 22.4 with MCV 77.6 after 2 units of RBC transfusion -Follow up with iron studies. -Patient is hemodynamically stable -Continue on IV octreotide. -On IV Protonix 40 mg b.i.d. daily -continue on IV ringer lactate the rate of 100 mL/hour - planned for EGD and colonoscopy today. Metabolic acidosis Lactic acidosis Dehydration Alcohol intoxication Chronic alcoholism Hx recurrent UGIB Hx embolization of branch of the SMA for UGIB (09/12/23) Hx PUD Hx laparotomy, antrectomy with Colten-en-Y reconstruction, duodenal stump leak repair -continue management as per primary team Code Status: DNR DVT prophylaxis: SCD Analgesia/sedation: Morphine GI prophylaxis: IV Protonix Prognosis: Guarded Disposition: Patient admitted with abdominal pain and bloody stools with possible upper GI bleeding. Planned for EGD and colonoscopy today. Marla Toney MD Internal Medicine Resident, PGY-1 Date of Service: Apr 04, 2025 Billing Provider: CHUCKY DANG MD, SUNIL KUMAR, RES Apr 04, 2025 12:56 CHUCKY DANG MD Apr 04, 2025 16:32
--- NOTE | 2025-04-04 14:12 | PROGRESS NOTE ---
Daily Progress Note Providers to CC ~ Antibiotic Timeout Antibiotic Ordered?: Yes Subjective No acute events overnight. Patient examined at bedside. No new complaints, not in any acute distress. Patient denies chest pain, sob, palpitations, n/v/d. Vss, labs notable for normalized lactic acid and normalized bicarb after fluid resuscitation and continuous LR and bicarb drip. H/H stable. EGD and colonoscopy today with normal findings, no bleeding. Nuclear GIB scan negative. Mildly hyponatremic with normalized bicarb and low Cl now hence LR changed to NS. Urine culture positive for Gram-positive cocci, Gram-negative rods. 1/2 blood cx positive culture. Objective Vital Signs Date Time Temp Pulse Resp B/P (MAP) Pulse Ox O2 Delivery O2 Flow Rate FiO2 04/04/25 13:15 13 146/96 (113) 97 Room Air 04/04/25 12:45 88 04/04/25 12:30 98.2 04/04/25 12:12 0.0 Result Diagram: 04/04/25 0855 04/04/25 0855 Physical Exam General: Generalized weakness, A&Ox 3, NAD HEENT: Normocephalic, PERRLA Neck: Supple, trachea midline, no JVD Chest: Clear to auscultation bilaterally Cardiovascular: RRR, S1&S2 GI: Tenderness of medial abdomen with palpation Extremities: No cyanosis/clubbing/or edema ACCOUNT EXECUTIVE AGRIBUSINESS: CN II-XII intact, no focal deficits Musculoskeletal: No paraspinal muscle tenderness, no muscle spasm Skin: Warm and intact Coagulation Studies Laboratory Tests Test 04/02/25 16:45 Prothrombin Time 9.8 SECONDS (9.0-12.0) INR International Normalized Ratio 1.0 INR Activated Partial Thromboplast Time 26 SECONDS (22-32) Coagulation Comments Problem\Assessment\Plan Patient is a 54-year-old female with history of alcohol use disorder, hypertension, gastritis, peptic ulcer disease, recurrent GI bleeds, pelvic abscess and very complex gastrointestinal history with multiple abdominal surgeries last year by Dr Moreno who came to the ED for abdominal pain and dark tarry stool. Admitted for evaluation and management of GI bleed and severe blood loss anemia. 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 Anemia, microcytic Hypovolemic shock, improved -04/03: received 2 units PRBC, Hgb 7.5g/dL, iron studies wnl Sepsis 2/2 UTI UTI Cystitis Enteritis History of pelvic abscess in December of 2023 -04/03: urine cx gram positive and negative, start vanco, continue Zosyn -04/04: Urine culture positive for Gram-positive cocci, Gram-negative rods. 1/2 blood cx positive culture. Code Status: DNR DVT/VTE Prophylaxis: SCDs Date of Service: Apr 04, 2025 Billing Provider: SHARLA VELA Common Visit Codes: [id number] INP/OBS CARE(HIGH) SHARLA VELA Apr 04, 2025 14:12
[2025-04-04] MEDS: normal saline 1000ml 1,000 ML IV SCH (14:23)
[2025-04-04] MEDS: magnesium sulf-water 4G/100mL 100 ML IV PRN (15:08)
--- NOTE | 2025-04-04 17:57 | RADIOLOGY REPORT ---
EXAM: [facility] GI BLOOD LOSS SCAN COMPARISON: [facility] GI BLOOD LOSS SCAN on DOS: 09/11/23 CLINICAL INDICATION: obscure bleed TECHNIQUE: 27.8 mCi tagged RBC with technetium 99 M were administered. An immediate flow study was pe rformed. Static images were then obtained at 5 minute intervals up to 60 minutes following the infusi on of the tracer. FINDINGS: There is no abnormal tracer activity in the abdomen or pelvis to suggest an actively bleeding site. The patient could be re-imaged within a 12 hour timeframe from the injection of the tracer, in the ev ent active bleeding reoccurs. IMPRESSION: There is no evidence of an actively bleeding site in the abdomen or pelvis.
[2025-04-04] MEDS ORDERED: iohexol 300mg/ml 100ml inj. ONE (19:42)
[2025-04-05] VITALS (8 sets, daily range): BP systolic 119–156; BP diastolic 43–95; PULSE 73–98; RESP 13–21; TEMP 97.4–98.9; O2SAT 91–99
[2025-04-05 03:31] LABS: MEAN PLATELET VOLUME 6.5 FL (7.4-10.4); RED CELL DISTRIBUTION WIDTH 21.3 % (11.5-14.5)
[2025-04-05 03:48] LABS: CREATININE 0.50 MG/DL (0.40-0.90); PHOSPHORUS 2.8 MG/DL (2.3-4.5); TOTAL CARBON DIOXIDE 31.1 MMOL/L (24-32); eCRCL 116 ML/MIN; eGFR > 90 ML/MIN
[2025-04-05] MEDS: VANCOMYCIN LEVEL IV ONE (05:07)
[2025-04-05] MEDS: potassium Cl 20 mEq SR tablet PO PRN (08:18)
--- NOTE | 2025-04-05 11:43 | PROGRESS NOTE- Residence ---
Progress Note - Resident Providers to CC Resident Creating Document: YAHIR TONEY RES ~ Antibiotic Timeout Antibiotic Ordered?: Yes Subjective Patient was seen and examined at bedside. Patient complains of abdomen pain and tenderness, nausea better than yesterday. Patient denies vomitings, chest pain, fever, chills, dizziness. No acute overnight events. No new complaints, patient is in mild distress Objective Vital Signs Date Time Temp Pulse Resp B/P (MAP) Pulse Ox O2 Delivery O2 Flow Rate FiO2 04/05/25 11:04 144/89 (107) 98 Room Air 04/05/25 10:51 13 04/05/25 08:00 90 04/05/25 06:00 98.9 04/04/25 12:12 0.0 Result Diagram: 04/05/25 03104/05/25 031 Awake , alert and oriented to time,place, person, in mild distress HEENT: Atraumatic, normocephalic, PEERLA, anicteric sclera ; pink conjunctiva Neck: Trachea midline. Supple, normal range of motion, no JVD Cardiac: S1, S2 heard,Regular rate and rhythm, no murmurs heard. Chest and Respiratory: Equal breath sounds bilaterally, no tachypnea, wheezing and ronchi .Chest wall is symmetric and without deformity. Abdomen: Soft, pain and tenderness in left upper quadrant, No guarding or rigidity, Sow's sign negative. normal bowel sounds x4 quadrant, Midline well-healed skin graft, no hepatosplenomegaly MSK: Range of motion of all extremities are normal. There is no joint pain or joint swelling or joint erythema. There is no muscle pain or tenderness or swelling. Extremities: warm, well-perfused, No cyanosis, clubbing, 2+ pulses felt Neurological: Speech is clear, alert, and oriented x 4. No sensory or motor deficits. Cranial nerves II-XII intact. Skin: Warm and dry Psychiatry: Affect and mood are normal Coagulation Studies Laboratory Tests Test 04/02/25 16:45 Prothrombin Time 9.8 SECONDS (9.0-12.0) INR International Normalized Ratio 1.0 INR Activated Partial Thromboplast Time 26 SECONDS (22-32) Coagulation Comments Plan Plan A 54-year-old female with history of alcohol use disorder, hypertension, gastritis, peptic ulcer disease, recurrent GI bleeds, pelvic abscess and very complex gastrointestinal history with multiple abdominal surgeries last year by Dr Moreno who came to the ED for abdominal pain and bloody stools. Admitted for evaluation and management of GI bleed and severe blood loss anemia. Abdomen pain and melena. Possibly secondary to upper GI bleed. ruled out SBO. History of recurrent upper GI bleed. History of peptic ulcer disease S/P Multiple abdominal surgeries including laparotomy, antrectomy with Colten-en-Y reconstruction, duodenal stump leak repair CT abdomen showed: - Postoperative changes of cholecystectomy, hysterectomy, left total hip arthroplasty, gastric bypass, and likely also right hemicolectomy. -Loop of small bowel in the anterior mid abdomen demonstrates dilatation and diffuse wall thickening, consistent with enteritis. - H&H are 7.4 and 22.4 with MCV 77.6 after 2 units of RBC transfusion -Patient is hemodynamically stable -Continue on IV octreotide. -On IV Protonix 40 mg once daily -continue on IV ringer lactate the rate of 100 mL/hour - EGD showed that the gastrojejunal anastomosis was characterized by extensive ulceration of stoma with adherent clots seen, biopsies obtained, awaiting for pathology report . -colon appeared normal and anastomosis appeared normal on colonoscopy. Patient advised to repeat colonoscopy in 10 years for screening purposes. 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 EGD showed extensive ulceration of stoma at gastrojejunal anastomosis. Awaiting for pathology reports. Marla Toney MD Internal Medicine Resident, PGY-1 Date of Service: Apr 05, 2025 Billing Provider: CHUCKY DANG MD, SUNIL KUMAR, RES Apr 05, 2025 11:43
[2025-04-05] MEDS ORDERED: diazepam inj 5 MG/ML inj. IV PRN (12:00)
--- NOTE | 2025-04-05 19:35 | PROGRESS NOTE ---
Daily Progress Note Providers to CC ~ Antibiotic Timeout Antibiotic Ordered?: Yes Subjective Patient was seen in presence of nursing staff patient is still having subjective pain over abdomen. She did admitted that she has chronic pain syndrome follows by primary care physician. Antibiotic adjusted based on culture sensitivity report. Objective Vital Signs Date Time Temp Pulse Resp B/P (MAP) Pulse Ox O2 Delivery O2 Flow Rate FiO2 04/05/25 18:35 15 04/05/25 18:00 97.4 96 147/86 (106) 98 Room Air 04/04/25 12:12 0.0 Result Diagram: 04/05/25 0310 04/05/25 031 General-patient not in any acute distress, alert awake oriented, chronically ill-appearing HEENT-atraumatic normocephalic, neck supple without elevated JVD, no thyromegaly or carotid bruit. No lymphadenopathy bilaterally. Eyes-no icterus or pallor seen in eyes Chest-clear to auscultation bilaterally, breathing nonlabored no tachypnea, no wheezing, no crepitation, no crackles. Heart-S1-S2 normal, regular heart rate no murmur Abdomen - normal bowel sounds positive on auscultation, soft nondistended , signs of subjective tenderness present on palpation over upper abdomen, old healed wound present in midline, no guarding, no rigidity Skin no active skin rash, old healed wound present in midline, Neurology-grossly intact, nonfocal alert awake oriented Extremity- no pedal edema able to move all 4 extremities Psychiatry - patient is not confused or agitated cooperated during physical examination Coagulation Studies Laboratory Tests Test 04/02/25 16:45 Prothrombin Time 9.8 SECONDS (9.0-12.0) INR International Normalized Ratio 1.0 INR Activated Partial Thromboplast Time 26 SECONDS (22-32) Coagulation Comments Problem\Assessment\Plan Patient is a 54-year-old female with history of alcohol use disorder, hypertension, gastritis, peptic ulcer disease, recurrent GI bleeds, pelvic abscess and very complex gastrointestinal history with multiple abdominal surgeries last year by Dr Moreno who came to the ED for abdominal pain and dark tarry stool. Admitted for evaluation and management of GI bleed and severe blood loss anemia. 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 April 05, 2025- She did admitted that she has chronic pain syndrome follows by primary care physician. Patient was taking oxycodone, cyclobenzaprine tramadol hydrocodone-acetaminophen, gabapentin in outpatient setting according to her external medication list. Antibiotic adjusted based on culture sensitivity report. Anemia, microcytic Hypovolemic shock, improved -04/03: received 2 units PRBC, Hgb 7.5g/dL, iron studies wnl Hypokalemia we will do the replacement of potassium as per protocol Sepsis 2/2 UTI UTI Cystitis Enteritis History of pelvic abscess in December of 2023 -04/03: urine cx gram positive and negative, start vanco, continue Zosyn -04/04: Urine culture positive for Gram-positive cocci, Gram-negative rods. 1/2 blood cx positive culture. Code Status: DNR DVT/VTE Prophylaxis: SCDs Patient's current condition is guarded we will continue to follow patient in a.m. needs physical therapy evaluation tomorrow Date of Service: Apr 05, 2025 Billing Provider: BLANCA PADILLA MD Common Visit Codes: [id number] INP/OBS CARE(HIGH) BLANCA PADILLA MD Apr 05, 2025 19:35
[2025-04-05] MEDS: pantoprazole 40mg Tablet.DR PO SCH (21:05)
[2025-04-05] MEDS: ciprofloxacin lact 400MG/200ML 200 ML IV SCH (21:06)
[2025-04-06] VITALS (9 sets, daily range): BP systolic 135–156; BP diastolic 84–92; PULSE 69–97; RESP 13–22; TEMP 97.4–98.8; O2SAT 71–98
[2025-04-06 03:43] LABS: MEAN PLATELET VOLUME 6.8 FL (7.4-10.4); RED CELL DISTRIBUTION WIDTH 20.6 % (11.5-14.5)
[2025-04-06 03:58] LABS: CREATININE 0.60 MG/DL (0.40-0.90); PHOSPHORUS 2.9 MG/DL (2.3-4.5); TOTAL CARBON DIOXIDE 27.8 MMOL/L (24-32); eCRCL 96 ML/MIN; eGFR > 90 ML/MIN
[2025-04-06 06:18] LABS: MEAN PLATELET VOLUME 7.1 FL (7.4-10.4); RED CELL DISTRIBUTION WIDTH 20.5 % (11.5-14.5)
--- NOTE | 2025-04-06 09:39 | PROGRESS NOTE- Residence ---
Progress Note - Resident Providers to CC Resident Creating Document: YAHIR TONEY RES ~ Antibiotic Timeout Antibiotic Ordered?: Yes Subjective Patient was seen and examined at bedside. Patient complains still having pain over abdomen. Patient denies vomiting, chest pain, fever, chills, dizziness. No acute overnight events. Patient denies any other concerns or complaints at the moment. Objective Vital Signs Date Time Temp Pulse Resp B/P (MAP) Pulse Ox O2 Delivery O2 Flow Rate FiO2 04/06/25 08:26 14 04/06/25 08:08 69 04/06/25 08:00 94 Room Air 04/06/25 02:00 98.6 148/88 (108) 04/04/25 12:12 0.0 Result Diagram: 04/06/25 0530 04/06/25 0300 Awake , alert and oriented to time,place, person, chronically ill-appearing, not in acute distress HEENT: Atraumatic, normocephalic, PEERLA, anicteric sclera ; pink conjunctiva Neck: Trachea midline. Supple, normal range of motion, no JVD Cardiac: S1, S2 heard,Regular rate and rhythm, no murmurs heard. Chest and Respiratory: Equal breath sounds bilaterally, no tachypnea, wheezing and ronchi .Chest wall is symmetric and without deformity. Abdomen: Soft, tenderness on palpation over upper abdomen, No guarding or rigidity, Sow's sign negative. normal bowel sounds x4 quadrant, Midline well-healed skin graft, no hepatosplenomegaly MSK: Range of motion of all extremities are normal. There is no joint pain or joint swelling or joint erythema. There is no muscle pain or tenderness or swelling. Extremities: warm, well-perfused, No cyanosis, clubbing, 2+ pulses felt Neurological: Speech is clear, alert, and oriented x 4. No sensory or motor deficits. Cranial nerves II-XII intact. Skin: Warm and dry Psychiatry: Affect and mood are normal Coagulation Studies Laboratory Tests Test 04/02/25 16:45 Prothrombin Time 9.8 SECONDS (9.0-12.0) INR International Normalized Ratio 1.0 INR Activated Partial Thromboplast Time 26 SECONDS (22-32) Coagulation Comments Plan Plan A 54-year-old female with history of alcohol use disorder, hypertension, gastritis, peptic ulcer disease, recurrent GI bleeds, pelvic abscess and very complex gastrointestinal history with multiple abdominal surgeries last year by Dr Moreno who came to the ED for abdominal pain and bloody stools. Patient underwent endoscopy and colonoscopy. Abdomen pain and melena secondary to GI bleed from Small bowel ulcer Severe microcytic normochromic anemia ruled out SBO. History of recurrent upper GI bleed. History of peptic ulcer disease S/P Multiple abdominal surgeries including laparotomy, antrectomy with Colten-en-Y reconstruction, duodenal stump leak repair CT abdomen showed: - Postoperative changes of cholecystectomy, hysterectomy, left total hip arthroplasty, gastric bypass, and likely also right hemicolectomy. - EGD showed that the gastrojejunal anastomosis was characterized by extensive ulceration of stoma with adherent clots seen, biopsies obtained. EGD pathology report showed : Ulcerated small bowel mucosa. Negative for H. Pylori Negative for Dysplasia or Malignancy. -Colon appeared normal and anastomosis appeared normal on colonoscopy. Patient advised to repeat colonoscopy in 10 years for screening purposes. - H&H are 6.9 and 20.7 with MCV 79.2 after 2 units of RBC transfusion - Transfuse PRBC if hemoglobin level is less than 7 -monitor H and H q.6.h -Patient is hemodynamically stable -continue On IV Protonix 40 mg b.i.d. 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 EGD showed extensive ulceration of stoma at gastrojejunal anastomosis. Pathology report showed ulcerated small bowel mucosa and negative for dysplasia, malignancy and H pylori. Patient was advised to follow up with outpatient management. Marla Toney MD Internal Medicine Resident, PGY-1 Date of Service: Apr 06, 2025 Billing Provider: CHUCKY DANG MD, SUNIL KUMAR, RES Apr 06, 2025 09:39
--- NOTE | 2025-04-06 19:45 | PROGRESS NOTE ---
Daily Progress Note Providers to CC ~ Antibiotic Timeout Antibiotic Ordered?: Yes Subjective The patient did not feel well today and continues to have generalized abdominal discomfort. The patient we will need transfused and a unit of packed red blood cells as hemoglobin has dropped to 6.9 today Objective Vital Signs Date Time Temp Pulse Resp B/P (MAP) Pulse Ox O2 Delivery O2 Flow Rate FiO2 04/06/25 17:55 165 04/06/25 17:51 15 04/06/25 15:00 98.2 156/92 (113) 94 Room Air 04/04/25 12:12 0.0 Result Diagram: 04/06/25 0530 04/06/25 0300 Gen. No acute distress alert and oriented 4 Lungs clear to ascultation bilaterally, no wheezes rales or rhonchi appreciated Heart normal sinus rhythm no murmurs rubs or clicks noted Abdomen soft nontender bowel sounds are normoactive Lower extremities no clubbing cyanosis, nor edema appreciated bilaterally Coagulation Studies Laboratory Tests Test 04/02/25 16:45 Prothrombin Time 9.8 SECONDS (9.0-12.0) INR International Normalized Ratio 1.0 INR Activated Partial Thromboplast Time 26 SECONDS (22-32) Coagulation Comments Problem\Assessment\Plan Patient is a 54-year-old female with history of alcohol use disorder, hypertension, gastritis, peptic ulcer disease, recurrent GI bleeds, pelvic abscess and very complex gastrointestinal history with multiple abdominal surgeries last year by Dr Moreno who came to the ED for abdominal pain and dark tarry stool. Admitted for evaluation and management of GI bleed and severe blood loss anemia. 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 April 05, 2025- She did admitted that she has chronic pain syndrome follows by primary care physician. Patient was taking oxycodone, cyclobenzaprine tramadol hydrocodone-acetaminophen, gabapentin in outpatient setting according to her external medication list. Antibiotic adjusted based on culture sensitivity report. Anemia, microcytic Hypovolemic shock, improved -04/03: received 2 units PRBC, Hgb 7.5g/dL, iron studies wnl -04/06 hemoglobin dropped to 6.9 today and the patient has a will be transfused 2 units of packed red blood cells Hypokalemia we will do the replacement of potassium as per protocol Sepsis 2/2 UTI UTI Cystitis Enteritis History of pelvic abscess in December of 2023 -04/03: urine cx gram positive and negative, start vanco, continue Zosyn -04/04: Urine culture positive for Gram-positive cocci, Gram-negative rods. 1/2 blood cx positive culture. -04/06 one of two blood cultures grew out staph epi does that is contaminant, urine culture grew out Klebsiella E coli and Enterococcus all sensitive to ciprofloxacin and levofloxacin- the patient remains on IV Cipro Code Status: DNR DVT/VTE Prophylaxis: SCDs Disposition: Discharged home when medically stable Date of Service: Apr 06, 2025 Billing Provider: LITO CANELA DO Common Visit Codes: [id number] INP/OBS CARE(HIGH) LITO CANELA DO Apr 06, 2025 19:45
[2025-04-06 20:38] LABS: MEAN PLATELET VOLUME 7.0 FL (7.4-10.4); RED CELL DISTRIBUTION WIDTH 20.0 % (11.5-14.5)
[2025-04-07] VITALS (8 sets, daily range): BP systolic 122–158; BP diastolic 77–97; PULSE 68–88; RESP 10–19; TEMP 97.4–98.7; O2SAT 94–98
[2025-04-07 06:01] LABS: MEAN PLATELET VOLUME 7.0 FL (7.4-10.4); RED CELL DISTRIBUTION WIDTH 20.2 % (11.5-14.5)
[2025-04-07 06:23] LABS: CREATININE 0.54 MG/DL (0.40-0.90); PHOSPHORUS 3.6 MG/DL (2.3-4.5); TOTAL CARBON DIOXIDE 27.7 MMOL/L (24-32); eCRCL 107 ML/MIN; eGFR > 90 ML/MIN
[2025-04-07] MEDS ORDERED: magnesium sulf-water 4G/100mL 100 ML IV PRN (08:45)
[2025-04-07] MEDS ORDERED: magnesium sulf-water 2g/50mL 50 ML IV PRN (08:45)
[2025-04-07] MEDS ORDERED: magnesium Cl slow-release 64mg tablet PO PRN (08:45)
[2025-04-07] MEDS ORDERED: potassium Cl 20 mEq SR tablet PO PRN (08:45)
[2025-04-07] MEDS ORDERED: potassium Cl 40MEQ/1/2NS 520ml 520 ML IV PRN (08:45)
[2025-04-07] MEDS: potassium Cl 20 mEq SR tablet PO PRN (10:03)
--- NOTE | 2025-04-07 11:57 | PROGRESS NOTE- Residence ---
Progress Note - Resident Providers to CC Resident Creating Document: YAHIR TONEY RES ~ Antibiotic Timeout Antibiotic Ordered?: Yes Subjective Patient was seen and examined at bedside. Patient complains still having pain over abdomen. Patient denies vomiting, chest pain, fever, chills, dizziness. No acute overnight events. Patient denies any other concerns or complaints at the moment. Objective Vital Signs Date Time Temp Pulse Resp B/P (MAP) Pulse Ox O2 Delivery O2 Flow Rate FiO2 04/07/25 10:02 14 04/07/25 08:40 82 04/07/25 06:00 98.2 138/79 (98) 96 04/06/25 22:00 Room Air 04/04/25 12:12 0.0 Result Diagram: 04/07/25 0520 04/07/25 0520 Awake , alert and oriented to time,place, person, chronically ill-appearing, not in acute distress HEENT: Atraumatic, normocephalic, PEERLA, anicteric sclera ; pink conjunctiva Neck: Trachea midline. Supple, normal range of motion, no JVD Cardiac: S1, S2 heard,Regular rate and rhythm, no murmurs heard. Chest and Respiratory: Equal breath sounds bilaterally, no tachypnea, wheezing and ronchi .Chest wall is symmetric and without deformity. Abdomen: Soft, tenderness on palpation over upper abdomen, No guarding or rigidity, Sow's sign negative. normal bowel sounds x4 quadrant, Midline well-healed skin graft, no hepatosplenomegaly MSK: Range of motion of all extremities are normal. There is no joint pain or joint swelling or joint erythema. There is no muscle pain or tenderness or swelling. Extremities: warm, well-perfused, No cyanosis, clubbing, 2+ pulses felt Neurological: Speech is clear, alert, and oriented x 4. No sensory or motor deficits. Cranial nerves II-XII intact. Skin: Warm and dry Psychiatry: Affect and mood are normal Coagulation Studies Laboratory Tests Test 04/02/25 16:45 Prothrombin Time 9.8 SECONDS (9.0-12.0) INR International Normalized Ratio 1.0 INR Activated Partial Thromboplast Time 26 SECONDS (22-32) Coagulation Comments Assessment Assessment A 54-year-old female with history of alcohol use disorder, hypertension, gastritis, peptic ulcer disease, recurrent GI bleeds, pelvic abscess and very complex gastrointestinal history with multiple abdominal surgeries last year by Dr Moreno who came to the ED for abdominal pain and bloody stools. EGD showed ulcer at the gastrojejunal anastomosis which is negative for dysplasia or malignancy. Plan Plan Abdomen pain and melena secondary to GI bleed from Small bowel ulcer Severe microcytic normochromic anemia Ruled out SBO. History of recurrent upper GI bleed. History of peptic ulcer disease S/P Multiple abdominal surgeries including laparotomy, antrectomy with Colten-en-Y reconstruction, duodenal stump leak repair CT abdomen showed: - Postoperative changes of cholecystectomy, hysterectomy, left total hip arthroplasty, gastric bypass, and likely also right hemicolectomy. - EGD showed that the gastrojejunal anastomosis was characterized by extensive ulceration of stoma with adherent clots seen, biopsies obtained. EGD pathology report showed : Ulcerated small bowel mucosa. Negative for H. Pylori Negative for Dysplasia or Malignancy. -Colon appeared normal and anastomosis appeared normal on colonoscopy. Patient advised to repeat colonoscopy in 10 years for screening purposes. - H&H are improving with PRBC transfusions. - Transfuse PRBC if hemoglobin level is less than 7 -monitor H and H q.6.h -Patient is hemodynamically stable -continue On IV Protonix 40 mg b.i.d. 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 EGD showed extensive ulceration of stoma at gastrojejunal anastomosis. Pathology report showed ulcerated small bowel mucosa and negative for dysplasia, malignancy and H pylori. Patient was advised to follow up with outpatient management. Marla Toney MD Internal Medicine Resident, PGY-1 Date of Service: Apr 07, 2025 Billing Provider: CHUCKY DANG MD, SUNIL KUMAR, RES Apr 07, 2025 11:57
--- NOTE | 2025-04-07 19:26 | PROGRESS NOTE ---
Daily Progress Note Providers to CC ~ Antibiotic Timeout Antibiotic Ordered?: Yes Subjective The patient continues to complain of abdominal pain however this is improving her hemoglobin has slightly downtrended today Objective Vital Signs Date Time Temp Pulse Resp B/P (MAP) Pulse Ox O2 Delivery O2 Flow Rate FiO2 04/07/25 18:00 17 04/07/25 15:00 97.9 77 122/77 (92) 96 Room Air 04/04/25 12:12 0.0 Result Diagram: 04/07/25 0520 04/07/25 0520 Gen. No acute distress alert and oriented 4 Lungs clear to ascultation bilaterally, no wheezes rales or rhonchi appreciated Heart normal sinus rhythm no murmurs rubs or clicks noted Abdomen soft moderate to significant generalized tenderness bowel sounds are normoactive Lower extremities no clubbing cyanosis, nor edema appreciated bilaterally Coagulation Studies Laboratory Tests Test 04/02/25 16:45 Prothrombin Time 9.8 SECONDS (9.0-12.0) INR International Normalized Ratio 1.0 INR Activated Partial Thromboplast Time 26 SECONDS (22-32) Coagulation Comments Problem\Assessment\Plan Patient is a 54-year-old female with history of alcohol use disorder, hypertension, gastritis, peptic ulcer disease, recurrent GI bleeds, pelvic abscess and very complex gastrointestinal history with multiple abdominal surgeries last year by Dr Moreno who came to the ED for abdominal pain and dark tarry stool. Admitted for evaluation and management of GI bleed and severe blood loss anemia. 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 April 05, 2025- She did admitted that she has chronic pain syndrome follows by primary care physician. Patient was taking oxycodone, cyclobenzaprine tramadol hydrocodone-acetaminophen, gabapentin in outpatient setting according to her external medication list. Antibiotic adjusted based on culture sensitivity report. Anemia, microcytic Hypovolemic shock, improved -04/03: received 2 units PRBC, Hgb 7.5g/dL, iron studies wnl -04/06 hemoglobin dropped to 6.9 today and the patient has a will be transfused 2 units of packed red blood cells -04/07 hemoglobin dropped slightly today from 10.7-9.9 continue monitor daily CBC Hypokalemia we will do the replacement of potassium as per protocol Sepsis 2/2 UTI UTI Cystitis Enteritis History of pelvic abscess in December of 2023 -04/03: urine cx gram positive and negative, start vanco, continue Zosyn -04/04: Urine culture positive for Gram-positive cocci, Gram-negative rods. 1/2 blood cx positive culture. -04/06 one of two blood cultures grew out staph epi does that is contaminant, urine culture grew out Klebsiella E coli and Enterococcus all sensitive to ciprofloxacin and levofloxacin- the patient remains on po Cipro Code Status: DNR DVT/VTE Prophylaxis: SCDs Disposition: Discharged home when medically stable Date of Service: Apr 07, 2025 Billing Provider: LITO CANELA DO Common Visit Codes: 94153-[id number] INP/OBS CARE(HIGH) LITO CANELA DO Apr 07, 2025 19:26
[2025-04-08 02:00] VITALS: BP 156/87; PULSE 66; RESP 14; TEMP 98.8; O2SAT 97
[2025-04-08 06:00] VITALS: BP 136/84; PULSE 70; RESP 16; TEMP 97.5; O2SAT 98
[2025-04-08 06:11] LABS: MEAN PLATELET VOLUME 7.1 FL (7.4-10.4); RED CELL DISTRIBUTION WIDTH 20.5 % (11.5-14.5)
[2025-04-08 06:21] LABS: CREATININE 0.49 MG/DL (0.40-0.90); TOTAL CARBON DIOXIDE 25.6 MMOL/L (24-32); eCRCL 118 ML/MIN; eGFR > 90 ML/MIN
[2025-04-08 07:00] LABS: EOSINOPHILS % (MANUAL) 2.0 % (0-6); LYMPHOCYTES % (MANUAL) 19.0 % (21-51); METAMYLEOCYTES% (MANUAL) 1.0 % (0-0); MONOCYTES % (MANUAL) 9.0 % (2-12); MYELOCYTES % (MANUAL) 2.0 % (0-0); NEUTROPHILS % (MANUAL) 67.0 % (42-75); PLATELET ESTIMATE NORMAL
[2025-04-08 07:01] LABS: ELLIPTOCYTES 1+
[2025-04-08 11:00] VITALS: BP 130/85; PULSE 60; RESP 14; TEMP 97.5; O2SAT 97
[2025-04-08] MEDS ORDERED: PANT40TA54 PO (13:46)
[2025-04-08] MEDS ORDERED: [UNRECOGNIZED DRUG - CODE] PO (13:46)
[2025-04-08] MEDS ORDERED: ACAM333T8 PO (13:46)
[2025-04-08] MEDS ORDERED: NOR5T PO (13:46)
[2025-04-08] MEDS ORDERED: SACC250C PO (13:46)
[2025-04-08] MEDS ORDERED: LISI20TA28 PO (13:46)
[2025-04-08] MEDS ORDERED: HYDR-3972 PO (13:48)
--- NOTE | 2025-04-08 19:34 | DISCHARGE SUMMARY ---
Discharge Summary Providers to CC ~ Discharge Summary Admission Diagnosis: GI Bleed Hospital Course DATE OF ADMISSION: 04/02/2025 DATE OF DISCHARGE: 04/08/2025 Discharge Diagnosis\\Comment: Metabolic acidosis Alcohol toxication/ use disorder Reoccurrence upper GI bleed with large ulceration of the gastric anastomosis Microcytic anemia Hypovolemic shock Sepsis secondary to UTI/cystitis Operations\\Procedures: EGD with biopsy Consultants: Dr. Skelton acid operator Complications: None Condition on DC: Stable New Medications: Acamprosate Calcium (Acamprosate Calcium) 333 Mg Tablet.dr 2 TAB PO Q8H for 30 Days, #180 TAB 0 Refills Hydrocodone Bit/Acetaminophen (Hydrocodon-Acetaminophn 10-325 tablet) 10mg- 325mg Tablet 1 EACH PO Q8H PRN for severe pain (7-10), #14 TAB Saccharomyces Boulardii (Florastor) 250 Mg Capsule 1 CAP PO Q12H for loose stool for 10 Days, #20 CAP 0 Refills Amlodipine Besylate (Amlodipine Besylate) 5 Mg Tablet 5 MG PO DAILY, #30 TAB Ciprofloxacin HCl (Ciprofloxacin HCl) 500 Mg Tablet 500 MG PO BIDQ, #4 TAB Lisinopril (Lisinopril) 20 Mg Tablet 20 MG PO DAILY, #30 TAB Continued Medications: Pantoprazole Sodium (Pantoprazole Sodium) 40 Mg Tablet.dr 40 MG PO BID for 30 Days, #60 TAB.SR (This prescription has been renewed) Discontinued Medications: Lisinopril (Lisinopril) 5 Mg Tablet 1 TAB PO DAILY Discharge Summary: The patient was admitted by resident [facility] , under the supervision of FRANCISCA Galindo MD with the following HPI:" Patient is a 54-year-old female with history of alcohol use disorder, hypertension, gastritis, peptic ulcer disease, recurrent GI bleeds, pelvic abscess and very complex gastrointestinal history with multiple abdominal surgeries last year by Dr Moreno who came to the ED for abdominal pain and bloody stools. Patient reports that 2 days ago she started with abdominal pain located in left upper quadrant, nonradiating, 9/10 in intensity, intermittent, and stabbing; accompanied by nausea and 5 episodes of vomiting containing water. In addition, she reports several episodes of blood per rectum for 2 days, about 2 cups at a time, 4 episodes per day, last episode today. Patient has never had a colonoscopy, and she has had multiple EGDs last one was this year, she does not recall banding of esophageal varices. Last year patient underwent multiple abdominal/gastric surgeries by Dr Moreno including but not limited to laparotomy, antrectomy with Colten-en-Y reconstruction, duodenal stump leak repair." The patient's hemoglobin initially was 7.2 the patient's hemoglobin had dropped to 6.9 the patient was transfused 2 units of packed red blood cells hemoglobin improved to 10.7 with a total 4 units of packed red blood cells were transfused. 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 The patient's hemoglobin then stabilized and on the day of discharge was 10.2. The patient initially had hypovolemic shock and was two IV fluid resuscitation. The patient's has a history of alcohol use disorder had to not having signs of alcohol withdrawal during hospitalization and was discharged with a prescription of the [facility] and recommendations good daily AA meetings The patient has a UTI secondary to cystitis which grew out Klebsiella pneumonia, E coli and enterococcus faecalis was sensitive to fluoroquinolones and the patient was treated with a IV ciprofloxacin and discharged with a prescription for ciprofloxacin 500 mg b.i.d. a total of two days prescriptions as well as prescription for Florastor probiotic and I recommendations to take [id number] probiotic if Florastor is not covered by her insurance. The patient also had uncontrolled hypertension home was on 5 mg of lisinopril which was increased to 20 mg and the patient has started amlodipine 5 mg daily the patient's blood pressure improved and was 130/85 in the morning of the day of discharge. The patient also requested opiate pain medication as she was having severe abdominal pain I did discharge the patient has a short script of [place] 10/325 one tablet every 8 hours for severe pain a total of 14 tablets were written. Gen. No acute distress alert and oriented 4 Lungs clear to ascultation bilaterally, no wheezes rales or rhonchi appreciated Heart normal sinus rhythm no murmurs rubs or clicks noted Abdomen soft mild generalized tenderness bowel sounds are normoactive Lower extremities no clubbing cyanosis, nor edema appreciated bilaterally The patient felt ready to be discharged and was medically cleared to be discharg ed on 04/08/2025 The patient was seen and evaluated on day of discharge. Time spent on discharge 35 minutes *Problems/Diagnosis: (1) Upper gastrointestinal bleeding Status: Acute Total Time Spent on D/C: > 30 Minutes Date of Service: Apr 08, 2025 Billing Provider: LITO CANELA DO Common Visit Codes: 92898-HIC/OBS DISCH DAY >30min LITO CANELA DO Apr 08, 2025 19:34
== END 2025-04-08 15:36 | disposition home or self-care (01) | DRG 871 ==
LOC: ER 16:20 → ED HOLD 19:54 → PCU 3S 04-03 11:56
PROVIDERS: ADMIT Internal Medicine; ATTEND Nurse Practitioner Family
PROC: BW211ZZ Computerized Tomography (CT Scan) of Abdomen and Pelvis using Low Osmolar Contrast (ICD-10-PCS; principal; 2025-04-02)
PROC: 30233N1 Transfusion of Nonautologous Red Blood Cells into Peripheral Vein, Percutaneous Approach (ICD-10-PCS; 2025-04-02)
PROC: CF141ZZ Planar Nuclear Medicine Imaging of Gallbladder using Technetium 99m (Tc-99m) (ICD-10-PCS; 2025-04-04)
PROC: 0DBA8ZX Excision of Jejunum, Via Natural or Artificial Opening Endoscopic, Diagnostic (ICD-10-PCS; 2025-04-04)
PROC: 0DJD8ZZ Inspection of Lower Intestinal Tract, Via Natural or Artificial Opening Endoscopic (ICD-10-PCS; 2025-04-04)
DX: A41.9 Sepsis, unspecified organism (principal); K25.4 Chronic or unspecified gastric ulcer with hemorrhage; R57.1 Hypovolemic shock; E87.1 Hypo-osmolality and hyponatremia; F41.9 Anxiety disorder, unspecified; Z66 Do not resuscitate; N30.90 Cystitis, unspecified without hematuria; F31.9 Bipolar disorder, unspecified; D64.9 Anemia, unspecified; F10.10 Alcohol abuse, uncomplicated; G89.4 Chronic pain syndrome; I10 Essential (primary) hypertension; B96.1 Klebsiella pneumoniae [K. pneumoniae] as the cause of diseases classified elsewhere; B96.20 Unspecified Escherichia coli [E. coli] as the cause of diseases classified elsewhere; Z98.84 Bariatric surgery status
CPT/HCPCS: 36415; 36430; 43239; 45378; 71045; 74178; 78278; 80053; 80202; 80305; 80320; 81001; 82140; 82150; 82272; 82728; 82800; 82948; 83540; 83550; 83605; 83690; 83735; 84100; 84145; 85007; 85008; 85025; 85027; 85610; 85730; 86885; 86900; 86901; 86920; 87040; 87077; 87081; 87088; 87186; 96361; 96374; 96375; 96376; 97161; 97530; 99291; A4620; A6258; A9560; C1751; C1889; G0378; J0360; J0744; J2060; J2250; J2270; J2354; J2405; J2470; J2543; J2704; J3010; J3373; J3375; J3411; J3475; J3480; J3490; J7030; J7040; J7050; J7070; J7120; P9016; Q9963; Q9967